=== PATIENT | male | born 1930 | race Caucasian/White ===

== ENCOUNTER 2019-12-18 11:18 | Inpatient (IN) | payer MEDICARE, BC ==
[~2019-12-18] VITALS: Ht 182.9 cm; Wt 92.3 kg
--- NOTE | 2019-12-18 11:35 | PHYS DOC ---
Past History Past Medical History: Anxiety, Depression, GERD, High Cholesterol, Hypertension Past Medical History BPH Past Surgical History: No Surgical History Smoking: Non-smoker Alcohol Use: None General Adult EDM: Chief Complaint: MECHANICAL FALL HPI: HPI: Patient is an 89 year old male who presents for evaluation of neck, left shoulder and low back pain after an apparent mechanical fall. Patient has dementia and is somewhat a poor historian. Patient lives in assisted living. This was a witnessed fall by his roommate. He fell using his walker and getting into a chair. The chair did break. There is some minimal bruising present. Patient has no focal deficits or lateralizing signs. Patient did arrived via ambulance for evaluation. C-collar was placed by the paramedics prior to arrival. Patient is not on blood thinners Review of Systems: Review of Systems: Constitutional: Denies fever or chills Eyes: Denies change in visual acuity HENT: Denies nasal congestion or sore throat Respiratory: Denies cough or shortness of breath Cardiovascular: Denies chest pain or edema GI: Denies abdominal pain, nausea, vomiting, bloody stools or diarrhea : Denies dysuria Musculoskeletal: has back pain and left shoulder pain Integument: Denies rash Neurologic: Denies headache, focal weakness or sensory changes Endocrine: Denies polyuria or polydipsia Lymphatic: Denies swollen glands Psychiatric: Denies depression or anxiety Heart Score: Risk Factors: Risk Factors: DM, Current or recent (<one month) smoker, HTN, HLP, family history of CAD, obesity. Risk Scores: Score 0 - 3: 2.5% MACE over next 6 weeks - Discharge Home Score 4 - 6: 20.3% MACE over next 6 weeks - Admit for Clinical Observation Score 7 - 10: 72.7% MACE over next 6 weeks - Early Invasive Strategies Allergies: Allergies: Allergies Coded Allergies Type Severity Reaction Last Updated Verified enalaprilat Allergy Unknown 12/18/19 Yes Physical Exam: PE: Constitutional: Well developed, well nourished, mild acute distress, non-toxic appearance. [] HENT: Normocephalic, atraumatic, bilateral external ears normal, oropharynx moist, no oral exudates, nose normal. [] Eyes: PERRL, EOMI, conjunctiva normal, no discharge. [] Neck: Normal range of motion, no tenderness, supple. [] Cardiovascular:Heart rate regular rhythm, no murmur [] Lungs & Thorax: Bilateral breath sounds clear to auscultation [] Abdomen: Bowel sounds normal, soft, no tenderness, no pulsatile masses. [] Skin: Warm, dry, no erythema, no rash. [] Back: moderate tenderness lower back. [] Extremities: tenderness left shoulder, no cyanosis ROM intact, mild edema. [] Neurologic: Alert and oriented to person only, normal motor function, normal sensory function, no focal deficits noted. [] Psychologic: Affect abnormal, judgement abnormal, mood abnormal. [] Current Patient Data: Labs: Laboratory Tests Test 12/18/19 11:40 12/18/19 12:49 White Blood Count 8.8 x10^3/uL Red Blood Count 3.88 x10^6/uL Hemoglobin 12.8 g/dL Hematocrit 38.4 % Mean Corpuscular Volume 99 fL Mean Corpuscular Hemoglobin 33 pg Mean Corpuscular Hemoglobin Concent 33 g/dL Red Cell Distribution Width 13.4 % Platelet Count 179 x10^3/uL Neutrophils (%) (Auto) 73 % Lymphocytes (%) (Auto) 18 % Monocytes (%) (Auto) 6 % Eosinophils (%) (Auto) 3 % Basophils (%) (Auto) 0 % Neutrophils # (Auto) 6.3 x10^3uL Lymphocytes # (Auto) 1.6 x10^3/uL Monocytes # (Auto) 0.5 x10^3/uL Eosinophils # (Auto) 0.2 x10^3/uL Basophils # (Auto) 0.0 x10^3/uL Sodium Level 143 mmol/L Potassium Level 4.3 mmol/L Chloride Level 108 mmol/L Carbon Dioxide Level 27 mmol/L Anion Gap 8 Blood Urea Nitrogen 26 mg/dL Creatinine 1.2 mg/dL Estimated GFR (Cockcroft-Gault) 57.1 BUN/Creatinine Ratio 22 Glucose Level 93 mg/dL Calcium Level 8.6 mg/dL Total Bilirubin 0.3 mg/dL Aspartate Amino Transf (AST/SGOT) 15 U/L Alanine Aminotransferase (ALT/SGPT) 22 U/L Alkaline Phosphatase 67 U/L Troponin I Quantitative < 0.017 ng/mL Total Protein 6.5 g/dL Albumin 3.3 g/dL Albumin/Globulin Ratio 1.0 Urine Collection Type Unknown Urine Color Yellow Urine Clarity Clear Urine pH 7.0 Urine Specific Kirby 1.025 Urine Protein Neg Urine Glucose (UA) Neg mg/dL Urine Ketones (Stick) Neg mg/dL Urine Blood Neg Urine Nitrite Neg Urine Bilirubin Neg Urine Urobilinogen Dipstick 0.2 mg/dL Urine Leukocyte Esterase Neg Urine RBC 1-2 /HPF Urine WBC Occ /HPF Urine Squamous Epithelial Cells Few /LPF Urine Bacteria 0 /HPF Current Medications Medications (Trade) Dose Ordered Sig/Shavon Route PRN Reason Start Time Stop Time Status Last Admin Dose Admin Hydralazine HCl (Apresoline) 10 mg 1X ONCE IV 12/18/19 13:00 12/18/19 13:02 DC 12/18/19 13:17 Vital Signs: Vital Signs Date Time Temp Pulse Resp B/P (MAP) Pulse Ox O2 Delivery O2 Flow Rate FiO2 12/18/19 11:24 97.8 66 14 168/91 (116 95 Room Air EKG: EKG: EKG read at 11:42 AM showed normal sinus rhythm, leftward axis, flattened T wave lead III and aVF, otherwise unremarkable, not STEMI rate 67 [] Radiology/Procedures: Radiology/Procedures: [place] [address] IMAGING REPORT Signed PATIENT: EVELIO BALDERRAMA ACCOUNT: [id number] : 1930 LOCATION: ER AGE: 89 SEX: M EXAM STATUS: REG ER ORD. PHYSICIAN: MELVA DAS DO REASON: pain, fall, injury PROCEDURE: SHOULDER 2+V LEFT Examination: SHOULDER 2+V LEFT History: Reason: pain, fall, injury / Spl. Instructions: / History: Comparison/Correlation: None Findings: Total 4 images of the left shoulder were obtained with portable technique. Osteopenia is present. Glenohumeral joint relationship is unremarkable. Narrowing of the the acromioclavicular and glenohumeral joints is present compatible with age. No significant degenerative change identified. Old left-sided rib fractures are present. Soft tissues are unremarkable. No acute fracture or bone destruction. Impression: No acute processes. Electronically signed by: Louie Esquivel MD (12/18/2019 12:31 PM) [id number] DICTATED AND SIGNED BY: LOUIE ESQUIVEL MD DATE: 12/18/19 1231 CC: MELVA DAS DO; DAVION HAYS MD ~ [] [address] [address] IMAGING REPORT Signed PATIENT: EVELIO BALDERRAMA ACCOUNT: [id number] : 1930 LOCATION: ER AGE: 89 SEX: M EXAM STATUS: REG ER ORD. PHYSICIAN: MELVA DAS DO REASON: fall, neck pain, weakness PROCEDURE: CT LUMBAR SPINE WO CONTRAST CT lumbar spine without contrast: Reason for examination: Fell with spine pain. Helical images were obtained to the lumbar spine with no contrast administered. Reconstruction was performed in sagittal and coronal planes. Exposure: One or more of the following individualized dose reduction techniques were utilized for this examination: 1. Automated exposure control 2. Adjustment of the mA and/or kV according to patient size 3. Use of iterative reconstruction technique. There is no acute fracture or subluxation seen. Posterior elements are intact. There are however degenerative changes and there is severe degenerative disc disease at the L3-4 and L4-5 disc levels. Hypertrophic changes at the posterior endplates and facet joints causes mild stenosis at the L2-3 level.There are also hypertrophic changes off the endplates and facet joints at the L3-4 disc level with mild right lateral recess and neural foraminal stenosis. No other site of significant spinal stenosis is evident. No acute abnormality seen at the sacrum or at the sacroiliac joints. IMPRESSION: No acute abnormality lumbar spine. 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 There is mild central stenosis at the L2-3 level. There is mild right lateral recess and neural foraminal stenosis at the L3-4 level. Electronically signed by: Marcy Bernstein MD (12/18/2019 12:37 PM) [facility] DICTATED AND SIGNED BY: MARCY BERNSTEIN MD DATE: 12/18/19 1237 CC: MELVA DAS DO; DAVION HAYS MD ~ [address] [address] IMAGING REPORT Signed PATIENT: EVELIO BALDERRAMA ACCOUNT: [id number] : 1930 LOCATION: ER AGE: 89 SEX: M EXAM STATUS: REG ER ORD. PHYSICIAN: MELVA DAS DO REASON: pelvis/hip area pain after injury PROCEDURE: PELVIS Pelvis AP portable at 1234: Reason for examination: Pelvic/hip pain after injury. There are postop changes in the left hip with a proximal femoral nail in place. No acute fractures seen in the pelvis or at the hips. Joint spaces are maintained. No abnormality seen at the sacrum or sacroiliac joints. IMPRESSION: Postop changes at the left hip. No acute bony abnormality in the pelvis. Electronically signed by: Marcy Bernstein MD (12/18/2019 1:30 PM) [facility] DICTATED AND SIGNED BY: MARCY BERNSTEIN MD DATE: 12/18/19 1330 CC: MELVA DAS DO; DAVION HAYS MD ~ Impressions: [place] [address] IMAGING REPORT Signed PATIENT: EVELIO BALDERRAMA ACCOUNT: [id number] : 1930 LOCATION: ER AGE: 89 SEX: M EXAM STATUS: REG ER ORD. PHYSICIAN: MELVA DAS DO REASON: fall, neck pain, weakness PROCEDURE: CT HEAD AND CERVICAL SPINE WO RS Compliance Statement: One or more of the following individualized dose reduction techniques were utilized for this examination: 1. Automated exposure control 2. Adjustment of the mA and/or kV according to patient size 3. Use of iterative reconstruction technique CT HEAD AND CERVICAL SPINE WITHOUT CONTRAST History: Reason: fall, neck pain, weakness Comparison: None. Procedure: Axial images are obtained of the head from the skull base through the vertex without IV contrast. Noncontrast helical CT of the cervical spine was performed. Axial, sagittal, and coronal reconstructions were obtained. Findings: The ventricles and sulci are prominent, consistent with age-related cerebral atrophy. There is supratentorial white matter hypoattenuation. This is a nonspecific finding but is commonly due to chronic small vessel ischemic disease in a patient of this age. No mass-effect, midline shift, hemorrhage or obvious acute infarction is identified. Basilar cisterns are patent. Bone windows demonstrate no significant calvarial abnormality. The visualized paranasal sinuses are clear. Mastoid air cells are well aerated. There is no evidence of acute fracture or acute malalignment of the cervical spine. There are no perched or jumped facet joints. The facet joints are severely hypertrophic. The right C2/C3 facet joint is fused. There is minimal grade 1 retrolisthesis of C5 on C6. Alignment is otherwise maintained. There is degenerative endplate spurring. There is disc space narrowing of C5/C6 and C6/C7. Vacuum disc phenomenon C5/C6. There is a 2.6 cm probable sebaceous cyst of the posterior right neck at the level of C3. Mild carotid artery calcification. The visualized lung apices are clear. IMPRESSION: 1. No acute intracranial abnormality. 2. No acute fracture of the cervical spine. Electronically signed by: Cheikh Garcia MD (12/18/2019 12:34 PM) [id number] DICTATED AND SIGNED BY: CHEIKH GARCIA MD DATE: 12/18/19 1234 CC: MELVA DAS DO; DAVION HAYS MD ~ Course & Med Decision Making: Course & Med Decision Making Pertinent Labs and Imaging studies reviewed. (See chart for details) [] Dragon Disclaimer: Eligio Disclaimer: This electronic medical record was generated, in whole or in part, using a voice recognition dictation system. 1245 Stable, baseline appropriate at this time. C-collar cleared at this time. Pt is resting comfortably. 1410 stable, patient awake alert and is not in distress. Blood pressure improved to 172/80s. We will talk to family before final disposition decision. Lab work and urinalysis was unremarkable. There is no fractures noted on the multiple x-rays obtained including his shoulder, pelvis and hip as well as head and neck. 1440 we were trying to ambulate patient after checking to make sure he does ambulate at baseline. As soon as patient sat up he immediately started vomiting. Disposition status will be admission for stabilization. Blood pressure also back up to [address] head was unremarkable. Dr. Dai called to discuss case. Departure Departure: Impression: Primary Impression: Contusion of left hip Qualified Codes: S70.02XA - Contusion of left hip, initial encounter Additional Impressions: Uncontrolled hypertension Nausea & vomiting Qualified Codes: R11.2 - Nausea with vomiting, unspecified Contusion of left shoulder Qualified Codes: S40.012A - Contusion of left shoulder, initial encounter Contusion of lower back Qualified Codes: S30.0XXA - Contusion of lower back and pelvis, initial encounter Fall, accidental Qualified Codes: W19.XXXA - Unspecified fall, initial encounter Disposition: 09 ADMITTED INPATIENT (Dr. Dai to admit) Condition: STABLE Justification of Admission: Justification of Admission: Justification of Admission Dx: N/A Hypertension: Symp at Rest MELVA DAS DO Dec 18, 2019 11:35
[2019-12-18 11:57] LABS: BASO % 0 % (0-3); EOS # 0.2 x10^3/uL (0.0-0.7); EOS % 3 % (0-3); HEMATOCRIT 38.4 % (39.0-53.0); HEMOGLOBIN 12.8 g/dL (13.0-17.5); LYMPH # 1.6 x10^3/uL (1.0-4.8); LYMPH % 18 % (24-48); MEAN CORPUSCULAR HEMOGLOBIN 33 pg (25-35); MEAN CORPUSCULAR HGB CONC 33 g/dL (31-37); MEAN CORPUSCULAR VOLUME 99 fL (79-100); MONO # 0.5 x10^3/uL (0.0-1.1); MONO % 6 % (0-9); NEUT # 6.3 x10^3uL (1.8-7.7); NEUT % 73 % (31-73); PLATELET COUNT 179 x10^3/uL (140-400); RED BLOOD COUNT 3.88 x10^6/uL (4.30-5.70); RED CELL DISTRIBUTION WIDTH 13.4 % (11.5-14.5); WHITE BLOOD COUNT 8.8 x10^3/uL (4.0-11.0)
[2019-12-18 12:06] LABS: CALCIUM 8.6 mg/dL (8.5-10.1); CREATININE 1.2 mg/dL (0.7-1.3); GFR 57.1; POTASSIUM 4.3 mmol/L (3.5-5.1)
[2019-12-18 12:12] LABS: ALBUMIN 3.3 g/dL (3.4-5.0); TOTAL BILIRUBIN 0.3 mg/dL (0.2-1.0); TOTAL PROTEIN 6.5 g/dL (6.4-8.2)
--- NOTE | 2019-12-18 12:34 | RAD ---
Examination: SHOULDER 2+V LEFT History: Reason: pain, fall, injury / Spl. Instructions: / History: Comparison/Correlation: None Findings: Total 4 images of the left shoulder were obtained with portable technique. Osteopenia is present. Glenohumeral joint relationship is unremarkable. Narrowing of the the acromioclavicular and glenohumeral joints is present compatible with age. No significant degenerative change identified. Old left-sided rib fractures are present. Soft tissues are unremarkable. No acute fracture or bone destruction. Impression: No acute processes. Electronically signed by: Louie Phipps MD (12/18/2019 12:31 PM) [id number]
--- NOTE | 2019-12-18 12:37 | RAD ---
PQRS Compliance Statement: One or more of the following individualized dose reduction techniques were utilized for this examination: 1. Automated exposure control 2. Adjustment of the mA and/or kV according to patient size 3. Use of iterative reconstruction technique CT HEAD AND CERVICAL SPINE WITHOUT CONTRAST History: Reason: fall, neck pain, weakness Comparison: None. Procedure: Axial images are obtained of the head from the skull base through the vertex without IV contrast. Noncontrast helical CT of the cervical spine was performed. Axial, sagittal, and coronal reconstructions were obtained. Findings: The ventricles and sulci are prominent, consistent with age-related cerebral atrophy. There is supratentorial white matter hypoattenuation. This is a nonspecific finding but is commonly due to chronic small vessel ischemic disease in a patient of this age. No mass-effect, midline shift, hemorrhage or obvious acute infarction is identified. Basilar cisterns are patent. Bone windows demonstrate no significant calvarial abnormality. The visualized paranasal sinuses are clear. Mastoid air cells are well aerated. There is no evidence of acute fracture or acute malalignment of the cervical spine. There are no perched or jumped facet joints. The facet joints are severely hypertrophic. The right C2/C3 facet joint is fused. There is minimal grade 1 retrolisthesis of C5 on C6. Alignment is otherwise maintained. There is degenerative endplate spurring. There is disc space narrowing of C5/C6 and C6/C7. Vacuum disc phenomenon C5/C6. There is a 2.6 cm probable sebaceous cyst of the posterior right neck at the level of C3. Mild carotid artery calcification. The visualized lung apices are clear. IMPRESSION: 1. No acute intracranial abnormality. 2. No acute fracture of the cervical spine. Electronically signed by: Cehikh Garcia MD (12/18/2019 12:34 PM) [id number]
--- NOTE | 2019-12-18 12:39 | RAD ---
CT lumbar spine without contrast: Reason for examination: Fell with spine pain. Helical images were obtained to the lumbar spine with no contrast administered. Reconstruction was performed in sagittal and coronal planes. Exposure: One or more of the following individualized dose reduction techniques were utilized for this examination: 1. Automated exposure control 2. Adjustment of the mA and/or kV according to patient size 3. Use of iterative reconstruction technique. There is no acute fracture or subluxation seen. Posterior elements are intact. There are however degenerative changes and there is severe degenerative disc disease at the L3-4 and L4-5 disc levels. Hypertrophic changes at the posterior endplates and facet joints causes mild stenosis at the L2-3 level.There are also hypertrophic changes off the endplates and facet joints at the L3-4 disc level with mild right lateral recess and neural foraminal stenosis. No other site of significant spinal stenosis is evident. No acute abnormality seen at the sacrum or at the sacroiliac joints. IMPRESSION: No acute abnormality lumbar spine. 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 There is mild central stenosis at the L2-3 level. There is mild right lateral recess and neural foraminal stenosis at the L3-4 level. Electronically signed by: Kasey Suh MD (12/18/2019 12:37 PM) ISIAH
[2019-12-18] MEDS ORDERED: hydrALAZINE 20 MG/ML VIAL. IV ONE (13:00)
--- NOTE | 2019-12-18 13:23 | EKG ---
[address] [address] Test Date: 2019-12-18 Test Time: 11:37:51 Pat Name: Brendan Morse Department: Room: Gender: M [place] Installer: : 1930 Requested By: MELVA DAS Order Number: [id number] Reading MD: Measurements Intervals [facility] Rate: 67 P: 1 AK: 224 QRS: -14 QRSD: 106 T: 28 QT: 402 QTc: 428 Interpretive Statements SINUS RHYTHM PROLONGED AK INTERVAL LEFTWARD AXIS QRS(T) CONTOUR ABNORMALITY CONSIDER INFERIOR INFARCT ABNORMAL ECG RI6.02 No previous ECG available for comparison
--- NOTE | 2019-12-18 13:33 | RAD ---
Pelvis AP portable at 1234: Reason for examination: Pelvic/hip pain after injury. There are postop changes in the left hip with a proximal femoral nail in place. No acute fractures seen in the pelvis or at the hips. Joint spaces are maintained. No abnormality seen at the sacrum or sacroiliac joints. IMPRESSION: Postop changes at the left hip. No acute bony abnormality in the pelvis. Electronically signed by: Kasey Suh MD (12/18/2019 1:30 PM) ISIAH
[2019-12-18 13:38] LABS: BILIRUBIN,URINE NEG (NEG); CLARITY,URINE CLEAR; COLOR,URINE YELLOW; GLUCOSE,URINE NEG (NEG); NITRITE,URINE NEG (NEG); UROBILINOGEN,URINE 0.2 mg/dL (0.2 mg/dL)
[2019-12-18 13:39] LABS: BACTERIA,URINE 0 /HPF (0-FEW); SQUAMOUS EPITHELIAL CELL,UR FEW /LPF; WBC,URINE OCC /HPF (0-4)
[2019-12-18] MEDS ORDERED: KETOROLAC 15 MG/ML VIAL. IVP ONE (14:15)
[2019-12-18] MEDS ORDERED: ONDANSETRON PF 4 MG/2 ML VIAL. IVP ONE (14:45)
[2019-12-18] MEDS ORDERED: ONDANSETRON PF 4 MG/2 ML VIAL. IVP PRN (15:45)
--- NOTE | 2019-12-18 17:30 | NUR ---
Patient arrived to unit via EMS. Patients VS obtained and are stable. Patient is offered food and drink. Patient is resting comfortably in bed at this time. Dr. Dai notified of admission held aspirin and ibuprofen. Will continue to monitor.
[2019-12-18] MEDS ORDERED: QUET100T4 PO (17:59)
[2019-12-18] MEDS ORDERED: MEMA10TA PO (17:59)
[2019-12-18] MEDS ORDERED: DOCU-109 PO (17:59)
[2019-12-18] MEDS ORDERED: MAG355OR12 PO (17:59)
[2019-12-18] MEDS ORDERED: TAMS0.4C97 PO (17:59)
[2019-12-18] MEDS ORDERED: AMLO5TAB4 PO (17:59)
[2019-12-18] MEDS ORDERED: ASPI-630 PO (17:59)
[2019-12-18] MEDS ORDERED: ACET500T68 PO (17:59)
[2019-12-18] MEDS ORDERED: POLY17PO5 PO (17:59)
[2019-12-18] MEDS ORDERED: CARB200T PO (17:59)
[2019-12-18] MEDS ORDERED: IBUP400T99 PO (17:59)
[2019-12-18] MEDS ORDERED: MELA5TAB21 PO (17:59)
[2019-12-18] MEDS ORDERED: MAGN24003 PO (17:59)
[2019-12-18] MEDS ORDERED: MULT-245 PO (17:59)
[2019-12-18] MEDS ORDERED: LOPE2TAB27 PO (17:59)
[2019-12-18 18:03] VITALS: BP 171/80
[2019-12-18] MEDS ORDERED: LOPERAMIDE 2 MG CAPSULE PO PRN (18:15)
[2019-12-18] MEDS ORDERED: MAG HYDROX/AL HYDROX/SIMETH 30 ML ORAL.SUSP PO PRN (18:15)
[2019-12-18] MEDS ORDERED: MAGNESIUM HYDROXIDE 2,400 MG/30 ML ORAL.SUSP. PO PRN (18:15)
[2019-12-18] MEDS: DOCUSATE SODIUM 100 MG CAPSULE PO SCH (20:29)
[2019-12-18] MEDS: carBAMazepine 200 MG TABLET PO SCH (20:29)
[2019-12-18] MEDS: ACETAMINOPHEN 500 MG TABLET PO SCH (20:29)
[2019-12-18] MEDS: MEMANTINE 10 MG TABLET. PO SCH (20:29)
[2019-12-18] MEDS ORDERED: TAMSULOSIN 0.4 MG CAP.ER.24H. PO SCH (21:00)
[2019-12-18] MEDS ORDERED: IBUPROFEN 400 MG TABLET. PO SCH (21:00)
[2019-12-18] MEDS ORDERED: QUEtiapine 100 MG TABLET. PO SCH (21:00)
[2019-12-18] MEDS ORDERED: MELATONIN 3 MG TABLET PO SCH (21:00)
--- NOTE | 2019-12-18 21:00 | NUR ---
While administering evening medications, pt had a small amount green emesis with multiple pills. Unsure if pt was able to keep any of the medications down. Pt cleaned and is resting in bed comfortably
[2019-12-18 23:30] VITALS: BP 132/76
[2019-12-19 05:32] VITALS: BP 149/77
[2019-12-19] MEDS: carBAMazepine 200 MG TABLET PO SCH (07:55)
[2019-12-19] MEDS: MEMANTINE 10 MG TABLET. PO SCH (07:56)
[2019-12-19] MEDS: DOCUSATE SODIUM 100 MG CAPSULE PO SCH (07:56)
[2019-12-19] MEDS: ACETAMINOPHEN 500 MG TABLET PO SCH ×2 (07:56→14:00)
[2019-12-19] MEDS ORDERED: POLYETHYLENE GLYCOL 3350 17 GM PACKET. PO SCH (09:00)
[2019-12-19] MEDS ORDERED: MULTIVITAMIN with MINERAL TABLET. PO SCH (09:00)
[2019-12-19] MEDS ORDERED: amLODIPine BESYLATE 5 MG TABLET PO SCH (09:00)
[2019-12-19 10:53] VITALS: BP 110/65
--- NOTE | 2019-12-19 14:21 | SSS ---
ADMIT DATE: 12/19/2019 HISTORY OF PRESENT ILLNESS: The patient is an 89-year-old male patient, a resident at [facility], who was brought to the Emergency Room with a mechanical fall. He has dementia and he had a witnessed fall by his roommate. He fell using his walker and getting into a chair; the chair did break and there is some minimal bruising present. The patient has no focal deficit or lateralizing sign. He did arrive by ambulance for evaluation. C-collar was placed by the paramedics prior to arrival. He is not on any blood thinner. He was evaluated in the Emergency Room and basically his lab works were unremarkable and he has had imaging including his x-ray of the shoulder as well as lumbar spine, head and neck and pelvic x-ray and all showed no evidence of any fracture and initially, the plan was for him to be sent back to [facility]; however, while he was still in the Emergency Room and apparently as soon as the patient sat up, he immediately started vomiting. Disposition status changed and therefore, the patient was admitted for observation. He did actually remain without any symptoms; in particular, he had no complaint of headache or pain anywhere. He had no further episodes of nausea or vomiting, has been ambulating without difficulty, tolerating his diet and a decision therefore was made to discharge him back to [facility]. PAST MEDICAL HISTORY: Significant for anxiety, depression, gastroesophageal reflux disease, hypertension, hyperlipidemia and benign prostatic hypertrophy. PAST SURGICAL HISTORY: Unremarkable. FAMILY HISTORY: Noncontributory. SOCIAL HISTORY: He lives at [facility]. He does not smoke, drink alcohol or use any recreational drugs. ALLERGIES: He is allergic to ENALAPRIL. MEDICATIONS: He is currently on following medications: He is on Flomax 0.4 mg at bedtime, amlodipine besylate 5 mg daily, aspirin 81 mg once a day, ibuprofen 400 mg at bedtime, acetaminophen 1000 mg 3 times a day, carbamazepine 200 mg twice a day for trigeminal neuralgia, quetiapine fumarate 100 mg at bedtime, Namenda 10 mg twice a day, Maalox 15 mL every 4 hours as needed, loperamide 2 mg every 2 hours as needed, docusate sodium 100 mg twice a day, milk of magnesia 30 mL p.o. daily p.r.n. for constipation, polyethylene glycol 17 grams daily and multivitamin 1 tablet once a day, melatonin 5 mg at bedtime. REVIEW OF SYSTEMS: As per history of present illness. PHYSICAL EXAMINATION: GENERAL: On arrival to the Emergency Room, he looked well and was clearly in no apparent respiratory distress. No pallor, jaundice, cyanosis or thyromegaly. No jugular venous distention. No limb edema. VITAL SIGNS: His heart rate was 66, blood pressure 168/91, temperature 97.8, respiratory rate was 14 and oxygen saturation was 95%. HEAD, EYES, EARS, NOSE AND THROAT: Normocephalic, atraumatic. NECK: Supple. HEART: Showed normal first and second heart sounds. No gallop, rub or murmur. CHEST: Clear to auscultation. No crepitation or rhonchi. ABDOMEN: Distended, soft, nontender. NEUROLOGIC: He is extremely hard of hearing, but otherwise all his cranial nerves are intact. EXTREMITIES: He moves extremities without difficulty. He ambulates with a walker. LABORATORY DATA: His lab work showed a white cell count of 8800, hemoglobin 13, hematocrit 38, MCV 99 and platelet count of 179,000. His serum sodium 143, potassium 4.3, chloride 108, bicarbonate 27, anion gap of 8, BUN 26, creatinine 1.2, estimated GFR was 57 mL per minute. His glucose was 93, calcium was 8.6. Total bilirubin, AST, ALT, alkaline phosphatase were normal. Total protein was 6.5, albumin was 3.3. X-ray of his right shoulder showed no acute process. X-ray of the lumbar spine showed no acute abnormality detected in the lumbar spine; showed degenerative spondylosis with severe degenerative disk disease at L3-L4 and L4-L5. There is mild central stenosis at L2-L3 level. There is also mild right lateral recess and neural foraminal stenosis at L3-L4. The CT scan of the head and cervical spine showed that the patient has no acute intracranial abnormality and no acute fracture of cervical spine. An x-ray of the pelvis showed that the patient has postoperative changes at the left hip, no acute abnormality in the pelvis. ASSESSMENT AND PLAN: The patient was observed overnight and he remained hemodynamically stable, afebrile. He has no further episodes of fall. No further episodes of nausea and vomiting. He will be discharged back to assisted living facility to continue on all his current medications. DEBORAH HAYDEN MD DR: Shirlene JOB#: [id number] / [id number]
--- NOTE | 2019-12-19 15:23 | NUR ---
Patient is discharged back home to [facility]. Patients IV is D/C'd and tele monitor removed. Patient has all belongings at time of discharge. Report called to [facility].
== END 2019-12-19 15:23 | disposition home or self-care (01) | DRG 605 ==
LOC: ER 11:18 → 1 SOUTH 14:45
PROVIDERS: ADMIT Internal Medicine; ATTEND Internal Medicine
DX: S30.0XXA Contusion of lower back and pelvis, initial encounter (principal); I16.0 Hypertensive urgency; R11.2 Nausea with vomiting, unspecified; S40.012A Contusion of left shoulder, initial encounter; S70.02XA Contusion of left hip, initial encounter; M47.9 Spondylosis, unspecified; M48.061 Spinal stenosis, lumbar region without neurogenic claudication; E78.00 Pure hypercholesterolemia, unspecified; E78.5 Hyperlipidemia, unspecified; F03.90 Unspecified dementia, unspecified severity, without behavioral disturbance, psychotic disturbance, mood disturbance, and anxiety; I10 Essential (primary) hypertension; M51.36 Other intervertebral disc degeneration, lumbar region; N40.0 Benign prostatic hyperplasia without lower urinary tract symptoms; W18.30XA Fall on same level, unspecified, initial encounter; F32.9 Major depressive disorder, single episode, unspecified; F41.9 Anxiety disorder, unspecified; K21.9 Gastro-esophageal reflux disease without esophagitis; Z20.828 Contact with and (suspected) exposure to other viral communicable diseases; W18.39XA Other fall on same level, initial encounter; Y93.89 Activity, other specified; Y92.89 Other specified places as the place of occurrence of the external cause; Y99.8 Other external cause status; Z88.8 Allergy status to other drugs, medicaments and biological substances
CPT/HCPCS: 36415; 70450; 72125; 72131; 72170; 73030; 80053; 81001; 84484; 85025; 93005; 96374; 96375; J0360; J1885; J2405; 99285-25; U0003-CS

== ENCOUNTER 2019-12-20 12:51 | Emergency (ER) | payer BC, MEDICARE ==
[~2019-12-20] VITALS: Ht 177.8 cm; Wt 93.0 kg
[~2019-12-20 12:51] MED LIST: ACET500T68 PO; AMLO5TAB4 PO; ASPI-630 PO; CARB200T PO; DOCU-109 PO; IBUP400T99 PO; LOPE2TAB27 PO; MAG355OR12 PO; MAGN24003 PO; MELA5TAB21 PO; MEMA10TA PO; MULT-245 PO; POLY17PO5 PO; QUET100T4 PO; TAMS0.4C97 PO
--- NOTE | 2019-12-20 13:42 | RAD ---
CT LUMBAR SPINE WO CONTRAST Date: 12/20/2019 1:03 PM Indication: Reason: fell on his back, having back pain / Spl. Instructions: / History: Comparison: 12/18/2019. Technique: Helical CT images of the lumbar spine were obtained without contrast. Coronal and sagittal reformatted images were also performed. One or more of the following dose reduction techniques were utilized: Automated exposure control (AEC), Adjustment of mA and/or kV according to patient size, Use of iterative reconstruction technique such as ASiR, CT scan done according to ALARA and image gently/image wisely. Findings: The lumbar spine is normally aligned. No acute fracture. Vertebral body heights are maintained without compression deformity. No aggressive lytic or blastic osseous lesion. Multilevel degenerative disc space height loss, worst and severe at L3-4. Multilevel mild and moderate spinal canal stenosis secondary to multilevel disc bulging and facet arthrosis. Multilevel mild and moderate neuroforaminal narrowing. Multilevel mild and moderate facet arthrosis. Left renal proteinaceous cyst. Mild aortoiliac atherosclerotic disease. IMPRESSION: No acute osseous abnormality of the lumbar spine. Electronically signed by: Herman Tyson MD (12/20/2019 1:40 PM) [id number]
--- NOTE | 2019-12-20 13:57 | RAD ---
EXAM: CT Head without IV contrast INDICATION: Reason: fell, hit head, confusion / Spl. Instructions: / History: TECHNIQUE: Multi-detector row CT images were obtained of the head without the use of IV contrast. All CT scans performed at this facility utilize dose optimization techniques as appropriate to the exam, including the following: Automated exposure control and adjustment of the mA and/or KV according to patient size (this includes techniques or standardized protocols for targeted exams where dose is indication/reason for exam). COMPARISON: 12/18/[address] FINDINGS: BRAIN PARENCHYMA: No evidence of acute intraparenchymal hemorrhage or infarct. Similar generalized parenchymal volume loss and white matter low density compatible with chronic ischemic microvascular change. VENTRICLES & EXTRA-AXIAL SPACES: Ventricles are within normal limits. Basilar cisterns are patent. No pathologic extra-axial fluid collection or mass. ORBITS: Orbital contents are unremarkable. SINUSES: Visualized paranasal sinuses and mastoid air cells are clear. OSSEOUS & SOFT TISSUES: Calvarium and skull base are intact. IMPRESSION: No acute intracranial pathology. *Note that at the time of initial report, C-spine images are not currently available for review. When they become available, an addendum can be issued including a report on the C-spine findings. The technologist has been contacted for assistance with this issue.* Electronically signed by: Liz Mendiola MD (12/20/2019 1:54 PM) [facility] [place]
--- NOTE | 2019-12-20 14:04 | RAD ---
EXAM: CT Thoracic Spine without IV contrast INDICATION: Reason: fell on his back, having back pain / Spl. Instructions: / History: TECHNIQUE: Multi-detector row CT images were obtained through the thoracic spine without the use of IV contrast. Post-processing sagittal and coronal reconstructed images were obtained for interpretation. All CT scans performed at this facility utilize dose optimization techniques as appropriate to the exam, including the following: Automated exposure control and adjustment of the mA and/or KV according to patient size (this includes techniques or standardized protocols for targeted exams where dose is indication/reason for exam). COMPARISON: Lumbar spine CT same day. FINDINGS: ALIGNMENT: There is no listhesis. Alignment is notable for mild exaggeration of normal thoracic kyphosis. OSSEOUS: The bones are diffusely osteopenic. There are concave deformities at the superior endplates of T3 and T4 with associated loss of height, compatible with age-indeterminate, possibly chronic superior endplate compression fractures. Incidental ossification between the posterior left fifth and sixth and sixth and seventh ribs is noted. DISC SPACES: Mildly narrowed at multiple levels. FACET JOINTS: Unremarkable. SPINAL CANAL: Unremarkable. NEUROFORAMINA: Unremarkable. SOFT TISSUES: Unremarkable. IMPRESSION: Superior endplate compression fractures at T3 and T4, age-indeterminate but likely chronic. No traumatic malalignment and no evidence of an epidural or paraspinal hematoma in the thoracic spine. Electronically signed by: Liz Mendiola MD (12/20/2019 2:01 PM) [facility] [place]
--- NOTE | 2019-12-20 14:24 | RAD ---
C-spine 4 views INDICATION: Fall and neck pain COMPARISON: Head CT same day, T-spine CT same day. FINDINGS: AP, open-mouth odontoid, lateral and swimmer's lateral views of the cervical spine show generalized osteopenia with no evidence of listhesis or no obvious acute fracture. Degenerative changes are present including at the atlantodens articulation, left greater than right. No prevertebral soft tissue swelling is identified. Incidental carotid calcifications are present. IMPRESSION: No acute traumatic finding shown by C-spine x-rays. Based on index of clinical suspicion, additional imaging by CT of the cervical spine can be pursued. Electronically signed by: Liz Mendiola MD (12/20/2019 2:21 PM) [facility] [place]
[2019-12-20 14:33] LABS: BASO % 0 % (0-3); EOS # 0.4 x10^3/uL (0.0-0.7); EOS % 7 % (0-3); HEMATOCRIT 37.6 % (39.0-53.0); HEMOGLOBIN 12.7 g/dL (13.0-17.5); LYMPH # 1.1 x10^3/uL (1.0-4.8); LYMPH % 17 % (24-48); MEAN CORPUSCULAR HEMOGLOBIN 33 pg (25-35); MEAN CORPUSCULAR HGB CONC 34 g/dL (31-37); MEAN CORPUSCULAR VOLUME 98 fL (79-100); MONO # 0.5 x10^3/uL (0.0-1.1); MONO % 9 % (0-9); NEUT # 4.3 x10^3uL (1.8-7.7); NEUT % 67 % (31-73); PLATELET COUNT 147 x10^3/uL (140-400); RED BLOOD COUNT 3.83 x10^6/uL (4.30-5.70); RED CELL DISTRIBUTION WIDTH 13.6 % (11.5-14.5); WHITE BLOOD COUNT 6.4 x10^3/uL (4.0-11.0)
[2019-12-20 14:46] LABS: CALCIUM 8.4 mg/dL (8.5-10.1); CREATININE 1.2 mg/dL (0.7-1.3); GFR 57.1
[2019-12-20 14:52] LABS: ALBUMIN 3.2 g/dL (3.4-5.0); TOTAL BILIRUBIN 0.4 mg/dL (0.2-1.0); TOTAL PROTEIN 6.5 g/dL (6.4-8.2)
[2019-12-20 15:20] VITALS: BP 178/97
--- NOTE | 2019-12-20 15:53 | PHYS DOC ---
Past History Past Medical History: Arthritis, Constipation, Dementia, High Cholesterol, Hypertension, Other Additional Past Medical Histor: trigeminal neuralgia, chronic pains, spondylosis, BPH Past Surgical History: No Surgical History Smoking: Non-smoker Alcohol Use: None General Adult EDM: Chief Complaint: MECHANICAL FALL HPI: HPI: Patient is a 89-year-old male who was brought here from [facility] after he fell. Patient was evaluated here 2 days ago, was admitted to hospital for observation after he fell as well. Work-up did not fi nd any acute problem. Patient complains of back pain, patient said he only had back pain. Patient denies any chest pain, no trouble breathing, no shortness of breath. Patient denies any cough or fever Review of Systems: Review of Systems: Constitutional: Denies fever or chills Eyes: Denies change in visual acuity HENT: Denies nasal congestion or sore throat Respiratory: Denies cough or shortness of breath Cardiovascular: Denies chest pain or edema GI: Denies abdominal pain, nausea, vomiting, bloody stools or diarrhea : Denies dysuria Musculoskeletal: Positive for low back pain, no joint pain. Integument: Denies rash Neurologic: Denies headache, focal weakness or sensory changes Endocrine: Denies polyuria or polydipsia Lymphatic: Denies swollen glands Psychiatric: Denies depression or anxiety Heart Score: Risk Factors: Risk Factors: DM, Current or recent (<one month) smoker, HTN, HLP, family history of CAD, obesity. Risk Scores: Score 0 - 3: 2.5% MACE over next 6 weeks - Discharge Home Score 4 - 6: 20.3% MACE over next 6 weeks - Admit for Clinical Observation Score 7 - 10: 72.7% MACE over next 6 weeks - Early Invasive Strategies Allergies: Allergies: Allergies Coded Allergies Type Severity Reaction Last Updated Verified enalaprilat Allergy Unknown 12/20/19 Yes Physical Exam: PE: Constitutional: Well developed, well nourished, no acute distress, non-toxic appearance. [] HENT: Normocephalic, atraumatic, bilateral external ears normal, oropharynx moist, no oral exudates, nose normal. [] Eyes: PERRLA, EOMI, conjunctiva normal, no discharge. [] Neck: Normal range of motion, no tenderness, supple, no stridor. [] Cardiovascular:Heart rate regular rhythm, no murmur [] Lungs & Thorax: Bilateral breath sounds clear to auscultation [] Abdomen: Bowel sounds normal, soft, no tenderness, no masses, no pulsatile masses. [] Skin: Warm, dry, no erythema, no rash. [] Back: No tenderness, no CVA tenderness. [] Extremities: No tenderness, no cyanosis, no clubbing, ROM intact, no edema. [] Neurologic: Alert and oriented X 3, normal motor function, normal sensory function, no focal deficits noted. [] Psychologic: Affect normal, judgement normal, mood normal. [] Current Patient Data: Labs: Laboratory Tests Test 12/20/19 14:20 White Blood Count 6.4 x10^3/uL (4.0-11.0) Red Blood Count 3.83 x10^6/uL (4.30-5.70) L Hemoglobin 12.7 g/dL (13.0-17.5) L Hematocrit 37.6 % (39.0-53.0) L Mean Corpuscular Volume 98 fL (79-100) Mean Corpuscular Hemoglobin 33 pg (25-35) Mean Corpuscular Hemoglobin Concent 34 g/dL (31-37) Red Cell Distribution Width 13.6 % (11.5-14.5) Platelet Count 147 x10^3/uL (140-400) Neutrophils (%) (Auto) 67 % (31-73) Lymphocytes (%) (Auto) 17 % (24-48) L Monocytes (%) (Auto) 9 % (0-9) Eosinophils (%) (Auto) 7 % (0-3) H Basophils (%) (Auto) 0 % (0-3) Neutrophils # (Auto) 4.3 x10^3uL (1.8-7.7) Lymphocytes # (Auto) 1.1 x10^3/uL (1.0-4.8) Monocytes # (Auto) 0.5 x10^3/uL (0.0-1.1) Eosinophils # (Auto) 0.4 x10^3/uL (0.0-0.7) Basophils # (Auto) 0.0 x10^3/uL (0.0-0.2) Sodium Level 144 mmol/L (136-145) Potassium Level 4.0 mmol/L (3.5-5.1) Chloride Level 108 mmol/L (98-107) H Carbon Dioxide Level 29 mmol/L (21-32) Anion Gap 7 (6-14) Blood Urea Nitrogen 29 mg/dL (8-26) H Creatinine 1.2 mg/dL (0.7-1.3) Estimated GFR (Cockcroft-Gault) 57.1 BUN/Creatinine Ratio 24 (6-20) H Glucose Level 100 mg/dL (70-99) H Calcium Level 8.4 mg/dL (8.5-10.1) L Magnesium Level 2.0 mg/dL (1.8-2.4) Total Bilirubin 0.4 mg/dL (0.2-1.0) Aspartate Amino Transferase (AST) 18 U/L (15-37) Alanine Aminotransferase (ALT) 21 U/L (16-63) Alkaline Phosphatase 58 U/L (46-116) Creatine Kinase 149 U/L (39-308) Total Protein 6.5 g/dL (6.4-8.2) Albumin 3.2 g/dL (3.4-5.0) L Albumin/Globulin Ratio 1.0 (1.0-1.7) Vital Signs: Vital Signs Date Time Temp Pulse Resp B/P (MAP) Pulse Ox O2 Delivery O2 Flow Rate FiO2 12/20/19 15:20 74 22 178/97 (124) 94 12/20/19 13:25 98.7 Room Air EKG: EKG: [] Radiology/Procedures: Radiology/Procedures: [][address] [address] IMAGING REPORT Signed PATIENT: EVELIO BALDERRAMA ACCOUNT: [id number] : 1930 LOCATION: ER AGE: 89 SEX: M EXAM STATUS: REG ER ORD. PHYSICIAN: HILLARY CELAYA DO REASON: fell, hit head, confusion PROCEDURE: CT HEAD AND CERVICAL SPINE WO EXAM: CT Head without IV contrast INDICATION: Reason: fell, hit head, confusion / Spl. Instructions: / History: TECHNIQUE: Multi-detector row CT images were obtained of the head without the use of IV contrast. All CT scans performed at this facility utilize dose optimization techniques as appropriate to the exam, including the following: Automated exposure control and adjustment of the mA and/or KV according to patient size (this includes techniques or standardized protocols for targeted exams where dose is indication/reason for exam). COMPARISON: 12/18/[address] FINDINGS: BRAIN PARENCHYMA: No evidence of acute intraparenchymal hemorrhage or infarct. Similar generalized parenchymal volume loss and white matter low density compatible with chronic ischemic microvascular change. VENTRICLES & EXTRA-AXIAL SPACES: Ventricles are within normal limits. Basilar cisterns are patent. No pathologic extra-axial fluid collection or mass. ORBITS: Orbital contents are unremarkable. SINUSES: Visualized paranasal sinuses and mastoid air cells are clear. OSSEOUS & SOFT TISSUES: Calvarium and skull base are intact. IMPRESSION: No acute intracranial pathology. *Note that at the time of initial report, C-spine images are not currently available for review. When they become available, an addendum can be issued including a report on the C-spine findings. The technologist has been contacted for assistance with this issue.* Electronically signed by: Santiago Mendiola MD (12/20/2019 1:54 PM) [place] [id number] IMAGING REPORT Signed PATIENT: EVELIO BALDERRAMA ACCOUNT: [id number] : 1930 LOCATION: ER AGE: 89 SEX: M EXAM STATUS: REG ER ORD. PHYSICIAN: IHLLARY CELAYA DO REASON: fell on his back, having back pain PROCEDURE: CT THORACIC SPINE WO CONTRAST EXAM: CT Thoracic Spine without IV contrast INDICATION: Reason: fell on his back, having back pain / Spl. Instructions: / History: TECHNIQUE: Multi-detector row CT images were obtained through the thoracic spine without the use of IV contrast. Post-processing sagittal and coronal reconstructed images were obtained for interpretation. All CT scans performed at this facility utilize dose optimization techniques as appropriate to the exam, including the following: Automated exposure control and adjustment of the mA and/or KV according to patient size (this includes techniques or standardized protocols for targeted exams where dose is indication/reason for exam). COMPARISON: Lumbar spine CT same day. FINDINGS: ALIGNMENT: There is no listhesis. Alignment is notable for mild exaggeration of normal thoracic kyphosis. OSSEOUS: The bones are diffusely osteopenic. There are concave deformities at the superior endplates of T3 and T4 with associated loss of height, compatible with age-indeterminate, possibly chronic superior endplate compression fractures. Incidental ossification between the posterior left fifth and sixth and sixth and seventh ribs is noted. DISC SPACES: Mildly narrowed at multiple levels. FACET JOINTS: Unremarkable. SPINAL CANAL: Unremarkable. NEUROFORAMINA: Unremarkable. SOFT TISSUES: Unremarkable. IMPRESSION: Superior endplate compression fractures at T3 and T4, age-indeterminate but likely chronic. No traumatic malalignment and no evidence of an epidural or paraspinal hematoma in the thoracic spine. Electronically signed by: Santiago Mendiola MD (12/20/2019 2:01 PM) [facility] [place] DICTATED AND SIGNED BY: SANTIAGO MENDIOLA MD DATE: 12/20/19 1401 CC: HILLARY CELAYA DO; DAVION HAYS MD ~ DICTATED AND SIGNED BY: SANTIAGO MENDIOLA MD DATE: 12/20/19 1355 CC: HILLARY CELAYA DO; DAVION HAYS MD ~ [place] [address] IMAGING REPORT Signed PATIENT: EVELIO BALDERRAMA ACCOUNT: [id number] : 1930 LOCATION: ER AGE: 89 SEX: M EXAM STATUS: REG ER ORD. PHYSICIAN: HILLARY CELAYA DO REASON: FALL NECK PAIN PROCEDURE: CERVICAL SPINE 2-3V C-spine 4 views INDICATION: Fall and neck pain COMPARISON: Head CT same day, T-spine CT same day. FINDINGS: AP, open-mouth odontoid, lateral and swimmer's lateral views of the cervical spine show generalized osteopenia with no evidence of listhesis or no obvious acute fracture. Degenerative changes are present including at the atlantodens articulation, left greater than right. No prevertebral soft tissue swelling is identified. Incidental carotid calcifications are present. IMPRESSION: No acute traumatic finding shown by C-spine x-rays. Based on index of clinical suspicion, additional imaging by CT of the cervical spine can be pursued. Electronically signed by: Santiago Mendiola MD (12/20/2019 2:21 PM) [facility] [place] DICTATED AND SIGNED BY: SANTIAGO MENDIOLA MD DATE: 12/20/19 1421 CC: HILLARY CELAYA DO; DAVION HAYS MD ~ Course & Med Decision Making: Course & Med Decision Making Pertinent Labs and Imaging studies reviewed. (See chart for details) Patient is an 89-year-old man who was evaluated in the ER after he fell at the assisted living facility, work-up did not find any acute problem. Patient was able to stand up and walk without any problem in the ER. We will discharge patient back to the assisted living facility. Dragon Disclaimer: Dragon Disclaimer: This electronic medical record was generated, in whole or in part, using a voice recognition dictation system. Departure Departure: Impression: Primary Impression: Accident due to mechanical fall without injury Additional Impression: Back pain Disposition: 01 HOME/RESIDENCE PRIOR TO ADM Condition: STABLE Referrals: DAVION HAYS MD (PCP) Patient Instructions: Back Injury Prevention, Back Pain, Adult Additional Instructions: Thank you for visiting our Emergency Department. We appreciate you trusting us with your care. If any additional problems come up don't hesitate to return to visit us. Please follow up with your primary care provider so they can plan additional care if needed and know about the problem that you had. If symptoms worsen come back to the Emergency Department. Any concerning symptoms that start such as chest pain, shortness of air, weakness or numbness on one side of the body, running high fevers or any other concerning symptoms return to the ER. Justification of Admission: Justification of Admission: Justification of Admission Dx: N/A Hypertension: Symp at Rest HILLARY CELAYA DO Dec 20, 2019 15:53
== END 2019-12-20 16:26 | disposition home or self-care (01) ==
LOC: ER 12:51
DX: M54.5 Low back pain (principal); M19.90 Unspecified osteoarthritis, unspecified site; F03.90 Unspecified dementia, unspecified severity, without behavioral disturbance, psychotic disturbance, mood disturbance, and anxiety; E78.00 Pure hypercholesterolemia, unspecified; I10 Essential (primary) hypertension; G89.29 Other chronic pain; Z88.8 Allergy status to other drugs, medicaments and biological substances; W18.39XD Other fall on same level, subsequent encounter
CPT/HCPCS: 36415; 70450; 72040; 72125; 72128; 72131; 80053; 82550; 83735; 85025; 99285

== ENCOUNTER 2019-12-21 05:21 | Observation (INO) | payer MEDICARE ==
[~2019-12-21] VITALS: Ht 188 cm; Wt 91.0 kg
--- NOTE | 2019-12-21 05:50 | PHYS DOC ---
Past History Past Medical History: Arthritis, Constipation, Dementia, High Cholesterol, Hypertension, Other Additional Past Medical Histor: trigeminal neuralgia, chronic pains, spondylosis, BPH (NIKKI ORNELAS DO) Past Surgical History: No Surgical History (NIKKI ORNELAS DO) Smoking: Non-smoker Alcohol Use: None (NIKKI ORNELAS DO) General Adult EDM: Chief Complaint: Fall HPI: HPI: 89-year-old male presents via EMS from his care facility with 3 falls in the last 3 days. Today, the patient states that he was trying to get out of bed when he started to feel dizzy and fell onto the floor. He crawled to the bathroom. He stayed there and that is where his caregivers found him. His walker was next to the bed, but the patient was on the bathroom floor. He tells me he has been having episodes of "swirling". Things look like they are spinning. This is intermittent and he is not sure exactly when it happens. He did have an episode in the emergency room, but currently is symptom-free. His only complaint is some upper neck pain. He denies numbness, tingling, altered sensation. He does not believe he has any other injuries. Patient is reported to have some level of dementia at baseline. He denies recent fever or chills. (NIKKI ORNELAS DO) Review of Systems: Review of Systems: Constitutional: Denies fever or chills Eyes: Denies change in visual acuity HENT: Neck pain Respiratory: Denies cough or shortness of breath Cardiovascular: Denies chest pain or edema GI: Denies abdominal pain, nausea, vomiting, bloody stools or diarrhea : Denies dysuria Musculoskeletal: Denies back pain or joint pain Integument: Denies rash Neurologic: Dizziness. Denies headache, focal weakness or sensory changes Endocrine: Denies polyuria or polydipsia Lymphatic: Denies swollen glands Psychiatric: Denies depression or anxiety (NIKKI ORNELAS DO) Heart Score: Risk Factors: Risk Factors: DM, Current or recent (<one month) smoker, HTN, HLP, family history of CAD, obesity. Risk Scores: Score 0 - 3: 2.5% MACE over next 6 weeks - Discharge Home Score 4 - 6: 20.3% MACE over next 6 weeks - Admit for Clinical Observation Score 7 - 10: 72.7% MACE over next 6 weeks - Early Invasive Strategies (NIKKI ORNELAS DO) Allergies: Allergies: Allergies Coded Allergies Type Severity Reaction Last Updated Verified enalaprilat Allergy Unknown 12/20/19 Yes (NIKKI ORNELAS DO) Physical Exam: PE: Constitutional: Well developed, well nourished, no acute distress, non-toxic appearance. [] HENT: Very hard of hearing. Normocephalic, atraumatic, bilateral external ears normal, oropharynx moist, no oral exudates, nose normal. [] Eyes: PERRLA, EOMI, conjunctiva normal, no discharge. [] Neck: Normal range of motion, mild upper cervical paraspinal muscle tenderness, supple, no stridor. [] Cardiovascular: Heart rate regular rhythm, no murmur [] Lungs & Thorax: Bilateral breath sounds clear to auscultation [] Abdomen: Bowel sounds normal, soft, no tenderness, no masses, no pulsatile masses. [] Skin: Warm, dry, no erythema, no rash. [] Back: No tenderness, no CVA tenderness. [] Extremities: No tenderness, no cyanosis, no clubbing, ROM intact, no edema. [] Neurologic: Alert and oriented X 3, normal motor function, normal sensory function, no focal deficits noted. [] Psychologic: Affect normal, judgement normal, mood normal. [] (NIKKI ORNELAS DO) Current Patient Data: Labs: Laboratory Tests Test 12/21/19 05:35 White Blood Count 7.4 x10^3/uL (4.0-11.0) Red Blood Count 3.71 x10^6/uL (4.30-5.70) L Hemoglobin 12.4 g/dL (13.0-17.5) L Hematocrit 36.5 % (39.0-53.0) L Mean Corpuscular Volume 98 fL (79-100) Mean Corpuscular Hemoglobin 34 pg (25-35) Mean Corpuscular Hemoglobin Concent 34 g/dL (31-37) Red Cell Distribution Width 13.5 % (11.5-14.5) Platelet Count 144 x10^3/uL (140-400) Neutrophils (%) (Auto) 69 % (31-73) Lymphocytes (%) (Auto) 15 % (24-48) L Monocytes (%) (Auto) 9 % (0-9) Eosinophils (%) (Auto) 6 % (0-3) H Basophils (%) (Auto) 0 % (0-3) Neutrophils # (Auto) 5.2 x10^3uL (1.8-7.7) Lymphocytes # (Auto) 1.1 x10^3/uL (1.0-4.8) Monocytes # (Auto) 0.7 x10^3/uL (0.0-1.1) Eosinophils # (Auto) 0.4 x10^3/uL (0.0-0.7) Basophils # (Auto) 0.0 x10^3/uL (0.0-0.2) Sodium Level 144 mmol/L (136-145) Potassium Level 3.7 mmol/L (3.5-5.1) Chloride Level 107 mmol/L (98-107) Carbon Dioxide Level 27 mmol/L (21-32) Anion Gap 10 (6-14) Blood Urea Nitrogen 26 mg/dL (8-26) Creatinine 1.1 mg/dL (0.7-1.3) Estimated GFR (Cockcroft-Gault) 63.2 BUN/Creatinine Ratio 24 (6-20) H Glucose Level 96 mg/dL (70-99) Calcium Level 8.6 mg/dL (8.5-10.1) Total Bilirubin 0.8 mg/dL (0.2-1.0) Aspartate Amino Transferase (AST) 22 U/L (15-37) Alanine Aminotransferase (ALT) 25 U/L (16-63) Alkaline Phosphatase 58 U/L (46-116) Troponin I Quantitative < 0.017 ng/mL (0-0.055) Total Protein 6.5 g/dL (6.4-8.2) Albumin 3.1 g/dL (3.4-5.0) L Albumin/Globulin Ratio 0.9 (1.0-1.7) L (NELSON MARSH DO) EKG: EKG: [] (NIKKI ORNELAS DO) EKG: EKG at 0625. Sinus rhythm. Heart rate 66. First-degree AV block with LA interval of 206 ms. Otherwise normal intervals. Inferior Q waves. No STEMI. Interpreted by me. (NELSON MARSH DO) Radiology/Procedures: Radiology/Procedures: [] (NIKKI ORNELAS DO) Radiology/Procedures: PROCEDURE: CT HEAD AND CERVICAL SPINE WO INDICATION: Reason: Headache and neck pain, 3 falls in 3 days / Spl. Instructions: / History: COMPARISON: One day prior TECHNIQUE: Axial CT images obtained through the head and cervical spine. One or more of the following individualized dose reduction techniques were utilized for this examination: 1. Automated exposure control; 2. Adjustment of the mA and/or kV according to patient size; 3. Use of iterative reconstruction technique. FINDINGS: Head: No midline shift. Suprasellar cistern is not effaced. Prominence of ventricles and sulci which can be seen with age-related volume loss. Regions of low density are again seen within the white matter. There is buckling of the nasal septum. No acute intracranial hemorrhage. Calcific atherosclerosis. Small defect within the right suboccipital region which could be postoperative. Osseous demineralization. Cervical spine: Degenerative changes throughout the cervical spine with osteophyte formation of the vertebral body endplates as well as facet and uncovertebral hypertrophy. Multilevel central canal and neural foraminal stenosis. Repeat demonstration of low density lesion posterior to the cervical spine measuring up to approximately 3.5 cm. Again could be a skin associated lesion with causes such as sebaceous cyst within the differential. Minimal loss of height of the C4 vertebral body is again seen with lucency through the anterior aspect of the vertebral body which appears unchanged and could be secondary to a prominent trabecula. Mild superior endplate compression deformity of T2 with moderate at T3 and T4. IMPRESSION: * No acute intracranial hemorrhage. * Degenerative changes of the cervical spine with multilevel central canal and neural foraminal stenosis again seen. * Mild compression deformity of T2 as well as moderate compression deformity of T3 and T4 again seen. Electronically signed by: Celio Gastelum MD (12/21/2019 6:47 AM) [id number] (NELSON MARSH DO) Course & Med Decision Making: Course & Med Decision Making Pertinent Labs and Imaging studies reviewed. (See chart for details) The patient's work-up is pending. I am signing the patient out to Dr. Jackson at 0600 [] (NIKKI ORNELAS DO) Course & Med Decision Making Assumed care from Dr. Ornelas at 0600. In summary, 89-year-old male with history of hypertension, hyperlipidemia, dementia, who presents from assisted living facility for evaluation of recurrent falls. The outside facility is reportedly no longer able to care for the patient's needs. No gross focal neurological de ficits. Noncontrast head CT is negative. Lab work is otherwise unrevealing including negative troponin. EKG shows no acute injury pattern. The patient remains well-appearing and nontoxic. He will be admitted for further management with likely need for placement in higher level of care. (NELSON MARSH DO) Dragon Disclaimer: Dragon Disclaimer: This electronic medical record was generated, in whole or in part, using a voice recognition dictation system. (NIKKI ORNELAS DO) Departure Departure: Impression: Primary Impression: Recurrent falls Additional Impression: Lightheadedness Disposition: 01 HOME/RESIDENCE PRIOR TO ADM Admitting Physician: Rick Smith (NELSON MARSH DO) Condition: STABLE Referrals: DAVION HAYS MD (PCP) Justification of Admission: Justification of Admission: Justification of Admission Dx: N/A Hypertension: Symp at Rest (NIKKI ORNELAS DO) NIKKI ORNELAS DO Dec 21, 2019 05:50 NELSON MARSH DO Dec 21, 2019 06:31
[2019-12-21 06:05] LABS: BASO % 0 % (0-3); EOS # 0.4 x10^3/uL (0.0-0.7); EOS % 6 % (0-3); HEMATOCRIT 36.5 % (39.0-53.0); HEMOGLOBIN 12.4 g/dL (13.0-17.5); LYMPH # 1.1 x10^3/uL (1.0-4.8); LYMPH % 15 % (24-48); MEAN CORPUSCULAR HEMOGLOBIN 34 pg (25-35); MEAN CORPUSCULAR HGB CONC 34 g/dL (31-37); MEAN CORPUSCULAR VOLUME 98 fL (79-100); MONO # 0.7 x10^3/uL (0.0-1.1); MONO % 9 % (0-9); NEUT # 5.2 x10^3uL (1.8-7.7); NEUT % 69 % (31-73); PLATELET COUNT 144 x10^3/uL (140-400); RED BLOOD COUNT 3.71 x10^6/uL (4.30-5.70); RED CELL DISTRIBUTION WIDTH 13.5 % (11.5-14.5); WHITE BLOOD COUNT 7.4 x10^3/uL (4.0-11.0)
[2019-12-21 06:15] LABS: CALCIUM 8.6 mg/dL (8.5-10.1); CREATININE 1.1 mg/dL (0.7-1.3); GFR 63.2; POTASSIUM 3.7 mmol/L (3.5-5.1)
--- NOTE | 2019-12-21 06:32 | EKG ---
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
[2019-12-21 06:33] LABS: ALBUMIN 3.1 g/dL (3.4-5.0); ALBUMIN/GLOBULIN RATIO 0.9 (1.0-1.7); TOTAL BILIRUBIN 0.8 mg/dL (0.2-1.0); TOTAL PROTEIN 6.5 g/dL (6.4-8.2)
--- NOTE | 2019-12-21 06:50 | RAD ---
INDICATION: Reason: Headache and neck pain, 3 falls in 3 days / Spl. Instructions: / History: COMPARISON: One day prior TECHNIQUE: Axial CT images obtained through the head and cervical spine. One or more of the following individualized dose reduction techniques were utilized for this examination: 1. Automated exposure control; 2. Adjustment of the mA and/or kV according to patient size; 3. Use of iterative reconstruction technique. FINDINGS: Head: No midline shift. Suprasellar cistern is not effaced. Prominence of ventricles and sulci which can be seen with age-related volume loss. Regions of low density are again seen within the white matter. There is buckling of the nasal septum. No acute intracranial hemorrhage. Calcific atherosclerosis. Small defect within the right suboccipital region which could be postoperative. Osseous demineralization. Cervical spine: Degenerative changes throughout the cervical spine with osteophyte formation of the vertebral body endplates as well as facet and uncovertebral hypertrophy. Multilevel central canal and neural foraminal stenosis. Repeat demonstration of low density lesion posterior to the cervical spine measuring up to approximately 3.5 cm. Again could be a skin associated lesion with causes such as sebaceous cyst within the differential. Minimal loss of height of the C4 vertebral body is again seen with lucency through the anterior aspect of the vertebral body which appears unchanged and could be secondary to a prominent trabecula. Mild superior endplate compression deformity of T2 with moderate at T3 and T4. IMPRESSION: * No acute intracranial hemorrhage. * Degenerative changes of the cervical spine with multilevel central canal and neural foraminal stenosis again seen. * Mild compression deformity of T2 as well as moderate compression deformity of T3 and T4 again seen. Electronically signed by: Celio Gastelum MD (12/21/2019 6:47 AM) [id number]
[2019-12-21] MEDS ORDERED: ONDANSETRON PF 4 MG/2 ML VIAL. IVP PRN (07:15)
--- NOTE | 2019-12-21 07:52 | NUR ---
NSG NOTE; ADMISSION ADMIT TO ROOM 109 AT 0750 FROM ED VIA CART ACCOMP BY EMS PERSONNEL HAS HAD MULTIPLE FALLS IN THE LAST SEVERAL DAYS AT HIS ASSISTED LIVING FACILITY [place]
[2019-12-21 08:20] VITALS: BP 193/83
--- NOTE | 2019-12-21 09:00 | NUR ---
[facility] NOTE; FAMILY CONTACT I CALLED SON VIOLA BALDERRAMA THIS AM AND HE AG[facility]. THE PATIENT DOES LIVE IN [facility] WITH HIS BUT SHE IS UNABLE TO MAKE DECISIONS FOR HIM SO HIS TWO SONS ARE THE FAMILY POINTS OF CONTACT AT THIS TIME Addendum: 12/21/19 at 1447 by ROBERT GARCIA RN GEOVANNI ROD AND I INDIVIDUALLY SPOKE WITH DANIELA CARRILLO AT [facility] WHO STATED PT'S DEMENTIA HAS GOTTEN WORSE AND THAT HE HAS BEEN ACTING INAPPROP AND VERBALLY AGGRESSIVE AT THE FACILITY. THEY REQUESTED PT BE PLACED [facility] FOR TREATMENT BEFORE RETURNING TO [facility]. CONSULT WAS FAXED TO [facility] AND I SPOKE WITH THE PUBLIC HEALTH POLICY ANALYST, CULLEN. PT HAS BEEN ACCEPTED TO THE UNIT WITH POSSIBLE PLACEMENT THERE TOMORROW, 12/22/19 COVID TEST 12/17 WAS NEGATIVE AND NEW TEST OBTAINED TODAY.
--- NOTE | 2019-12-21 09:49 | HP ---
ADMIT DATE: 12/21/2019 ATTENDING PHYSICIAN: Dr. Giles. CHIEF COMPLAINT: Frequent falls. HISTORY OF PRESENT ILLNESS: The patient is an 89-year-old gentleman from assisted living at [place]. He has been recently moved here with his . He has fallen 3 times in the last 3 days. He has reached the point in her life where he needs a higher level of care. No obvious fractures identified. He had a fairly negative workup in the ED. There is no active disease process. No COVID complaints. No stroke symptoms. He is very hard of hearing. He does not have his hearing aids and he is a very poor historian and he has significant dementia. His mild complaint is upper neck pain. No tingling, altered sensation. He is forgetful and has very little insight. PAST MEDICAL HISTORY: Obtained from the chart indicates that he has had trigeminal neuralgia, chronic degenerative arthritis, spondylosis, benign prostatic hypertrophy, dementia, hyperlipidemia and essential hypertension. ALLERGIES: HE HAS ALLERGIES TO ENALAPRIL, EXACT REACTION IS UNCLEAR. CURRENT MEDICINES: Include amlodipine, aspirin, Tegretol b.i.d., docusate, ibuprofen, magnesium hydroxide, melatonin, Namenda, multivitamin, MiraLax, Seroquel, and Flomax. SOCIAL HISTORY: He is a nonsmoker, nondrinker. FAMILY HISTORY: Unobtainable. REVIEW OF SYSTEMS: Unobtainable due to the patient's mentation. PHYSICAL EXAMINATION: GENERAL: When I saw him, this is a pleasant, confused elderly gentleman. INITIAL VITAL SIGNS: In the ED showed a blood pressure 176/81 mmHg, pulse of 67 and regular, temperature 98.0 degrees Fahrenheit, and oxygen saturation 97% on room air. HEENT: Head is without trauma. Pupils are reactive. Sclerae nonicteric. Oropharynx is clear. He is very hard of hearing. NECK: Supple, no bruits. LUNGS: Good breath sounds. CARDIOVASCULAR: Showed regular heart tones. No gallops. Peripheral pulses are palpable and full. ABDOMEN: Soft, nontender, no organomegaly. Bowel sounds are hypoactive. EXTREMITIES: Showed no cyanosis or edema. NEUROLOGIC: The patient is very confused, profoundly hard of hearing and has very little insight. He unfortunately is a poor historian. PERTINENT LABORATORY STUDIES AND IMAGING STUDIES: Cervical spine films showed degenerative changes of cervical spine with multilevel central canal and neural foraminal stenosis, which is old, mild compression deformity of T2 as well as T3 and T4. The CT of the head showed no acute intracranial process. Laboratory studies: His hemoglobin is 12.4 g/dL with white count of 7400. Electrolytes are within normal range. Creatinine is 1.1 mg/dL. Troponin levels are negative. Liver panel was unremarkable. ASSESSMENT: 1. This 89-year-old gentleman in assisted living, has frequent falls. 2. Profound dementia. 3. Profound presbycusis. 4. Labile hypertension. 5. Degenerative arthritis of cervical spine. PLAN: 1. Admit to the medical unit. 2. Tentative plans for transfer to the [facility] for Family. 3. We will test his COVID-19 swab. 4. Diet as tolerated. 5. Continue home meds as ordered. PACO GILES MD DR: CARON/jolanta JOB#: [id number] / [id number]
[2019-12-21 10:29] VITALS: BP 153/78
[2019-12-21] MEDS ORDERED: MELATONIN 3 MG TABLET PO PRN (10:45)
[2019-12-21] MEDS: MULTIVITAMIN with MINERAL TABLET. PO SCH (11:03)
[2019-12-21] MEDS: POLYETHYLENE GLYCOL 3350 17 GM PACKET. PO SCH (11:03)
[2019-12-21] MEDS: ASPIRIN CHEWABLE 81 MG TABLET. PO SCH (11:03)
[2019-12-21] MEDS: amLODIPine BESYLATE 5 MG TABLET PO SCH (11:04)
[2019-12-21] MEDS: DOCUSATE SODIUM 100 MG CAPSULE PO SCH ×2 (11:04→20:37)
[2019-12-21] MEDS: MECLIZINE 12.5 MG TABLET. PO SCH ×3 (11:04→20:37)
[2019-12-21] MEDS: carBAMazepine 200 MG TABLET PO SCH ×2 (11:04→20:37)
[2019-12-21] MEDS: MEMANTINE 10 MG TABLET. PO SCH ×2 (11:04→20:37)
--- NOTE | 2019-12-21 11:18 | NUR ---
NSG NOTE; DIZZINESS C/O DIZZINESS, "THE ROOM IS SPINNING" WHEN HE TILTS HIS HEAD OR LAYS DOWN. DR GILES NOTIFIED AND ORDERED MECLIZINE.
[2019-12-21] MEDS: ACETAMINOPHEN 500 MG TABLET PO SCH ×2 (14:36→20:37)
[2019-12-21 15:11] VITALS: BP 166/83
[2019-12-21 19:35] VITALS: BP 189/92
[2019-12-21] MEDS ORDERED: QUEtiapine 100 MG TABLET. PO SCH (21:00)
[2019-12-21 21:22] VITALS: BP 158/72
[2019-12-22 00:57] LABS: BACTERIA,URINE 0 /HPF (0-FEW); BILIRUBIN,URINE NEG (NEG); CLARITY,URINE CLEAR; COLOR,URINE YELLOW; GLUCOSE,URINE NEG (NEG); NITRITE,URINE NEG (NEG); RBC,URINE 0 /HPF (0-2); SQUAMOUS EPITHELIAL CELL,UR FEW /LPF; UROBILINOGEN,URINE 0.2 mg/dL (0.2 mg/dL); WBC,URINE OCC /HPF (0-4)
[2019-12-22 05:24] VITALS: BP 163/88
--- NOTE | 2019-12-22 05:41 | NUR ---
Pt is severely QUILEUTE. Pt's grandson brought bilateral hearing aids with recreational resort manager, along with glasses from his facility. Added to belongings list. Pt impulsive at times, attempting to get up without assistance despite continued instruction to use call light. Pt bed alarmed for safety.
[2019-12-22] MEDS: MECLIZINE 12.5 MG TABLET. PO SCH ×2 (08:09→14:57)
[2019-12-22] MEDS: ASPIRIN CHEWABLE 81 MG TABLET. PO SCH (08:09)
[2019-12-22] MEDS: POLYETHYLENE GLYCOL 3350 17 GM PACKET. PO SCH (08:09)
[2019-12-22] MEDS: carBAMazepine 200 MG TABLET PO SCH (08:10)
[2019-12-22] MEDS: amLODIPine BESYLATE 5 MG TABLET PO SCH (08:10)
[2019-12-22] MEDS: MULTIVITAMIN with MINERAL TABLET. PO SCH (08:10)
[2019-12-22] MEDS: ACETAMINOPHEN 500 MG TABLET PO SCH ×2 (08:10→14:34)
[2019-12-22] MEDS: MEMANTINE 10 MG TABLET. PO SCH (08:10)
[2019-12-22] MEDS: DOCUSATE SODIUM 100 MG CAPSULE PO SCH (08:10)
[2019-12-22 10:55] VITALS: BP 150/79
--- NOTE | 2019-12-22 12:20 | PN ---
DATE: 12/22/2019 ATTENDING PHYSICIAN: Dr. Giles. SUBJECTIVE: Very hard of hearing, dizziness has resolved. He wants to go home. He has very little insight and he remains very confused. OBJECTIVE FINDINGS: VITAL SIGNS: Blood pressure today is 158/72 mmHg, temperature 97.9 degrees Fahrenheit, oxygen saturation 97% and heart rate is regular. HEENT: Head is without trauma. Pupils are reactive. No nystagmus. NECK: Supple. LUNGS: Clear. CARDIOVASCULAR: Showed regular heart tones. ABDOMEN: Soft. EXTREMITIES: Without edema. NEUROLOGIC: Pleasantly confused. ASSESSMENT: 1. An 89-year-old gentleman with profound dementia. 2. Vertigo with frequent falls. 3. Profound presbycusis. 4. Labile hypertension. 5. Degenerative arthritis, cervical spine. PLAN: 1. Await COVID-19 swab. 2. Tentative plans to transfer to [facility] per family. 3. Diet as tolerated. 4. Continue meclizine for a couple more days. PACO GILES MD DR: CARON/jolanta JOB#: [id number] / [id number]
[2019-12-22] MEDS ORDERED: MECL-75 PO (14:49)
--- NOTE | 2019-12-22 16:34 | NUR ---
NSG NOTE; DISCHARGE TO [facility] REPORT CALLED TO ASA CARRILLO AT 1615 PT DISCHARGED FOR ADMISSION TO [facility] AT 1630 VIA W/C ACCOMP BY STAFF ALL PERSONNAL BELONGINGS SENT WITH PT INCLUDING HEARING AIDES X2 AND CHARGING STATION
--- NOTE | 2019-12-22 16:35 | DS ---
DATE OF DISCHARGE: 12/22/2019 ATTENDING PHYSICIAN: Dr. Giles. FINAL DISCHARGE DIAGNOSES: 1. Frequent falls. 2. Vertigo, improving. 3. Profound dementia with agitation. 4. Hypertension. 5. Idiopathic seizure. 6. Presbycusis. 7. Generalized debilitation. HISTORY AND PHYSICAL: This is an 89-year-old gentleman who had been living with his in independent living facility. He has had frequent falls, he is dizzy, symptoms of vertigo, very poor historian and unfortunately, he has reached the point he cannot take care of himself. Workup showed no distinct fractures; however, he has 2 sons who are power of banking attorney, they both live out of town. They wanted him to be evaluated and sent to the [facility] upon discharge at this time. PHYSICAL EXAMINATION: Please see the dictated note. PERTINENT LABORATORY AND X-RAY STUDIES: Lab work, CBC, chemistry panel was fairly unremarkable. The obligatory imaging studies showed no acute fracture. CT of the head showed no intracranial process. COURSE IN THE HOSPITAL: He was admitted. A COVID-19 swab was reported negative. He did get several days of meclizine with some improvement, dizziness had subsided, but was not completely gone. A consult was placed to Dr. Dangelo at the [facility] and he was accepted for transfer to the [facility] on the second hospital day. Therefore, he will continue his Norvasc, Flomax, aspirin, Tylenol, Tegretol, Seroquel, Namenda, meclizine, Colace, MiraLax, multivitamin and melatonin, dose is unchanged. He is a DNR per advanced directives. The patient was then discharged from our hospital in stable condition to go to the [facility] for further inpatient treatment. PACO GILES MD DR: CARON/jolanta JOB#: [id number] / [id number] DEBORAH Nation MD
== END 2019-12-22 16:30 ==
LOC: ER 05:21 → 1 SOUTH 07:02
PROVIDERS: ADMIT Hospitalist; ATTEND Hospitalist
DX: F02.80 Dementia in other diseases classified elsewhere, unspecified severity, without behavioral disturbance, psychotic disturbance, mood disturbance, and anxiety (principal); Z20.828 Contact with and (suspected) exposure to other viral communicable diseases; I10 Essential (primary) hypertension; M47.812 Spondylosis without myelopathy or radiculopathy, cervical region; R42 Dizziness and giddiness; R29.6 Repeated falls; R41.82 Altered mental status, unspecified; H91.10 Presbycusis, unspecified ear; G50.0 Trigeminal neuralgia; K59.00 Constipation, unspecified; M47.9 Spondylosis, unspecified; N40.0 Benign prostatic hyperplasia without lower urinary tract symptoms; E78.00 Pure hypercholesterolemia, unspecified; R53.81 Other malaise; R56.9 Unspecified convulsions
CPT/HCPCS: 36415; 70450; 72125; 80053; 81001; 84484; 85025; 93005; 97162; 99285; G0378; J8597; U0003; G0379

== ENCOUNTER 2019-12-22 16:45 | Inpatient (IN) | payer MEDICARE ==
[~2019-12-22] VITALS: Ht 182.9 cm; Wt 89.1 kg
--- NOTE | 2019-12-22 16:30 | NUR ---
Admission Note with Justification for Admission to [facility] Patient admitted to [facility] for protective oversight for emergency stabilization of acute psychiatric crisis. Pt admitted from: [address], he lives at [facility] Mode of arrival: wheelchair from [address] [place] [address] Accompanied By: [facility] Staff Precipitating behaviors that initiated intake and admission: it was reported that patient has been verbally aggressive, resisting help with transfers, agitation, rapid decline in cognition, threatening staff, swatting at staff and squares up and gets into their personal space. Frequent falls. Description of failure of out patient attempts at stabilization in previous setting list behavior and medication trials: redirection, increased dose in Namenda, initiated seroquel, tested for UTI and sent to hospital ER. Behaviors and assessment findings upon admission: Patient arrived from [address] [place] [address] in a wheelchair. He was calm and pleasant, oriented x3 with some confusion to situation, he said he is "in the nut house". He also said that he has a lot of falls. His skin is intact, warm and dry. Patient had negative Covid test today. He will be in isolation for 3 days, contact and droplet r/t having recently been possibly exposed to Covid. Dinner tray ordered and patient showed where the bathroom is located. Plan: Admit for protective oversight for adjustment and stabilization of medications, behaviors and mood. Intense treatment regimen including groups, medication adjustments, therapy, consistent regimen for ADL's, self care, and sleep hygiene. Daily monitoring by Inpatient staff, Psychiatry, and Medical Physician.
[~2019-12-22 16:45] MED LIST changes: +MECL-75 PO
[2019-12-22] MEDS ORDERED: MAG HYDROX/AL HYDROX/SIMETH 30 ML ORAL.SUSP PO PRN (17:00)
[2019-12-22] MEDS ORDERED: MAGNESIUM HYDROXIDE 2,400 MG/30 ML ORAL.SUSP. PO PRN (17:00)
[2019-12-22] MEDS ORDERED: METHYL SALICYLATE/MENTHOL TOPICAL OINTMENT 57GM TUBE. TP PRN (17:00)
[2019-12-22] MEDS ORDERED: ACETAMINOPHEN 325 MG TABLET PO PRN (17:00)
--- NOTE | 2019-12-22 18:20 | NUR ---
Patient in contact and droplet isolation r/t possible recent covid exposure. Isolation period will be for three days.
[2019-12-22] MEDS ORDERED: NON FORMULARY ITEM (Magnesium Hydroxide (Milk Of Magnesia) 2,400 MG) PO PRN (19:15)
[2019-12-22] MEDS: DOCUSATE SODIUM 100 MG CAPSULE PO SCH (20:25)
[2019-12-22] MEDS: MECLIZINE 12.5 MG TABLET. PO SCH (20:26)
[2019-12-22] MEDS: carBAMazepine 200 MG TABLET PO SCH (20:26)
[2019-12-22] MEDS: MEMANTINE 10 MG TABLET. PO SCH (20:26)
[2019-12-22] MEDS: TAMSULOSIN 0.4 MG CAP.ER.24H. PO SCH (20:26)
[2019-12-22] MEDS: ACETAMINOPHEN 500 MG TABLET PO SCH (20:26)
[2019-12-22 20:37] VITALS: BP 159/91
[2019-12-22] MEDS ORDERED: IBUPROFEN 400 MG TABLET. PO SCH (21:00)
[2019-12-22] MEDS ORDERED: QUEtiapine 100 MG TABLET. PO SCH (21:00)
[2019-12-22] MEDS ORDERED: MELATONIN 3 MG TABLET PO PRN (21:00)
--- NOTE | 2019-12-22 22:00 | PDOC ---
Exam Note: Kareem Note: Please also refer to the separate dictated note~for this date of service dictated separately.~Patient seen individually. Discussed the patient with Nursing staff reviewed the chart.~Reviewed interim history and current functioning. Reviewed vital signs,~Labs/ Radiology~and current medications noted below. Continue current treatment with the changes noted in the dictated addendum note Assessment: Vital Signs/I&O: Vital Signs Date Time Temp Pulse Resp B/P (MAP) Pulse Ox O2 Delivery O2 Flow Rate FiO2 12/22/19 20:37 97.8 71 18 159/91 (113) 93 Room Air Current Medications: Meds: Current Medications Medications (Trade) Dose Ordered Sig/Shavon Route PRN Reason Start Time Stop Time Status Last Admin Dose Admin Acetaminophen (Tylenol) 1,000 mg TID PO 12/22/19 21:00 12/22/19 20:26 Docusate Sodium (Colace) 100 mg BID PO 12/22/19 21:00 12/22/19 20:25 Tamsulosin HCl (Flomax) 0.4 mg QHS PO 12/22/19 21:00 12/22/19 20:26 Meclizine HCl (Antivert) 25 mg TID PO 12/22/19 21:00 12/22/19 20:26 Carbamazepine (TEGretol) 200 mg BID PO 12/22/19 21:00 12/22/19 20:26 Memantine (Namenda) 10 mg BID PO 12/22/19 21:00 12/22/19 20:26 Quetiapine Fumarate (SEROquel) 100 mg QHS PO 12/22/19 21:00 12/22/19 20:26 Melatonin (Melatonin) 6 mg PRN QHS PRN PO INSOMNIA 12/22/19 21:00 12/22/19 20:25 I have reviewed the current psychotropics carefully including drug interactions. Risk benefit ratio favors no change other than as noted in my dictated progress note. Diagnosis: Problems: (1) Accident due to mechanical fall without injury (2) Dementia (3) Nausea and vomiting AMELIA PRAJAPATI MD Dec 22, 2019 22:00
--- NOTE | 2019-12-22 22:06 | NUR ---
Location of Patient during Assessment: Pt lying in bed with eyes closed. Behaviors Mood and Affect this shift: Pt calm, pleasant, and cooperative this evening, no agitation, aggression, or SIB noted. Medication Compliant: Pt compliant with medications administered whole. Assessment Compliant: Pt cooperative and compliant with assessment. Pt very KIVALINA but does wear bilateral SIMON. Pt remains in isolation at this time per protocol. Response After Interventions: Pt calm, resting in bed with eyes closed at this time.
[2019-12-23 04:47] VITALS: BP 175/88
[2019-12-23 06:52] LABS: BASO % 1 % (0-3); EOS # 0.3 x10^3/uL (0.0-0.7); EOS % 8 % (0-3); HEMATOCRIT 35.1 % (39.0-53.0); HEMOGLOBIN 11.9 g/dL (13.0-17.5); LYMPH # 1.2 x10^3/uL (1.0-4.8); LYMPH % 28 % (24-48); MEAN CORPUSCULAR HEMOGLOBIN 33 pg (25-35); MEAN CORPUSCULAR HGB CONC 34 g/dL (31-37); MEAN CORPUSCULAR VOLUME 97 fL (79-100); MONO # 0.5 x10^3/uL (0.0-1.1); MONO % 11 % (0-9); NEUT # 2.2 x10^3uL (1.8-7.7); NEUT % 52 % (31-73); PLATELET COUNT 185 x10^3/uL (140-400); RED CELL DISTRIBUTION WIDTH 13.4 % (11.5-14.5); WHITE BLOOD COUNT 4.2 x10^3/uL (4.0-11.0)
[2019-12-23 06:59] LABS: ALBUMIN 2.9 g/dL (3.4-5.0); ALBUMIN/GLOBULIN RATIO 0.9 (1.0-1.7); CALCIUM 8.5 mg/dL (8.5-10.1); GFR 70.5; POTASSIUM 3.7 mmol/L (3.5-5.1); TOTAL BILIRUBIN 0.4 mg/dL (0.2-1.0); TOTAL PROTEIN 6.3 g/dL (6.4-8.2)
[2019-12-23] MEDS ORDERED: amLODIPine BESYLATE 5 MG TABLET PO SCH (09:00)
[2019-12-23] MEDS: POLYETHYLENE GLYCOL 3350 17 GM PACKET. PO SCH (09:03)
[2019-12-23] MEDS: MULTIVITAMIN with MINERAL TABLET. PO SCH (09:03)
[2019-12-23] MEDS: carBAMazepine 200 MG TABLET PO SCH ×2 (09:03→20:24)
[2019-12-23] MEDS: ACETAMINOPHEN 500 MG TABLET PO SCH ×3 (09:03→20:24)
[2019-12-23] MEDS: MECLIZINE 12.5 MG TABLET. PO SCH ×3 (09:03→20:24)
[2019-12-23] MEDS: DOCUSATE SODIUM 100 MG CAPSULE PO SCH ×2 (09:03→20:24)
[2019-12-23] MEDS: ASPIRIN CHEWABLE 81 MG TABLET. PO SCH (09:04)
[2019-12-23] MEDS: MEMANTINE 10 MG TABLET. PO SCH ×2 (09:04→20:24)
[2019-12-23] MEDS ORDERED: amLODIPine BESYLATE 5 MG TABLET PO ONE (11:30)
--- NOTE | 2019-12-23 13:08 | HP ---
ADMIT DATE: 12/22/2019 PSYCHIATRIC ADMISSION HISTORY/EVALUATION IDENTIFYING DATA: The patient is an 89-year-old male referred to us from [facility] Medical/Surgical floor where he presented from [facility] for medical stabilization and was noted to be verbally aggressive, sexually inappropriate with female staff members. He was resisting help with transfers, at times agitated, had a rapid decline in his cognition, threatening staff, "swatted at staff's hands." "You are not going to stop me." He was posturing, getting into the staff's personal space. Behaviors were deemed dangerous, unmanageable, both on the medical/surgical floor and at [facility]. He had failed outpatient psychiatric interventions resulting in this referral. CHIEF COMPLAINT: "I don't do those things." HISTORY OF PRESENT ILLNESS: The patient has a history of progressive short-term memory deficits, increasing symptoms of depression, paranoia, mood lability, sleep and appetite changes. He had been living at the assisted living with his . Behaviors were deemed dangerous at the facility, then he was sent to [place] for medical stabilization and then to us. Does have a history of mood swings, no clear history of bipolar disorder. PAST PSYCHIATRIC HISTORY: As noted above. MEDICAL HISTORY: The patient is somewhat hard of hearing, hyperlipidemia, hypertension, BPH, trigeminal neuralgia, frequent falls with repeat CT head unremarkable, unstable gait. DIET: Cardiac, regular, but takes medications whole. Ambulates with walker, unsteady with transfers. ALLERGIES: VASOTEC. ACCU-CHEKS: None. CODE STATUS: Full code. CURRENT PSYCHOTROPICS: Melatonin 6 mg at bedtime p.r.n., Seroquel 100 mg at bedtime, Namenda 10 mg b.i.d., Tegretol 200 mg b.i.d. for trigeminal neuralgia. FAMILY HISTORY: Noncontributory. The patient reportedly had 2 of his sons commit suicide, but this information has to be corroborated with the family. SOCIAL HISTORY: No history of alcohol, drug abuse, physical, sexual or elder abuse. Not known to be a perpetrator. The patient states he has a Ph.D. 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 We will have to confirm all this with his sons. REVIEW OF SYSTEMS: No CV, , pulmonary, eye system symptoms on review. MENTAL STATUS EXAMINATION: Oriented to himself and situation. Speech is coherent, somewhat hard of hearing. Abstraction fair, computation impaired, language function intact, attention span short. Mood and affect somewhat anxious, paranoid, suspicious. No suicidal or homicidal ideation. LABORATORY DATA: Reviewed. IMPRESSION: Major depressive disorder with psychotic features, mild cognitive impairment; impulse control disorder; anxiety disorder, unspecified. Rest as above. PLAN: Admit to Geropsychiatry Unit at [facility]. I will see the patient daily individually from a psychiatric standpoint. Medical followup with Dr. Dai/Dr. Smith. Continue the patient on his current psychotropics, may consider reducing Seroquel, given his history of falls, may consider Neurology consult, Dr. Gao, because the patient complains of some vague neurological symptoms including seeing everything in a white color at times. We will check orthostatic blood pressures given his history of falls. Make further adjustments as clinically indicated. ESTIMATED LENGTH OF STAY: 10-12 days. MAN Aracely PRAJAPATI MD DR: ANJELICA/jolanta JOB#: [id number] / [id number]
[2019-12-23 14:18] LABS: CARBAM 4.7 mcg/mL (4.0-12.0)
[2019-12-23 14:29] LABS: THYROID STIM HORMONE (TSH) 1.454 uIU/mL (0.358-3.740)
[2019-12-23 14:37] VITALS: BP 148/82
[2019-12-23 14:40] VITALS: BP 157/76
[2019-12-23 14:43] VITALS: BP 144/79
--- NOTE | 2019-12-23 14:49 | NUR ---
PSYCHOSOCIAL ASSESSMENT ADMISSION DATE: 12/22/19 CONTACT INFORMATION: DPOA/Guardian Contact Name: Aayush Morse-son Contact Phone #: [phone] ETHNIC ORIGIN: REASONS FOR ADMISSION: Aggressive Agitated Angry Combative Confusion/Disoriented Poor impulse control ADDITIONAL ADMISSION COMMENTS: Per intake record, Livan was verbally aggressive towards female staff at [facility], sexually inappropriate, resists assistance to transfer, agitated, rapid declining cognition, threatens staff, swatted staff's hands, and bulks up and gets into staff's personal space. REASON FOR ADMISSION IN PATIENT/FAMILY'S OWN WORDS: Per Livan, "My memory is so bad, I had some problems downstairs throwing myself around and yelling." PATIENT/FAMILY EXPECTATIONS FOR ADMISSION: Mood and behavior stabilization LIVING SITUATION: Patient lives with: Assisted Living Other living arrangements: [facility] Contact Name: Lyssa Contact Address: [address] [place] [address] Contact Phone #: [phone] Contact Fax #: [phone] FAMILY RELATIONS: Marital Status: # of Marriages: 1 # of Children: 4 [facility] Family Support: Concerned Cooperative Additional Comments r/t Family: Livan Genna a couple years out of high school, meeting at [employer]. They had four children, Bonilla Randall, Fely, Werner, and Aayush. Livan has grandchildren that are involved in his life. SIGNIFICANT PSYCHIATRIC/MEDICAL HISTORY: Psychiatric/Treatment History: Livan reports no previous mental health treatment. Pertinent Family History: Livan suspects his father may have had mental illness. Livan's brother Dayne was an alcoholic. Livan's son Werner was dx with schizophrenia and bipolar and by suicide in 1998. Livan's daughter Fely suffered a back injury and by suicide (addicted to opioids and vodka) in Livan's home in 2009. HISTORICAL DATA: Childhood Environment: [place] [facility] Additional Comments: Livan was born in [facility] to Art and Eduardo Morse. Livan's father from pneumonia when Livan was 3 years old. Livan was the youngest of three boys. Livan's brother Dayne is and Art remains alive in [place]. Livan's mother re- to "" and they had two children together, Nuno([place]) and Erika([place]). Livan reported fond memories of his childhood and recalled his mother and her family as very loving. Trauma History: None Drug Abuse History last 12 months: None Comment: Livan denies smoking, drinking, or drug use. 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 service: 2 years- [employer] Protestant background: Livan was raised a [facility] Zoroastrianism and was baptized at 11 years old. He is currently of the Presbyterian pierre and shared that his pierre is very important to him and his belief in God has given him strength during times of difficulty. Sexual orientation: Heterosexual Educational Level: Livan obtained a doctorate degree in mechanical [place] [employer] [facility] [place] Past/Present Interests/Hobbies: Livan has enjoyed traveling, photography, writing poetry, and sports. Financial support/resources: None Social Security Monthly income: Unknown-adequate Person handling finances: Aayush-son Do you have a history of legal problems: None reported Cultural considerations: None reported SOCIAL RELATIONSHIPS-CURRENT/PAST: Psychiatrist: None PCP: Dr. [phone] Counselor/Therapist: None Veterans' Administration: None Support Group: None Feeder Switchboard Operator/Cyber Intelligence Analyst: None Other relationships: Family and support from staff at [facility] STRENGTHS & WEAKNESSES: Patient's strengths: Good family support Good verbal skills Approachable Engaged Patient's weaknesses: Impulsive Health problems Physically Aggressive Other patient weaknesses: Impaired memory PRELIMINARY PLAN OF TREATMENT: Preliminary plan: Medication Stabilization Monitor Med Effects Control abnormal behavior Dec. Outbursts Dec. Aggression Other preliminary treatment comments: Livan will be encouraged to be involved in small group activities while on the unit. DISCHARGE PLANNING: Discharge planning/disposition: Assisted Living Memory Care Additional discharge needs identified: [facility] will re-evaluate once Livan is stable. If they are not able to meet Livan's care needs, Family is checking into [facility] for possible memory care. Out patient psychiatry and counseling support would be beneficial if available. ADDITIONAL INFORMATION: Other Pertinent Data: Met with Livan on this date to support and complete psychosocial assessment. Livan was alert and engaged throughout visit. While he was slow to respond and needed ample time to express himself, he recalled most remote events as confirmed by reviewing psychosocial information with Livan's son Aayush. Livan was calm and without s/s of distress throughout visit. He thanked this worker at the end of conversation. Aayush, son/POA, will be involved in team meeting via phone on 12/29/19.
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
--- NOTE | 2019-12-23 15:06 | NUR ---
Nursing note: Pt in his room when approached for morning med pass and assessment. He was very pleasant, social, compliant with meds whole, and cooperative with his assessment. Pt c/o some dizziness when he stands every once in a while. Orthostatic BP's obtained and were stable. Pt was later assisted to the bathroom. He had some unsteadiness, but denied dizziness at that time. Pt was tired of laying in bed and requested to do some exercises with this nurse. Pt requested this nurse to do knee bends with him and was happy to have someone else in his room to converse and interact with. He is now back to laying down in his bed. Will continue to monitor.
[2019-12-23 16:07] LABS: THYROXINE 5.3 ug/dL (4.5-12.0)
[2019-12-23 16:11] VITALS: BP 148/82
--- NOTE | 2019-12-23 17:32 | NUR ---
Nursing note: Pt c/o that everything is white, he is unable to distinguish between the wall and the floor, which causes him to become dizzy at times. Dr. Gao consulted and paged. Awaiting his return phone call.
[2019-12-23] MEDS: TAMSULOSIN 0.4 MG CAP.ER.24H. PO SCH (20:23)
[2019-12-23] MEDS: QUEtiapine 100 MG TABLET. PO SCH (20:24)
--- NOTE | 2019-12-23 22:09 | PDOC ---
Exam Note: Kareem Note: Please also refer to the separate dictated note~for this date of service dictated separately.~Patient seen individually. Discussed the patient with Nursing staff reviewed the chart.~Reviewed interim history and current functioning. Reviewed vital signs,~Labs/ Radiology~and current medications noted below. Continue current treatment with the changes noted in the dictated addendum note Assessment: Vital Signs/I&O: Vital Signs Date Time Temp Pulse Resp B/P (MAP) Pulse Ox O2 Delivery O2 Flow Rate FiO2 12/23/19 16:11 98.2 67 16 148/82 (104) 94 12/23/19 14:37 Room Air Labs: Laboratory Tests Test 12/23/19 06:25 White Blood Count 4.2 x10^3/uL (4.0-11.0) Red Blood Count 3.60 x10^6/uL (4.30-5.70) L Hemoglobin 11.9 g/dL (13.0-17.5) L Hematocrit 35.1 % (39.0-53.0) L Mean Corpuscular Volume 97 fL (79-100) Mean Corpuscular Hemoglobin 33 pg (25-35) Mean Corpuscular Hemoglobin Concent 34 g/dL (31-37) Red Cell Distribution Width 13.4 % (11.5-14.5) Platelet Count 185 x10^3/uL (140-400) Neutrophils (%) (Auto) 52 % (31-73) Lymphocytes (%) (Auto) 28 % (24-48) Monocytes (%) (Auto) 11 % (0-9) H Eosinophils (%) (Auto) 8 % (0-3) H Basophils (%) (Auto) 1 % (0-3) Neutrophils # (Auto) 2.2 x10^3uL (1.8-7.7) Lymphocytes # (Auto) 1.2 x10^3/uL (1.0-4.8) Monocytes # (Auto) 0.5 x10^3/uL (0.0-1.1) Eosinophils # (Auto) 0.3 x10^3/uL (0.0-0.7) Basophils # (Auto) 0.0 x10^3/uL (0.0-0.2) Sodium Level 141 mmol/L (136-145) Potassium Level 3.7 mmol/L (3.5-5.1) Chloride Level 107 mmol/L (98-107) Carbon Dioxide Level 27 mmol/L (21-32) Anion Gap 7 (6-14) Blood Urea Nitrogen 20 mg/dL (8-26) Creatinine 1.0 mg/dL (0.7-1.3) Estimated GFR (Cockcroft-Gault) 70.5 BUN/Creatinine Ratio 20 (6-20) Glucose Level 97 mg/dL (70-99) Calcium Level 8.5 mg/dL (8.5-10.1) Magnesium Level 2.0 mg/dL (1.8-2.4) Iron Level 90 ug/dL (65-175) Total Iron Binding Capacity 157 ug/dL (250-450) L Iron Saturation 57 % (15-34) H Total Bilirubin 0.4 mg/dL (0.2-1.0) Aspartate Amino Transferase (AST) 37 U/L (15-37) Alanine Aminotransferase (ALT) 82 U/L (16-63) H Alkaline Phosphatase 62 U/L (46-116) Total Protein 6.3 g/dL (6.4-8.2) L Albumin 2.9 g/dL (3.4-5.0) L Albumin/Globulin Ratio 0.9 (1.0-1.7) L Triglycerides Level 118 mg/dL (0-150) Cholesterol Level 214 mg/dL (0-200) H LDL Cholesterol, Calculated 140 mg/dL (0-100) H VLDL Cholesterol, Calculated 23 mg/dL (0-40) Non-HDL Cholesterol Calculated 163 mg/dL (0-129) H HDL Cholesterol 51 mg/dL (40-60) Cholesterol/HDL Ratio 4.0 Vitamin B12 Level 521 pg/mL (247-911) 25-Hydroxy Vitamin D Total 26.8 ng/mL (30-100) L Thyroid Stimulating Hormone (TSH) 1.454 uIU/mL (0.358-3.740) Thyroxine (T4) 5.3 ug/dL (4.5-12.0) Total Triiodothyronine (TT3) 76 ng/dL (71-180) Carbamazepine (Tegretol) Level 4.7 mcg/mL (4.0-12.0) Carbamazepine Last Dose Date 12/22/19 Carbamazepine Last Dose Time 2100 Treponema pallidum Antibody Nonreactive (Nonreactive) Current Medications: Meds: Current Medications Medications (Trade) Dose Ordered Sig/Shavon Route PRN Reason Start Time Stop Time Status Last Admin Dose Admin Amlodipine Besylate (Norvasc) 5 mg DAILY PO 12/23/19 09:00 12/23/19 11:17 DC 12/23/19 09:04 Aspirin (Aspirin Chewable) 81 mg DAILY PO 12/23/19 09:00 12/23/19 09:04 Polyethylene Glycol (miraLAX) 17 gm DAILY PO 12/23/19 09:00 12/23/19 09:03 Multivitamins/ Calcium (Thera-M Plus) 1 tab DAILY PO 12/23/19 09:00 12/23/19 09:03 Amlodipine Besylate (Norvasc) 5 mg 1X ONCE PO 12/23/19 11:30 12/23/19 11:31 DC 12/23/19 14:23 Quetiapine Fumarate (SEROquel) 50 mg QHS PO 12/23/19 21:00 12/23/19 20:24 I have reviewed the current psychotropics carefully including drug interactions. Risk benefit ratio favors no change other than as noted in my dictated progress note. Diagnosis: Problems: (1) Major depressive disorder with psychotic features (2) Cognitive impairment (3) Impulse control disorder (4) Anxiety disorder, unspecified AMELIA PRAJAPATI MD Dec 23, 2019 22:09
--- NOTE | 2019-12-23 22:21 | PN ---
DATE: 12/23/2019 PSYCHIATRIC PROGRESS NOTE This note covers elements not covered in my initial note 12/23/2019. SUBJECTIVE: The patient was also staffed at a treatment team meeting with the entire team including LORENA Puentes and Luzmaria, social service staff. Reviewed history from the family and other observations. The patient slept 7-3/4 hours previous night. He has had a history of repeated falls. CT of head had been done, noncontributory. He remains hard of hearing. Reportedly, two of his sons have committed suicide and further close review of the history raises a question whether there is a family history of bipolar disorder. He complains of some blurred vision, seeing everything as white and we will consult Dr. Gao, Neurology. Blood pressure has been in the 170s. We did check for orthostatic drops given his history of falls and this is not evident. 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 History of alcohol abuse in his brother. REVIEW OF SYSTEMS: Ambulation impaired with walker. No CV, , pulmonary, eye, ENT system symptoms on review. MENTAL STATUS EXAMINATION: The patient was seen individually evening of 12/23/2019 on telehealth rounds. Ambulation impaired. No CV, , pulmonary, eye system symptoms on review. Speech has some latencies. He is quite hard of hearing. Abstraction fair, computation impaired, language function intact, attention span short. Mood and affect somewhat withdrawn. LABORATORY DATA: Reviewed. IMPRESSION: Major depressive disorder, recurrent with psychotic features, rule out bipolar disorder, depressed. Mild cognitive impairment. Rest unchanged. PLAN: Reduce the Seroquel from 100 mg at bedtime down to 50 mg at bedtime given his history of falls and whether this could be contributing to it. Tegretol level is 4.7, on Tegretol 200 b.i.d. for his trigeminal neuralgia. Maintain melatonin and Namenda. Make further adjustments post baseline assessment. AMELIA PRAJAPATI MD DR: ANJELICA/jolanta JOB#: [id number] / [id number]
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
[2019-12-24 01:07] LABS: HEMOGLOBIN A1C 5.2 % (4.8-5.6)
[2019-12-24 05:39] VITALS: BP 170/70
--- NOTE | 2019-12-24 08:45 | NUR ---
ACTIVITY THERAPY ASSESSMENT completed based on notes, observation, and interview. Pt was eating breakfast in his room and was willing to let AT ask questions. Pt was humorous, pleasant, calm, and controlled during time of assessment. Pt likes to travel, write poetry, photography, and sports. Pt needed extra time to process thoughts and at times was unable to recall facts and details. Pt said that he earned a PhD in mechanical engineering. 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 Pt said that he has been reading the newspaper and [employer] isn't a good place to go because kids are getting sick. Pt talked about his and how her father was a good farmer and grazier. Pt said that he was born in [place], [place]. Pt said that he and his mother moved to [place] but his brother stayed behind because it was his senior year and he earned a football scholarship from [employer]. Pt told AT that he was 89 years old and AT asked what year he was born and he said 1931. AT asked the pt if he knew what year it was and he was unable to answer and he apologized and explained that people his age tend to forget. AT asked him if he knew who the president was and he laughed and said a knuckle head and needed some time to come up with Ang's name. AT asked if pt had any children and he said that he has four children. Pt said that he was in the [employer] for two years where they were relocated to [place] where his youngest daughter was born. 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 Pt needed ample time to process and had drifting thoughts. Pt was redirectable with AT. Pt politely said that he wants to leave and go home to his . AT explained she understands it's a hard place to be and we will help him get through it. Pt knew that he was in the hospital and needed some extra time to come up with the name but was able to come up with [facility]. Pt was aware of reason for admission and his memory loss. Pt also spoke about a nerve problem that he has in his face. Initial goal is aimed to increase stress management/relaxation and socialization. Pt will participate in at least three individual or group Activity Therapy session per week.
[2019-12-24] MEDS: DOCUSATE SODIUM 100 MG CAPSULE PO SCH ×2 (09:23→20:07)
[2019-12-24] MEDS: carBAMazepine 200 MG TABLET PO SCH ×2 (09:23→20:07)
[2019-12-24] MEDS: MULTIVITAMIN with MINERAL TABLET. PO SCH (09:23)
[2019-12-24] MEDS: MECLIZINE 12.5 MG TABLET. PO SCH ×3 (09:23→20:07)
[2019-12-24] MEDS: ACETAMINOPHEN 500 MG TABLET PO SCH ×3 (09:23→20:08)
[2019-12-24] MEDS: POLYETHYLENE GLYCOL 3350 17 GM PACKET. PO SCH (09:24)
[2019-12-24] MEDS: amLODIPine BESYLATE 5 MG TABLET PO SCH (09:24)
[2019-12-24] MEDS: ASPIRIN CHEWABLE 81 MG TABLET. PO SCH (09:24)
[2019-12-24] MEDS: MEMANTINE 10 MG TABLET. PO SCH ×2 (09:24→20:07)
--- NOTE | 2019-12-24 10:04 | NUR ---
Patient calm and compliant this morning. Patient reading the bible at this time. Patient has no further needs. Patient eager to go home.
[2019-12-24 16:13] VITALS: BP 165/85
[2019-12-24] MEDS: TAMSULOSIN 0.4 MG CAP.ER.24H. PO SCH (20:07)
[2019-12-24] MEDS: QUEtiapine 100 MG TABLET. PO SCH (20:07)
--- NOTE | 2019-12-24 21:53 | PDOC ---
Exam Note: Kareem Note: Please also refer to the separate dictated note~for this date of service dictated separately.~Patient seen individually. Discussed the patient with Nursing staff reviewed the chart.~Reviewed interim history and current functioning. Reviewed vital signs,~Labs/ Radiology~and current medications noted below. Continue current treatment with the changes noted in the dictated addendum note Assessment: Vital Signs/I&O: Vital Signs Date Time Temp Pulse Resp B/P (MAP) Pulse Ox O2 Delivery O2 Flow Rate FiO2 12/24/19 16:13 98.2 79 17 165/85 (111) 94 Room Air I & O 12/23/19 12/23/19 12/24/19 15:00 23:00 07:00 Intake Total 360 ml 840 ml 120 ml Balance 360 ml 840 ml 120 ml Current Medications: Meds: Current Medications Medications (Trade) Dose Ordered Sig/Shavon Route PRN Reason Start Time Stop Time Status Last Admin Dose Admin Amlodipine Besylate (Norvasc) 10 mg DAILY PO 12/24/19 09:00 12/24/19 09:24 I have reviewed the current psychotropics carefully including drug interactions. Risk benefit ratio favors no change other than as noted in my dictated progress note. Diagnosis: Problems: (1) Impulse control disorder (2) Cognitive impairment (3) Major depressive disorder with psychotic features (4) Anxiety disorder, unspecified AMELIA PRAJAPATI MD Dec 24, 2019 21:53
--- NOTE | 2019-12-24 23:13 | NUR ---
Pt located in his room this evening. Pt calm with flat affect. Resistive with medications but compliant.
[2019-12-25 05:42] VITALS: BP 160/75
[2019-12-25] MEDS: MULTIVITAMIN with MINERAL TABLET. PO SCH (08:29)
[2019-12-25] MEDS: DOCUSATE SODIUM 100 MG CAPSULE PO SCH ×2 (08:29→19:59)
[2019-12-25] MEDS: MECLIZINE 12.5 MG TABLET. PO SCH ×3 (08:29→19:59)
[2019-12-25] MEDS: carBAMazepine 200 MG TABLET PO SCH ×2 (08:29→19:58)
[2019-12-25] MEDS: amLODIPine BESYLATE 5 MG TABLET PO SCH (08:29)
[2019-12-25] MEDS: ACETAMINOPHEN 500 MG TABLET PO SCH ×3 (08:30→19:58)
[2019-12-25] MEDS: POLYETHYLENE GLYCOL 3350 17 GM PACKET. PO SCH (08:30)
[2019-12-25] MEDS: SERTRALINE 25 MG TABLET. PO SCH (08:30)
[2019-12-25] MEDS: ASPIRIN CHEWABLE 81 MG TABLET. PO SCH (08:30)
[2019-12-25] MEDS: MEMANTINE 10 MG TABLET. PO SCH ×2 (08:30→19:58)
--- NOTE | 2019-12-25 09:47 | NUR ---
Patient is enjoying breakfast this morning. Patient calm and cooperative. Patient has no needs at this time.
[2019-12-25 16:08] VITALS: BP 119/65
[2019-12-25] MEDS: TAMSULOSIN 0.4 MG CAP.ER.24H. PO SCH (19:58)
[2019-12-25] MEDS: QUEtiapine 100 MG TABLET. PO SCH (19:59)
--- NOTE | 2019-12-25 21:58 | PDOC ---
Exam Note: Kareem Note: Please also refer to the separate dictated note~for this date of service dictated separately.~Patient seen individually. Discussed the patient with Nursing staff reviewed the chart.~Reviewed interim history and current functioning. Reviewed vital signs,~Labs/ Radiology~and current medications noted below. Continue current treatment with the changes noted in the dictated addendum note Assessment: Vital Signs/I&O: Vital Signs Date Time Temp Pulse Resp B/P (MAP) Pulse Ox O2 Delivery O2 Flow Rate FiO2 12/25/19 19:41 97.4 93 12/25/19 16:08 69 18 119/65 (83) 12/24/19 16:13 Room Air I & O 12/24/19 12/24/19 12/25/19 15:00 23:00 07:00 Intake Total 480 ml 480 ml Balance 480 ml 480 ml Current Medications: Meds: Current Medications Medications (Trade) Dose Ordered Sig/Shavon Route PRN Reason Start Time Stop Time Status Last Admin Dose Admin Sertraline HCl (Zoloft) 25 mg DAILY PO 12/25/19 09:00 12/28/19 20:00 12/25/19 08:30 I have reviewed the current psychotropics carefully including drug interactions. Risk benefit ratio favors no change other than as noted in my dictated progress note. 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
--- NOTE | 2019-12-25 22:21 | NUR ---
Pt has been in his room this evening. Pleasant and compliant with medications and shower.
[2019-12-26 05:45] VITALS: BP 155/79
[2019-12-26] MEDS: POLYETHYLENE GLYCOL 3350 17 GM PACKET. PO SCH (08:41)
[2019-12-26] MEDS: DOCUSATE SODIUM 100 MG CAPSULE PO SCH ×2 (08:42→19:58)
[2019-12-26] MEDS: MEMANTINE 10 MG TABLET. PO SCH ×2 (08:43→19:58)
[2019-12-26] MEDS: MECLIZINE 12.5 MG TABLET. PO SCH ×3 (08:43→19:58)
[2019-12-26] MEDS: ACETAMINOPHEN 500 MG TABLET PO SCH ×3 (08:43→19:59)
[2019-12-26] MEDS: amLODIPine BESYLATE 5 MG TABLET PO SCH (08:43)
[2019-12-26] MEDS: ASPIRIN CHEWABLE 81 MG TABLET. PO SCH (08:43)
[2019-12-26] MEDS: MULTIVITAMIN with MINERAL TABLET. PO SCH (08:43)
[2019-12-26] MEDS: SERTRALINE 25 MG TABLET. PO SCH (08:43)
[2019-12-26] MEDS: carBAMazepine 200 MG TABLET PO SCH ×2 (08:44→19:59)
--- NOTE | 2019-12-26 10:42 | NUR ---
Patient lying in bed calm, repeating sentences over and over. Pt asked RN if she could hear him, RN responded "yes", and patient kept repeating, "Im so glad you can hear me". Pt compliant with medications and assessment. Pt pleasantly confused. Worked with OT and able to follow commands. EFRAIN.
[2019-12-26 16:13] VITALS: BP 163/82
[2019-12-26] MEDS: TAMSULOSIN 0.4 MG CAP.ER.24H. PO SCH (19:58)
[2019-12-26] MEDS: QUEtiapine 100 MG TABLET. PO SCH (19:59)
--- NOTE | 2019-12-26 21:55 | PDOC ---
Exam Note: Kareem Note: Please also refer to the separate dictated note~for this date of service dictated separately.~Patient seen individually. Discussed the patient with Nursing staff reviewed the chart.~Reviewed interim history and current functioning. Reviewed vital signs,~Labs/ Radiology~and current medications noted below. Continue current treatment with the changes noted in the dictated addendum note Assessment: Vital Signs/I&O: Vital Signs Date Time Temp Pulse Resp B/P (MAP) Pulse Ox O2 Delivery O2 Flow Rate FiO2 12/26/19 16:13 97.5 78 18 163/82 (109) 98 12/24/19 16:13 Room Air I & O 12/25/19 12/25/19 12/26/19 15:00 23:00 07:00 Intake Total 600 ml 560 ml Balance 600 ml 560 ml Current Medications: I have reviewed the current psychotropics carefully including drug interactions. Risk benefit ratio favors no change other than as noted in my dictated progress note. 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
--- NOTE | 2019-12-26 23:49 | NUR ---
Pt located in his room all evening lying in bed. Compliant with whole medications. Pleasantly confused.
[2019-12-27 05:50] VITALS: BP 133/73
--- NOTE | 2019-12-27 06:58 | PDOC ---
Exam Note: Kareem Note: This note is a late entry for 12/24/2019 covers elements not covered in my initial note. Subjective: The patient was evaluated face to face in the evening of 12/24/2019 with Fabian CARRILLO. The patient slept 8-1/4 hours previous night. He is pleasant, calm, talking about the Bible, somewhat depressed, anxious. Review of Systems: No CV, , pulmonary, system symptoms on review. He is hard of hearing. Mental Status Exam: Reasonably oriented. Speech is coherent. Abstraction is fair. Computation impaired. Language function is intact. Mood and affect somewhat withdrawn. Laboratory Data: Reviewed. Impression: Major depressive disorder, recurrent. Rule out bipolar disorder, depressed. Mild cognitive impairment. Anxiety disorder unspecified. Impulse control disorder unspecified. Plan: Continue psychotropics from initial note. Namenda 10 mg b.i.d., Tegretol 200 mg b.i.d., melatonin p.r.n., Seroquel 50 mg h.s. Start Zoloft 25 mg a day for 3 days, then 50 mg a day thereafter. Adjust further as clinically indicated. Assessment: Vital Signs/I&O: Vital Signs Date Time Temp Pulse Resp B/P (MAP) Pulse Ox O2 Delivery O2 Flow Rate FiO2 12/27/19 05:50 97.6 64 18 133/73 (93) 97 12/24/19 16:13 Room Air I & O 12/26/19 12/26/19 12/27/19 14:59 22:59 06:59 Intake Total 840 ml 720 ml 120 ml Balance 840 ml 720 ml 120 ml Current Medications: I have reviewed the current psychotropics carefully including drug interactions. Risk benefit ratio favors no change other than as noted in my dictated progress note. 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
--- NOTE | 2019-12-27 07:38 | PDOC ---
Exam Note: Kareem Note: This note is a late entry for 12/25/2019 covers elements not covered in my initial note. Subjective: The patient was evaluated on telehealth rounds in the evening of 12/25/2019 with Miguel Remy RN. Nursing report was with Fabian CARRILLO. He has been calm, spending much time in his room, wandering out at times. Physical therapy evaluation was done. He is standby assist. Review of Systems: No CV, , pulmonary, eye system symptoms on review. Mental Status Exam: Oriented to himself and situation. Speech has some latency, coherent. Abstraction is fair. Computation impaired. Language function is intact. Attention span is short. Mood and affect withdrawn. Laboratory Data: Reviewed. Impression: Major depressive disorder, recurrent. Rule out bipolar disorder, depressed. Mild cognitive impairment. Anxiety disorder unspecified. Impulse control disorder unspecified. Plan: No change from initial note. We will reduce the Seroquel to 50 mg h.s. He remains on Namenda 10 mg b.i.d., Tegretol 200 mg b.i.d., melatonin h.s. p.r.n., Zoloft 25 mg a day increasing on the 12/28 to 50 mg a day. Assessment: Vital Signs/I&O: Vital Signs Date Time Temp Pulse Resp B/P (MAP) Pulse Ox O2 Delivery O2 Flow Rate FiO2 12/27/19 05:50 97.6 64 18 133/73 (93) 97 12/24/19 16:13 Room Air I & O 12/26/19 12/26/19 12/27/19 15:00 23:00 07:00 Intake Total 840 ml 720 ml 120 ml Balance 840 ml 720 ml 120 ml Current Medications: I have reviewed the current psychotropics carefully including drug interactions. Risk benefit ratio favors no change other than as noted in my dictated progress note. 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
[2019-12-27] MEDS: POLYETHYLENE GLYCOL 3350 17 GM PACKET. PO SCH (09:23)
[2019-12-27] MEDS: SERTRALINE 25 MG TABLET. PO SCH (09:24)
[2019-12-27] MEDS: MEMANTINE 10 MG TABLET. PO SCH ×2 (09:24→20:30)
[2019-12-27] MEDS: carBAMazepine 200 MG TABLET PO SCH ×2 (09:24→20:29)
[2019-12-27] MEDS: MULTIVITAMIN with MINERAL TABLET. PO SCH (09:24)
[2019-12-27] MEDS: ASPIRIN CHEWABLE 81 MG TABLET. PO SCH (09:24)
[2019-12-27] MEDS: MECLIZINE 12.5 MG TABLET. PO SCH ×3 (09:24→20:30)
[2019-12-27] MEDS: ACETAMINOPHEN 500 MG TABLET PO SCH ×3 (09:24→20:29)
[2019-12-27] MEDS: amLODIPine BESYLATE 5 MG TABLET PO SCH (09:25)
[2019-12-27] MEDS: DOCUSATE SODIUM 100 MG CAPSULE PO SCH ×2 (09:25→20:29)
--- NOTE | 2019-12-27 12:05 | NUR ---
Patient laying on his bed, hearing aides on his night stand. Patient was unable to take his medications whole, he chewed them and spit them into the water. This nurse crushed the meds and gave them in pudding. Patient was able to take them that way. Patient calm, withdrawn to room. He stated "I need to go home, where my is". Patient speaks very quietly amd oit is difficult to hear him. Patient has had no aggression, no inappropriate behaviors and not agitation this shift.
--- NOTE | 2019-12-27 16:08 | NUR ---
1:1 with Livan to socialize and support. Livan was resting in bed and had enjoyed an ice cream ae earlier as part of the recreational therapy programming. He was alert and while he reported himself to be doing okay, he wishes to return to his care facility where he resides with his . Livan initiates conversation. He has difficulty hearing and misses parts of conversation. His family is considering purchasing quality hearing aids. Livan continues to report that things appear white and he spoke of the "waving" on the ceiling. EMMANUEL will update [facility] to determine d/c location tentatively scheduled for early next week.
[2019-12-27 16:13] VITALS: BP 164/78
[2019-12-27] MEDS: QUEtiapine 100 MG TABLET. PO SCH (20:30)
[2019-12-27] MEDS: TAMSULOSIN 0.4 MG CAP.ER.24H. PO SCH (20:30)
--- NOTE | 2019-12-27 22:05 | PDOC ---
Exam Note: Kareem Note: Please also refer to the separate dictated note~for this date of service dictated separately.~Patient seen individually. Discussed the patient with Nursing staff reviewed the chart.~Reviewed interim history and current functioning. Reviewed vital signs,~Labs/ Radiology~and current medications noted below. Continue current treatment with the changes noted in the dictated addendum note Assessment: Vital Signs/I&O: Vital Signs Date Time Temp Pulse Resp B/P (MAP) Pulse Ox O2 Delivery O2 Flow Rate FiO2 12/27/19 16:13 97.9 72 16 164/78 (106) 96 Room Air I & O 12/26/19 12/26/19 12/27/19 15:00 23:00 07:00 Intake Total 840 ml 720 ml 120 ml Balance 840 ml 720 ml 120 ml Current Medications: I have reviewed the current psychotropics carefully including drug interactions. Risk benefit ratio favors no change other than as noted in my dictated progress note. 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
--- NOTE | 2019-12-27 23:34 | NUR ---
Nursing Note: Location of Patient during Assessment: Pt withdrawn to his room, lying in bed. Behaviors Mood and Affect this shift: Pt calm, cooperative, and pleasant when approached. Medication Compliant: Compliant with medications administered whole. Assessment Compliant: Cooperative and compliant with assessment. Response After Interventions: Pt calm, cooperative, and pleasant.
[2019-12-28 06:37] VITALS: BP 143/75
--- NOTE | 2019-12-28 07:14 | PDOC ---
Exam Note: Kareem Note: This note is a late entry for 12/26/2019 covers elements not covered in my initial note. Subjective: The patient was evaluated face to face in the evening 12/26/2019 with Nghia CARRILLO. He slept 8 hours previous night. He has been sweet and compliant per nursing report. He remains hard of hearing, not aggressive. He tends to repeat himself. Review of Systems: No CV, , pulmonary, eye system symptoms on review. He is hard of hearing. Mental Status Exam: Oriented to himself and situation. Speech has some latency, coherent. Abstraction is fair. Computation impaired. Language function is intact. Attention span is short. Mood and affect withdrawn. Laboratory Data: Reviewed. Impression: Major depressive disorder, recurrent. Rule out bipolar disorder, depressed. Mild cognitive impairment. Anxiety disorder unspecified. Impulse control disorder unspecified. Plan: Continue Seroquel to 50 mg h.s., Namenda 10 mg b.i.d., Tegretol 200 mg b.i.d., Zoloft 25 mg a day increased to 50 mg a day on 12/28. Continue rest unchanged. The Tegretol is for trigeminal neuralgia. Assessment: Vital Signs/I&O: Vital Signs Date Time Temp Pulse Resp B/P (MAP) Pulse Ox O2 Delivery O2 Flow Rate FiO2 12/28/19 06:37 97.6 71 20 143/75 (97) 96 12/27/19 16:13 Room Air I & O 12/27/19 12/27/19 12/28/19 15:00 23:00 07:00 Intake Total 480 ml 360 ml Balance 480 ml 360 ml Current Medications: I have reviewed the current psychotropics carefully including drug interactions. Risk benefit ratio favors no change other than as noted in my dictated progress note. 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
--- NOTE | 2019-12-28 07:26 | PDOC ---
Exam Note: Kareem Note: This note is a late entry for 12/27/2019 covers elements not covered in my initial note. Subjective: The patient was evaluated on telehealth rounds in the evening of 12/27/2019 because of the COVID-19 pandemic restrictions with [facility] nursing aid. Nursing report with Cheryl CARRILLO. He slept 6-3/4 hours previous night. He has been somewhat more agitated. He spits out medications into the water. He talked about feeling that the wall was moving and so was the ceiling, at times noncompliant, but later he seemed a little better. Review of Systems: No CV, , pulmonary system symptoms on review. He is hard of hearing. Mental Status Exam: Oriented to himself and situation. Speech has some latency, coherent. Abstraction is fair. Computation impaired. Language function is intact. Attention span is short. Mood and affect withdrawn. Laboratory Data: Reviewed. Impression: Major depressive disorder, recurrent. Rule out bipolar disorder, depressed. Mild cognitive impairment. Anxiety disorder unspecified. Impulse control disorder unspecified. Plan: No change from initial note. We will keep close observation of his psychotic symptoms and address this as clinically indicated. Assessment: Vital Signs/I&O: Vital Signs Date Time Temp Pulse Resp B/P (MAP) Pulse Ox O2 Delivery O2 Flow Rate FiO2 12/28/19 06:37 97.6 71 20 143/75 (97) 96 12/27/19 16:13 Room Air I & O 12/27/19 12/27/19 12/28/19 15:00 23:00 07:00 Intake Total 480 ml 360 ml Balance 480 ml 360 ml Current Medications: I have reviewed the current psychotropics carefully including drug interactions. Risk benefit ratio favors no change other than as noted in my dictated progress note. 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
[2019-12-28] MEDS: MECLIZINE 12.5 MG TABLET. PO SCH ×3 (08:17→20:59)
[2019-12-28] MEDS: SERTRALINE 25 MG TABLET. PO SCH (08:17)
[2019-12-28] MEDS: ASPIRIN CHEWABLE 81 MG TABLET. PO SCH (08:18)
[2019-12-28] MEDS: MULTIVITAMIN with MINERAL TABLET. PO SCH (08:18)
[2019-12-28] MEDS: carBAMazepine 200 MG TABLET PO SCH ×2 (08:18→20:59)
[2019-12-28] MEDS: amLODIPine BESYLATE 5 MG TABLET PO SCH (08:18)
[2019-12-28] MEDS: ACETAMINOPHEN 500 MG TABLET PO SCH ×3 (08:18→20:59)
[2019-12-28] MEDS: DOCUSATE SODIUM 100 MG CAPSULE PO SCH ×2 (08:18→21:00)
[2019-12-28] MEDS: MEMANTINE 10 MG TABLET. PO SCH ×2 (08:18→21:00)
[2019-12-28] MEDS: POLYETHYLENE GLYCOL 3350 17 GM PACKET. PO SCH (08:19)
--- NOTE | 2019-12-28 11:26 | NUR ---
Update provided to RADHA Macedo at [facility]. Faxed current notes, labs, and medication list for review. Tentative d/c date of early next week, 01/02/20. Remington will discuss with Livan's family and spouse about arranging a face time re-evaluation and time for Livan and Genna () to visit. Remington indicated she will let this worker know if a face time meeting is desired.
--- NOTE | 2019-12-28 16:05 | NUR ---
Patient compliant with medications. He has been calm and pleasant, withdrawn to room most of the day. Patient cooperative with PT and walked in the hallway. No adverse behaviors noted at this time.
[2019-12-28 16:21] VITALS: BP 138/82
[2019-12-28] MEDS: QUEtiapine 100 MG TABLET. PO SCH (20:59)
[2019-12-28] MEDS: TAMSULOSIN 0.4 MG CAP.ER.24H. PO SCH (20:59)
--- NOTE | 2019-12-28 22:02 | PDOC ---
Exam Note: Kareem Note: Please also refer to the separate dictated note~for this date of service dictated separately.~Patient seen individually. Discussed the patient with Nursing staff reviewed the chart.~Reviewed interim history and current functioning. Reviewed vital signs,~Labs/ Radiology~and current medications noted below. Continue current treatment with the changes noted in the dictated addendum note Assessment: Vital Signs/I&O: Vital Signs Date Time Temp Pulse Resp B/P (MAP) Pulse Ox O2 Delivery O2 Flow Rate FiO2 12/28/19 21:47 97.8 98 12/28/19 16:21 70 17 138/82 (100) 12/27/19 16:13 Room Air I & O 12/27/19 12/27/19 12/28/19 15:00 23:00 07:00 Intake Total 480 ml 360 ml Balance 480 ml 360 ml Current Medications: I have reviewed the current psychotropics carefully including drug interactions. Risk benefit ratio favors no change other than as noted in my dictated progress note. 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
--- NOTE | 2019-12-29 00:08 | NUR ---
Nursing Note: Location of Patient during Assessment: Pt withdrawn to room, lying in bed. Behaviors Mood and Affect this shift: Pt with a flat affect, sad, withdrawn but cooperative. Medication Compliant: Pt compliant with medications administered crushed in pudding. Assessment Compliant: Pt cooperative and compliant with assessment. Response After Interventions: Pt remains withdrawn to his room, lying in bed.
[2019-12-29 07:11] VITALS: BP 143/77
[2019-12-29] MEDS ORDERED: SERTRALINE 50 MG TABLET. PO SCH (09:00)
[2019-12-29] MEDS: MEMANTINE 10 MG TABLET. PO SCH ×2 (09:11→21:40)
[2019-12-29] MEDS: amLODIPine BESYLATE 5 MG TABLET PO SCH (09:11)
[2019-12-29] MEDS: MULTIVITAMIN with MINERAL TABLET. PO SCH (09:11)
[2019-12-29] MEDS: DOCUSATE SODIUM 100 MG CAPSULE PO SCH ×2 (09:12→21:41)
[2019-12-29] MEDS: POLYETHYLENE GLYCOL 3350 17 GM PACKET. PO SCH (09:12)
[2019-12-29] MEDS: ASPIRIN CHEWABLE 81 MG TABLET. PO SCH (09:12)
[2019-12-29] MEDS: MECLIZINE 12.5 MG TABLET. PO SCH ×3 (09:12→21:41)
[2019-12-29] MEDS: carBAMazepine 200 MG TABLET PO SCH ×2 (09:12→21:40)
[2019-12-29] MEDS: ACETAMINOPHEN 500 MG TABLET PO SCH ×3 (09:12→21:40)
--- NOTE | 2019-12-29 11:13 | TX PLAN ---
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; Anxiety d/o unspecified; Impulse contrl d/o Reasons for Admission: Aggressive, Agitated, Angry, Combative, Confusion/Disori ented, Poor impulse control Problem in Patient's Words: Per Livan, "My memory is so bad, I had some problems downstairs throwing myself around and yelling." Additional Admission Comments: Per intake record, Livan was verbally aggressive towards femal staff at [facility], sexually inappropriate, resists assistance to transfer, agitated, rapid declining cognition, threatens staff, swatted staff's hands, and bulks up and gets into staff's personal space. Problems Active Problems: impaired memory and safety falls aggressive behaviors at [facility] Inactive Problems: Livan is medication compliant and slept 7.75 hours last night. Pt Strengths/Limitations Ability for [place]: Poor Cognitive Functioning/Ability: Fair Communication Skills/Ability: Fair Financial Resources: Good Insight/Judgement: Fair Intellectual Ability: Good Physical Health: Fair Social Skills: Good Stability in Family: Good Verbal Skills: Fair Discharge Criteria Discharge Criteria: Adequate arrangements @DC, Improved behavior, Improved mood/thought Preliminary Discharge Plan Preliminary DC Plan: Assisted Living, Memory Care Special Precautions Special Precautions: Agitation/Assault Fall Risk: High Initial D/C Plan [facility] vs. memory care, to be determined Identified Discharge Needs: [facility] will re-evaluate once Livan is stable. If they are not able to meet Livan's care needs, Family is checking into [facility] for possible memory care. Out patient psychiatry and counseling support would be benefical if available. Currently Utilized Resources Currently Utilized Resources/P: PCP 24 hour supervision and support provided by [facility] Referrals Community Resources: Psychiatry and counseling if available Identified Problems/Hx/Goals Objectives/Short-Term Goals Short Term Goals: Control abnormal behavior, Dec. Aggression, Dec. Outbursts, Medication Stabilization, Monitor Med Effects Short Term Goals in Patient's: Livan expressed desire to be able to take another trip to [place] with his . Livan reported that his memory is bad. Interventions/Frequency Staff Interventions/Frequency&: Nursing to provide routine checks, medication administration, and adl assistance. Psychaitrist to vist 3-5 times weekly. SW vists twice weekly. Small group activities as Livan desires. 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 Social: Livan has enjoyed traveling, photography, writing poetry, and sports. Education: Livan obtained a doctorate degree in mechanical engineering from [employer] [place]. Community Follow-up PCP psychiatry/counseling support if available Community Provider/Family Inpu: vadim Looney/MATTHEW, will be involved in team meeting via phone on 12/29/19. Treatment Plan Explained Patient/Vocational Case Manager had this treatment plan explained to him/her as indicated by the signature below and has been given the opportunity to ask questions and make suggestions: Date: Patient/Vocational Case Manager Signature: Status Update Update WEEKLY NOTE/UPDATE: Livan is averaging 7.5 hours of sleep at night and 80% of meal intakes. He has been calm and cooperative. Livan spends most of his time in his room but will ambulate in the halls on occasion with a walker. Livan engages with others for conversation. He attended a small group activity on 12/28/19. Nursing reports some difficulty swallowing pills at times so have been crushing pills in pudding. Livan will be started on Wellbutrin XL for depression. Zoloft will be discontinued. Referral has been sent to Adalid at [facility], awaiting outcome. Tentative d/c early next week. vadim Looney/MATTHEW, participated in team meeting on via phone and expressed appreciation for the care that has been provided to Livan. CULLEN METZ Dec 29, 2019 11:13
--- NOTE | 2019-12-29 11:24 | NUR ---
WEEKLY ACTIVITY THERAPY NOTE Date of Admission:12/21 Date of AT Assessment: 12/23 Precipitating behaviors that initiated intake and admission:it was reported that patient has been verbally aggressive, resisting help with transfers, agitation, rapid decline in cognition, threatening staff, swatting at staff and squares up and gets into their personal space. Frequent falls. Goal aimed:increase stress management/relaxation and socialization Initial Goal:Pt will participate in at least three individual or group Activity Therapy session per week. Weekly progress towards goal: achieved, 3/3 with assessment Group participation level: full Weekly highlights: enjoyed banana split on Tuesday 12/26 Behaviors observed: pleasant with staff and peers, appropriate in group setting Plan: no change to goal Beneficial adaptations:
--- NOTE | 2019-12-29 15:54 | NUR ---
1:1 with Livan this afternoon to provide support and socialization. Livan was resting in bed and reported himself to be sad. He went on to share that he misses his and wants to return living with her. Explained to Livan that he was started on a medication for depression today and that he will likely discharge early next week. Discussed some current events in the local newspaper as Livan had it in his room. He indicated that he had gotten up several times today to walk. Encouraged him to continue this for exercise. MATTHEW Looney, was involved in treatment team meeting via phone today, see treatment plan update for details. Attempted to reach RADHA Macedo at [facility], to confirm she received update that was faxed to her on 12/28/19. Adalid had left for the day, SW will attempt to reach again tomorrow.
[2019-12-29 16:35] VITALS: BP 156/77
[2019-12-29] MEDS: QUEtiapine 100 MG TABLET. PO SCH (21:40)
[2019-12-29] MEDS: TAMSULOSIN 0.4 MG CAP.ER.24H. PO SCH (21:40)
--- NOTE | 2019-12-29 22:02 | PDOC ---
Exam Note: Kareem Note: Please also refer to the separate dictated note~for this date of service dictated separately.~Patient seen individually. Discussed the patient with Nursing staff reviewed the chart.~Reviewed interim history and current functioning. Reviewed vital signs,~Labs/ Radiology~and current medications noted below. Continue current treatment with the changes noted in the dictated addendum note Assessment: Vital Signs/I&O: Vital Signs Date Time Temp Pulse Resp B/P (MAP) Pulse Ox O2 Delivery O2 Flow Rate FiO2 12/29/19 16:35 97.8 63 16 156/77 (103) 97 12/27/19 16:13 Room Air I & O 12/28/19 12/28/19 12/29/19 15:00 23:00 07:00 Intake Total 480 ml 360 ml Balance 480 ml 360 ml Current Medications: Meds: Current Medications Medications (Trade) Dose Ordered Sig/Shavon Route PRN Reason Start Time Stop Time Status Last Admin Dose Admin Sertraline HCl (Zoloft) 50 mg DAILY PO 12/29/19 09:00 12/29/19 15:11 DC 12/29/19 09:12 I have reviewed the current psychotropics carefully including drug interactions. Risk benefit ratio favors no change other than as noted in my dictated progress note. 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
--- NOTE | 2019-12-30 04:44 | NUR ---
Nursing Note The patient was calm cooperative and appropriate during interactions, assessment and medication pass. The patient is currently sleeping in his room.
[2019-12-30 06:28] VITALS: BP 172/77
--- NOTE | 2019-12-30 07:02 | PDOC ---
Exam Note: Kareem Note: This note is a late entry for 12/28/2019 covers elements not covered in my initial note. Subjective: The patient was evaluated face to face in the evening of 12/28/2019 with Cheryl CARRILLO. He slept 7-3/4 hours previous night. He remains depressed, withdrawn, otherwise, doing appropriate. I met with him in his room. Review of Systems: No CV, , pulmonary system symptoms on review. He is hard of hearing. Mental Status Exam: Oriented to himself and situation. Speech coherent, has some latency. Abstraction is fair. Computation impaired. Language function is intact. Mood and affect withdrawn. Laboratory Data: Reviewed. Impression: Major depressive disorder, recurrent with psychotic features. Mild cognitive impairment. Anxiety disorder unspecified. Impulse control disorder unspecified. Plan: No change from initial note. Maintain Tegretol. Current dosage level therapeutic at 4.7. Rest unchanged. Assessment: Vital Signs/I&O: Vital Signs Date Time Temp Pulse Resp B/P (MAP) Pulse Ox O2 Delivery O2 Flow Rate FiO2 12/30/19 06:28 97.9 66 16 172/77 (108) 95 12/27/19 16:13 Room Air I & O 0 12/29/19 12/29/19 12/30/19 15:00 23:00 07:00 Intake Total 600 ml 360 ml Balance 600 ml 360 ml Current Medications: Meds: Current Medications Medications (Trade) Dose Ordered Sig/Shavon Route PRN Reason Start Time Stop Time Status Last Admin Dose Admin Sertraline HCl (Zoloft) 50 mg DAILY PO 12/29/19 09:00 12/29/19 15:11 DC 12/29/19 09:12 I have reviewed the current psychotropics carefully including drug interactions. Risk benefit ratio favors no change other than as noted in my dictated progress note. Diagnosis: Problems: (1) Impulse control disorder (2) Cognitive impairment (3) Major depressive disorder with psychotic features (4) Anxiety disorder, unspecified AMELIA PRAJAPATI MD Dec 30, 2019 07:02
[2019-12-30 07:05] LABS: BASO % 1 % (0-3); EOS # 0.2 x10^3/uL (0.0-0.7); EOS % 5 % (0-3); HEMATOCRIT 36.9 % (39.0-53.0); HEMOGLOBIN 12.4 g/dL (13.0-17.5); LYMPH # 1.6 x10^3/uL (1.0-4.8); LYMPH % 38 % (24-48); MEAN CORPUSCULAR HEMOGLOBIN 33 pg (25-35); MEAN CORPUSCULAR HGB CONC 34 g/dL (31-37); MEAN CORPUSCULAR VOLUME 99 fL (79-100); MONO # 0.5 x10^3/uL (0.0-1.1); MONO % 12 % (0-9); NEUT # 1.9 x10^3uL (1.8-7.7); NEUT % 45 % (31-73); PLATELET COUNT 256 x10^3/uL (140-400); RED BLOOD COUNT 3.74 x10^6/uL (4.30-5.70); RED CELL DISTRIBUTION WIDTH 13.4 % (11.5-14.5); WHITE BLOOD COUNT 4.3 x10^3/uL (4.0-11.0)
[2019-12-30 07:23] LABS: ALBUMIN/GLOBULIN RATIO 0.9 (1.0-1.7); CALCIUM 8.4 mg/dL (8.5-10.1); CREATININE 1.1 mg/dL (0.7-1.3); GFR 63.2; TOTAL BILIRUBIN 0.3 mg/dL (0.2-1.0); TOTAL PROTEIN 6.3 g/dL (6.4-8.2)
--- NOTE | 2019-12-30 07:31 | PDOC ---
Exam Note: Kareem Note: This note is a late entry for 12/29/2019 covers elements not covered in my initial note. Subjective: The patient was evaluated face to face in the morning of 12/29/2019 for treatment team meeting with Jose (social service staff), Julia, activity therapy, and Savannah Kruger RN. The patients son Aayush attended the conference as well. He is sleeping 7-1/2 hours at night. Appetite is 100%. We were confirmed that two of the patients children committed suicide, one had diagnosis of bipolar disorder and the daughter had chronic pain which she could not bear ending in her suicide. Review of Systems: No CV, , pulmonary, eye system symptoms on review. He is hard of hearing. Mental Status Exam: Oriented to himself and situation. Speech is coherent. I met with him in his room at length. Abstraction is fair. Computation impaired. Mood and affect depressed. Laboratory Data: Reviewed. Impression: Major depressive disorder, recurrent. Mild cognitive impairment. Hard of hearing. Anxiety disorder unspecified. Plan: Patients son is trying to get an appropriate hearing aid for the patient. We will change his Zoloft to Wellbutrin XL 150 mg in the morning. This may be preferable to the Zoloft given the family history of bipolar disorder/schizoaffective disorder. Continue rest psychotropics unchanged. Assessment: Vital Signs/I&O: Vital Signs Date Time Temp Pulse Resp B/P (MAP) Pulse Ox O2 Delivery O2 Flow Rate FiO2 12/30/19 06:28 97.9 66 16 172/77 (108) 95 12/27/19 16:13 Room Air I & O 12/29/19 12/29/19 12/30/19 15:00 23:00 07:00 Intake Total 600 ml 360 ml Balance 600 ml 360 ml Labs: Laboratory Tests Test 12/30/19 06:53 White Blood Count 4.3 x10^3/uL (4.0-11.0) Red Blood Count 3.74 x10^6/uL (4.30-5.70) L Hemoglobin 12.4 g/dL (13.0-17.5) L Hematocrit 36.9 % (39.0-53.0) L Mean Corpuscular Volume 99 fL (79-100) Mean Corpuscular Hemoglobin 33 pg (25-35) Mean Corpuscular Hemoglobin Concent 34 g/dL (31-37) Red Cell Distribution Width 13.4 % (11.5-14.5) Platelet Count 256 x10^3/uL (140-400) Neutrophils (%) (Auto) 45 % (31-73) Lymphocytes (%) (Auto) 38 % (24-48) Monocytes (%) (Auto) 12 % (0-9) H Eosinophils (%) (Auto) 5 % (0-3) H Basophils (%) (Auto) 1 % (0-3) Neutrophils # (Auto) 1.9 x10^3uL (1.8-7.7) Lymphocytes # (Auto) 1.6 x10^3/uL (1.0-4.8) Monocytes # (Auto) 0.5 x10^3/uL (0.0-1.1) Eosinophils # (Auto) 0.2 x10^3/uL (0.0-0.7) Basophils # (Auto) 0.0 x10^3/uL (0.0-0.2) Current Medications: Meds: Current Medications Medications (Trade) Dose Ordered Sig/Shavon Route PRN Reason Start Time Stop Time Status Last Admin Dose Admin Sertraline HCl (Zoloft) 50 mg DAILY PO 12/29/19 09:00 12/29/19 15:11 DC 12/29/19 09:12 I have reviewed the current psychotropics carefully including drug interactions. Risk benefit ratio favors no change other than as noted in my dictated progress note. Diagnosis: Problems: (1) Impulse control disorder (2) Cognitive impairment (3) Major depressive disorder with psychotic features (4) Anxiety disorder, unspecified AMELIA PRAJAPATI MD Dec 30, 2019 07:31
[2019-12-30] MEDS: MEMANTINE 10 MG TABLET. PO SCH ×4 (08:33→21:28)
[2019-12-30] MEDS: ACETAMINOPHEN 500 MG TABLET PO SCH ×5 (08:34→21:28)
[2019-12-30] MEDS: amLODIPine BESYLATE 5 MG TABLET PO SCH ×3 (08:34→09:17)
[2019-12-30] MEDS: ASPIRIN CHEWABLE 81 MG TABLET. PO SCH ×3 (08:34→09:17)
[2019-12-30] MEDS: MECLIZINE 12.5 MG TABLET. PO SCH ×5 (08:34→21:28)
[2019-12-30] MEDS: POLYETHYLENE GLYCOL 3350 17 GM PACKET. PO SCH (08:35)
[2019-12-30] MEDS: DOCUSATE SODIUM 100 MG CAPSULE PO SCH ×4 (08:35→21:28)
[2019-12-30] MEDS: carBAMazepine 200 MG TABLET PO SCH ×4 (08:35→21:28)
[2019-12-30] MEDS: MULTIVITAMIN with MINERAL TABLET. PO SCH ×3 (08:35→09:17)
[2019-12-30] MEDS: buPROPion XL 150 MG TAB.ER.24H PO SCH ×3 (08:38→09:17)
--- NOTE | 2019-12-30 09:58 | NUR ---
Patient refusing to take meds, RN crushed pills and put in applesauce per report. Pt spit them all out. RN tried again with pill whole, pt covering face with sheet refusing to take them. RN came back a little later to try again and patient still refusing. Pt is pleasantly confused most of the time. Non compliant this morning. WCTM.
--- NOTE | 2019-12-30 12:59 | NUR ---
Call placed to Aayush SANCHEZ) and Adalid ([facility]) to inform that d/c on 01/02/20 is currently on hold awaiting direction from the health department about possible Covid exposure on [facility]. Will update family and facility as SW knows more.
--- NOTE | 2019-12-30 13:40 | NUR ---
Resumed pt care.
[2019-12-30 16:56] VITALS: BP 174/90
[2019-12-30] MEDS: QUEtiapine 100 MG TABLET. PO SCH (21:28)
[2019-12-30] MEDS: TAMSULOSIN 0.4 MG CAP.ER.24H. PO SCH (21:28)
--- NOTE | 2019-12-30 21:56 | PDOC ---
Exam Note: Kareem Note: Please also refer to the separate dictated note~for this date of service dictated separately.~Patient seen individually. Discussed the patient with Nursing staff reviewed the chart.~Reviewed interim history and current functioning. Reviewed vital signs,~Labs/ Radiology~and current medications noted below. Continue current treatment with the changes noted in the dictated addendum note Assessment: Vital Signs/I&O: Vital Signs Date Time Temp Pulse Resp B/P (MAP) Pulse Ox O2 Delivery O2 Flow Rate FiO2 12/30/19 16:56 98.4 67 18 174/90 (118) 94 12/27/19 16:13 Room Air I & O 12/29/19 12/29/19 12/30/19 15:00 23:00 07:00 Intake Total 600 ml 360 ml Balance 600 ml 360 ml Labs: Laboratory Tests Test 12/30/19 06:53 White Blood Count 4.3 x10^3/uL (4.0-11.0) Red Blood Count 3.74 x10^6/uL (4.30-5.70) L Hemoglobin 12.4 g/dL (13.0-17.5) L Hematocrit 36.9 % (39.0-53.0) L Mean Corpuscular Volume 99 fL (79-100) Mean Corpuscular Hemoglobin 33 pg (25-35) Mean Corpuscular Hemoglobin Concent 34 g/dL (31-37) Red Cell Distribution Width 13.4 % (11.5-14.5) Platelet Count 256 x10^3/uL (140-400) Neutrophils (%) (Auto) 45 % (31-73) Lymphocytes (%) (Auto) 38 % (24-48) Monocytes (%) (Auto) 12 % (0-9) H Eosinophils (%) (Auto) 5 % (0-3) H Basophils (%) (Auto) 1 % (0-3) Neutrophils # (Auto) 1.9 x10^3uL (1.8-7.7) Lymphocytes # (Auto) 1.6 x10^3/uL (1.0-4.8) Monocytes # (Auto) 0.5 x10^3/uL (0.0-1.1) Eosinophils # (Auto) 0.2 x10^3/uL (0.0-0.7) Basophils # (Auto) 0.0 x10^3/uL (0.0-0.2) Sodium Level 142 mmol/L (136-145) Potassium Level 4.0 mmol/L (3.5-5.1) Chloride Level 107 mmol/L (98-107) Carbon Dioxide Level 29 mmol/L (21-32) Anion Gap 6 (6-14) Blood Urea Nitrogen 20 mg/dL (8-26) Creatinine 1.1 mg/dL (0.7-1.3) Estimated GFR (Cockcroft-Gault) 63.2 BUN/Creatinine Ratio 18 (6-20) Glucose Level 95 mg/dL (70-99) Calcium Level 8.4 mg/dL (8.5-10.1) L Total Bilirubin 0.3 mg/dL (0.2-1.0) Aspartate Amino Transferase (AST) 12 U/L (15-37) L Alanine Aminotransferase (ALT) 30 U/L (16-63) Alkaline Phosphatase 81 U/L (46-116) Total Protein 6.3 g/dL (6.4-8.2) L Albumin 3.0 g/dL (3.4-5.0) L Albumin/Globulin Ratio 0.9 (1.0-1.7) L Current Medications: I have reviewed the current psychotropics carefully including drug interactions. Risk benefit ratio favors no change other than as noted in my dictated progress note. Diagnosis: Problems: (1) Impulse control disorder (2) Cognitive impairment (3) Major depressive disorder with psychotic features (4) Anxiety disorder, unspecified AMELIA PRAJAPATI MD Dec 30, 2019 21:56
[2019-12-30 22:03] VITALS: BP 160/79
--- NOTE | 2019-12-31 02:40 | NUR ---
Nursing Note The patient was located in his room for his assessment and medication pass. The patient was calm and cooperative with his assessment and medication pass. The patient took his medication in chocolate pudding. The patient is currently sleeping in his room.
[2019-12-31 05:53] VITALS: BP 168/89
[2019-12-31] MEDS: amLODIPine BESYLATE 5 MG TABLET PO SCH (08:42)
[2019-12-31] MEDS: MECLIZINE 12.5 MG TABLET. PO SCH ×3 (08:42→21:16)
[2019-12-31] MEDS: ASPIRIN CHEWABLE 81 MG TABLET. PO SCH (08:42)
[2019-12-31] MEDS: DOCUSATE SODIUM 100 MG CAPSULE PO SCH ×2 (08:42→21:15)
[2019-12-31] MEDS: MEMANTINE 10 MG TABLET. PO SCH ×2 (08:42→21:16)
[2019-12-31] MEDS: buPROPion XL 150 MG TAB.ER.24H PO SCH (08:42)
[2019-12-31] MEDS: ACETAMINOPHEN 500 MG TABLET PO SCH ×3 (08:42→21:16)
[2019-12-31] MEDS: MULTIVITAMIN with MINERAL TABLET. PO SCH (08:42)
[2019-12-31] MEDS: POLYETHYLENE GLYCOL 3350 17 GM PACKET. PO SCH (08:42)
[2019-12-31] MEDS: carBAMazepine 200 MG TABLET PO SCH ×2 (08:42→21:15)
--- NOTE | 2019-12-31 09:50 | NUR ---
Patient is enjoying breakfast this morning. Patient calm and cooperative. Patient has no needs at this time.
[2019-12-31 15:49] VITALS: BP 150/87
[2019-12-31] MEDS: TAMSULOSIN 0.4 MG CAP.ER.24H. PO SCH (21:16)
[2019-12-31] MEDS: QUEtiapine 100 MG TABLET. PO SCH (21:16)
--- NOTE | 2019-12-31 21:55 | PDOC ---
Exam Note: Kareem Note: Please also refer to the separate dictated note~for this date of service dictated separately.~Patient seen individually. Discussed the patient with Nursing staff reviewed the chart.~Reviewed interim history and current functioning. Reviewed vital signs,~Labs/ Radiology~and current medications noted below. Continue current treatment with the changes noted in the dictated addendum note Assessment: Vital Signs/I&O: Vital Signs Date Time Temp Pulse Resp B/P (MAP) Pulse Ox O2 Delivery O2 Flow Rate FiO2 12/31/19 15:49 98.6 69 16 150/87 (108) 96 Room Air I & O 12/30/19 12/30/19 12/31/19 15:00 23:00 07:00 Intake Total 600 ml 360 ml Balance 600 ml 360 ml Current Medications: I have reviewed the current psychotropics carefully including drug interactions. Risk benefit ratio favors no change other than as noted in my dictated progress note. Diagnosis: Problems: (1) Impulse control disorder (2) Cognitive impairment (3) Major depressive disorder with psychotic features (4) Anxiety disorder, unspecified AMELIA PRAJAPATI MD Dec 31, 2019 21:55
--- NOTE | 2019-12-31 23:52 | NUR ---
Nursing Note The patient was located in his room for his assessment and medication pass. the patient was compliant with his medication and took them whole. The patient did state that swallowing his medication whole was painful and was given the option of having his pills crushed but the patient declined stating "that causes a mess in my mouth." The patient is currently sleeping in his room.
[2020-01-01 05:46] VITALS: BP 151/87
[2020-01-01] MEDS: POLYETHYLENE GLYCOL 3350 17 GM PACKET. PO SCH (08:19)
[2020-01-01] MEDS: MECLIZINE 12.5 MG TABLET. PO SCH ×3 (08:19→20:53)
[2020-01-01] MEDS: buPROPion XL 150 MG TAB.ER.24H PO SCH (08:19)
[2020-01-01] MEDS: ACETAMINOPHEN 500 MG TABLET PO SCH ×3 (08:19→20:54)
[2020-01-01] MEDS: carBAMazepine 200 MG TABLET PO SCH ×2 (08:20→20:54)
[2020-01-01] MEDS: MEMANTINE 10 MG TABLET. PO SCH ×2 (08:20→20:54)
[2020-01-01] MEDS: MULTIVITAMIN with MINERAL TABLET. PO SCH (08:20)
[2020-01-01] MEDS: ASPIRIN CHEWABLE 81 MG TABLET. PO SCH (08:20)
[2020-01-01] MEDS: DOCUSATE SODIUM 100 MG CAPSULE PO SCH ×2 (08:20→20:54)
[2020-01-01] MEDS: amLODIPine BESYLATE 5 MG TABLET PO SCH (08:20)
--- NOTE | 2020-01-01 09:29 | NUR ---
Patient is enjoying breakfast this morning. Patient calm and cooperative. Patient has no needs at this time.
[2020-01-01 15:46] VITALS: BP 128/77
[2020-01-01] MEDS: TAMSULOSIN 0.4 MG CAP.ER.24H. PO SCH (20:53)
[2020-01-01] MEDS: QUEtiapine 100 MG TABLET. PO SCH (20:54)
--- NOTE | 2020-01-01 22:00 | PDOC ---
Exam Note: Kareem Note: Please also refer to the separate dictated note~for this date of service dictated separately.~Patient seen individually. Discussed the patient with Nursing staff reviewed the chart.~Reviewed interim history and current functioning. Reviewed vital signs,~Labs/ Radiology~and current medications noted below. Continue current treatment with the changes noted in the dictated addendum note Assessment: Vital Signs/I&O: Vital Signs Date Time Temp Pulse Resp B/P (MAP) Pulse Ox O2 Delivery O2 Flow Rate FiO2 01/01/20 20:56 98.4 93 01/01/20 15:46 67 18 128/77 (94) Room Air I & O 12/31/19 12/31/19 01/01/20 15:00 23:00 07:00 Intake Total 720 ml 360 ml 120 ml Balance 720 ml 360 ml 120 ml Current Medications: I have reviewed the current psychotropics carefully including drug interactions. Risk benefit ratio favors no change other than as noted in my dictated progress note. Diagnosis: Problems: (1) Impulse control disorder (2) Cognitive impairment (3) Major depressive disorder with psychotic features (4) Anxiety disorder, unspecified AMELIA PRAJAPATI MD Jan 01, 2020 22:00
--- NOTE | 2020-01-02 00:59 | NUR ---
Nursing Note The patient was calm and compliant with his medication and assessment. The patient took his medication whole. The patient is currently sleeping in his bed.
[2020-01-02 05:54] VITALS: BP 162/72
--- NOTE | 2020-01-02 06:58 | PDOC ---
Exam Note: Kareem Note: This note is a late entry for 12/30/2019 covers elements not covered in my initial note. Subjective: The patient was evaluated on telehealth rounds in the evening of 12/30/2019 with [facility] nursing aid as one of the patients on the unit has tested positive for COVID-19 and unit is on a lockdown with no admission and discharges. That is the reason I am doing telehealth rounds to minimize any further spread of the infection. Nursing report with Dior CARRILLO. He slept 6- 3/4 hours previous night. He spits out his medications, took it later. He wrapped a blanket around his head like a child at one point. He is anxious, wants to get back to his . Review of Systems: No CV, , pulmonary, eye system symptoms on review. He is hard of hearing. Mental Status Exam: Reasonably oriented. Speech is coherent, has some latency. Abstraction is fair. Computation impaired. Language function intact. Attention span is short. No suicidal or homicidal ideation. Laboratory Data: Reviewed. Impression: Major depressive disorder, recurrent. Mild cognitive impairment. Hard of hearing. Anxiety disorder unspecified. Plan: No change from initial note. Assessment: Vital Signs/I&O: Vital Signs Date Time Temp Pulse Resp B/P (MAP) Pulse Ox O2 Delivery O2 Flow Rate FiO2 01/02/20 05:54 97.5 73 16 162/72 (102) 94 Room Air I & O 01/01/20 01/01/20 01/02/20 15:00 23:00 07:00 Intake Total 600 ml 360 ml Balance 600 ml 360 ml Current Medications: I have reviewed the current psychotropics carefully including drug interactions. Risk benefit ratio favors no change other than as noted in my dictated progress note. Diagnosis: Problems: (1) Impulse control disorder (2) Cognitive impairment (3) Major depressive disorder with psychotic features (4) Anxiety disorder, unspecified AMELIA PRAJAPATI MD Jan 02, 2020 06:58
--- NOTE | 2020-01-02 07:13 | PDOC ---
Exam Note: Kareem Note: This note is a late entry for 12/31/2019 covers elements not covered in my initial note. Subjective: The patient was evaluated on telehealth rounds in the evening of 12/31/2019 with [facility] nursing aid as one of the patients on the unit has tested positive for COVID-19 and unit is on a lockdown with no admission and discharges. That is the reason I am doing telehealth rounds to minimize any further spread of the infection. Nursing report with Fabian CARRILLO. He slept 8 hours previous night. He has been fairly appropriate, not agitated, aggressive, less paranoid. Review of Systems: No CV, , pulmonary, eye system symptoms on review. He is hard of hearing. Mental Status Exam: Reasonably oriented. Speech is coherent, has some latency. Abstraction is fair. Computation impaired. Language function intact. Atte ntion span is short. No suicidal or homicidal ideation. Laboratory Data: Reviewed. Impression: Major depressive disorder, recurrent. Mild cognitive impairment. Hard of hearing. Anxiety disorder unspecified. Plan: Continue rest psychotropics unchanged. Assessment: Vital Signs/I&O: Vital Signs Date Time Temp Pulse Resp B/P (MAP) Pulse Ox O2 Delivery O2 Flow Rate FiO2 01/02/20 05:54 97.5 73 16 162/72 (102) 94 Room Air I & O 01/01/20 01/01/20 01/02/20 15:00 23:00 07:00 Intake Total 600 ml 360 ml Balance 600 ml 360 ml Current Medications: I have reviewed the current psychotropics carefully including drug interactions. Risk benefit ratio favors no change other than as noted in my dictated progress note. Diagnosis: Problems: (1) Impulse control disorder (2) Cognitive impairment (3) Major depressive disorder with psychotic features (4) Anxiety disorder, unspecified AMELIA PRAJAPATI MD Jan 02, 2020 07:13
--- NOTE | 2020-01-02 07:25 | PDOC ---
Exam Note: Kareem Note: This note is a late entry for 01/01/2020 covers elements not covered in my initial note. Subjective: The patient was evaluated on telehealth rounds in the evening of 01/01/2020 with [facility] nursing aid as one of the patients on the unit has tested positive for COVID-19 and unit is on a lockdown with no admission and discharges. That is the reason I am doing telehealth rounds to minimize any further spread of the infection. Nursing report with Fabian CARRILLO. He slept 6 hours previous night. Reportedly he talks about seeing bugs. Review of Systems: No CV, , pulmonary, eye system symptoms on review. He is hard of hearing. Mental Status Exam: He is reasonably oriented. Speech has some latency, coherent. Abstraction is fair. Computation impaired. Language function intact. Attention span is short. Mood and affect withdrawn. No suicidal or homicidal ideation. Laboratory Data: Reviewed. Impression: Major depressive disorder, recurrent. Mild cognitive impairment. Hard of hearing. Anxiety disorder unspecified. Plan: No change from initial note. Assessment: Vital Signs/I&O: Vital Signs Date Time Temp Pulse Resp B/P (MAP) Pulse Ox O2 Delivery O2 Flow Rate FiO2 01/02/20 05:54 97.5 73 16 162/72 (102) 94 Room Air I & O 01/01/20 01/01/20 01/02/20 15:00 23:00 07:00 Intake Total 600 ml 360 ml Balance 600 ml 360 ml Current Medications: I have reviewed the current psychotropics carefully including drug interactions. Risk benefit ratio favors no change other than as noted in my dictated progress note. Diagnosis: Problems: (1) Impulse control disorder (2) Cognitive impairment (3) Major depressive disorder with psychotic features (4) Anxiety disorder, unspecified AMELIA PRAJAPATI MD Jan 02, 2020 07:25
[2020-01-02] MEDS: POLYETHYLENE GLYCOL 3350 17 GM PACKET. PO SCH (08:29)
[2020-01-02] MEDS: MECLIZINE 12.5 MG TABLET. PO SCH ×3 (08:30→20:10)
[2020-01-02] MEDS: ASPIRIN CHEWABLE 81 MG TABLET. PO SCH (08:30)
[2020-01-02] MEDS: buPROPion XL 150 MG TAB.ER.24H PO SCH (08:30)
[2020-01-02] MEDS: carBAMazepine 200 MG TABLET PO SCH ×2 (08:30→20:08)
[2020-01-02] MEDS: MEMANTINE 10 MG TABLET. PO SCH ×2 (08:30→20:09)
[2020-01-02] MEDS: MULTIVITAMIN with MINERAL TABLET. PO SCH (08:30)
[2020-01-02] MEDS: ACETAMINOPHEN 500 MG TABLET PO SCH ×3 (08:30→20:10)
[2020-01-02] MEDS: amLODIPine BESYLATE 5 MG TABLET PO SCH (08:31)
[2020-01-02] MEDS: DOCUSATE SODIUM 100 MG CAPSULE PO SCH ×2 (08:31→20:09)
--- NOTE | 2020-01-02 10:01 | NUR ---
PATIENT LOCATED IN PT ROOM AT TIME OF ASSESSMENT AND MEDICATION ADMINISTRATION. PATIENT IS CONFUSED BUT DOES FOLLOW DIRECTION. PATIENT IS COMPLIANT WITH MEDICATIONS WHOLE WITH WATER. PATIENT IS FORGETFUL AND HAS BEEN WANDERING IN HALLWAY WITHOUT MASK, BUT IS EASILY REFRACTABLE. PATIENT IS RESTING IN BED AT THIS TIME. WILL CONTINUE TO MONITOR.
--- NOTE | 2020-01-02 15:49 | NUR ---
EMMANUEL e-mailed Aayush, son/POA, updates throughout this day, including that Livan's most recent Covid swab was negative and that the [facility] will be on a 14 day quarantine according to health department recommendations. EMMANUEL will update family as needed.
[2020-01-02 16:34] VITALS: BP 147/77
--- NOTE | 2020-01-02 18:15 | NUR ---
[facility] IS D/C TO [address] [place] [address] FOR COVID + RESULT. DR HAYDEN NOTIFIED FAMILY NOTIFIED OF TRANSFER. Addendum: 01/02/20 at 2238 by AMBER FRASER RN Wrong patient, disregard above note.
[2020-01-02] MEDS: QUEtiapine 100 MG TABLET. PO SCH (20:09)
[2020-01-02] MEDS: TAMSULOSIN 0.4 MG CAP.ER.24H. PO SCH (20:09)
--- NOTE | 2020-01-02 22:38 | NUR ---
Nursing Note Pt in room pleasant calm and cooperative. Compliant with meds and assessment.
[2020-01-03 05:59] VITALS: BP 156/89
--- NOTE | 2020-01-03 07:29 | PDOC ---
Exam Note: Kareem Note: This note is a late entry for 01/02/2020 covers elements not covered in my initial note. Subjective: The patient was evaluated on telehealth rounds in the evening on 01/02/2020 due to COVID-19 pandemic on the unit with [facility] nursing aid. Nursing report was with Suzette CARRILLO. The patient is hard of hearing. He remains somewhat withdrawn into his room, otherwise, doing okay. He was quite obsessed, anxious, talking about wanting to be discharged tomorrow as I met with him. Review of Systems: No CV, , pulmonary, eye system symptoms on review. He is hard of hearing. Mental Status Exam: He is reasonably oriented. Speech has some latency, coherent. Abstraction is fair. Computation impaired. Language function intact. Attention span is short. Mood and affect withdrawn. No suicidal or homicidal ideation. Laboratory Data: Reviewed. Impression: Major depressive disorder, recurrent. Mild cognitive impairment. Hard of hearing. Anxiety disorder unspecified. Plan: No change from initial note. Dr. Ovalles will be covering for me during my vacation from 01/03/2020 to 01/09/2020. Assessment: Vital Signs/I&O: Vital Signs Date Time Temp Pulse Resp B/P (MAP) Pulse Ox O2 Delivery O2 Flow Rate FiO2 01/03/20 05:59 97.4 66 18 156/89 (111) 95 01/02/20 05:54 Room Air I & O 01/02/20 01/02/20 01/03/20 15:00 23:00 07:00 Intake Total 600 ml 360 ml Balance 600 ml 360 ml Labs: Laboratory Tests Test 01/02/20 11:50 SARS-CoV-2 Antigen (Rapid) Negative (NEGATIVE) Current Medications: I have reviewed the current psychotropics carefully including drug interactions. Risk benefit ratio favors no change other than as noted in my dictated progress note. Diagnosis: Problems: (1) Impulse control disorder (2) Cognitive impairment (3) Major depressive disorder with psychotic features (4) Anxiety disorder, unspecified AMELIA PRAJAPATI MD Jan 03, 2020 07:29
[2020-01-03] MEDS: POLYETHYLENE GLYCOL 3350 17 GM PACKET. PO SCH (09:38)
[2020-01-03] MEDS: ASPIRIN CHEWABLE 81 MG TABLET. PO SCH (09:43)
[2020-01-03] MEDS: buPROPion XL 150 MG TAB.ER.24H PO SCH (09:43)
[2020-01-03] MEDS: MEMANTINE 10 MG TABLET. PO SCH ×2 (09:43→20:08)
[2020-01-03] MEDS: MECLIZINE 12.5 MG TABLET. PO SCH ×3 (09:43→20:07)
[2020-01-03] MEDS: ACETAMINOPHEN 500 MG TABLET PO SCH ×3 (09:43→20:09)
[2020-01-03] MEDS: DOCUSATE SODIUM 100 MG CAPSULE PO SCH ×2 (09:43→20:07)
[2020-01-03] MEDS: carBAMazepine 200 MG TABLET PO SCH ×2 (09:43→20:07)
[2020-01-03] MEDS: MULTIVITAMIN with MINERAL TABLET. PO SCH (09:44)
[2020-01-03] MEDS: amLODIPine BESYLATE 5 MG TABLET PO SCH (09:44)
--- NOTE | 2020-01-03 12:45 | NUR ---
Nursing note: Pt laying in bed when approached with morning meds and assessment. He was easily aroused, was pleasant, med compliant, and cooperative with assessment. Pt had no complaints this morning. He has remained in bed most of the morning, but has occasionally gotten up to walk around his room. He is currently up eating his lunch. Will continue to monitor.
--- NOTE | 2020-01-03 13:01 | NUR ---
Aayush, son/POA, provided Brendan's supplemental insurance information. Brendan has a [employer] plan of [place] with the policy number of [id number]. Notified registration office who have updated Livan's information.
[2020-01-03 16:14] VITALS: BP 153/78
[2020-01-03] MEDS: QUEtiapine 100 MG TABLET. PO SCH (20:08)
[2020-01-03] MEDS: TAMSULOSIN 0.4 MG CAP.ER.24H. PO SCH (20:08)
--- NOTE | 2020-01-03 21:55 | PN ---
DATE: 01/03/2020 SUBJECTIVE: The patient was evaluated today by tele rounds, discussed with the staff with regard to the patient's progress and behaviors. Also reviewed the chart and his current medications. OBSERVATION: VITAL SIGNS: Temperature 97.1, blood pressure 156/89, pulse 66, respirations 16, O2 sat 95%. GENERAL: Slept about 7 hours last night. MEDICATIONS: The patient's medications are reviewed. Currently on bupropion 150 mg daily, Seroquel 50 mg at night, Namenda 10 mg daily, Tegretol 200 mg b.i.d. LABORATORY DATA: The patient's lab reviewed. The patient's Tegretol level was 4.7. The patient currently not having any side effects to medications. The patient has a significant hearing loss. No falls. The patient has a history of inappropriate sexual behaviors. ASSESSMENT: Major depressive disorder with psychotic features and mild cognitive disorder and generalized anxiety disorder. PLAN: To continue with the current treatment plan. LENGTH OF STAY: 4-5 days. EMA MOSHER MD DR: MAGO/jolanta JOB#: [id number] / [id number]
--- NOTE | 2020-01-03 23:48 | NUR ---
Nursing Note Pt states he is sad, thinks that [facility]. States "They don't want me back, and I'm not sure where I'm going to go." I sat with him and told him to talk to social workers tomorrow. Med compliant and cooperative.
[2020-01-04 06:28] VITALS: BP 180/88
[2020-01-04] MEDS: POLYETHYLENE GLYCOL 3350 17 GM PACKET. PO SCH (08:26)
[2020-01-04] MEDS: buPROPion XL 150 MG TAB.ER.24H PO SCH (08:27)
[2020-01-04] MEDS: DOCUSATE SODIUM 100 MG CAPSULE PO SCH ×2 (08:28→19:39)
[2020-01-04] MEDS: MEMANTINE 10 MG TABLET. PO SCH ×2 (08:28→19:40)
[2020-01-04] MEDS: carBAMazepine 200 MG TABLET PO SCH ×2 (08:28→19:40)
[2020-01-04] MEDS: MULTIVITAMIN with MINERAL TABLET. PO SCH (08:28)
[2020-01-04] MEDS: amLODIPine BESYLATE 5 MG TABLET PO SCH (08:28)
[2020-01-04] MEDS: ASPIRIN CHEWABLE 81 MG TABLET. PO SCH (08:28)
[2020-01-04] MEDS: MECLIZINE 12.5 MG TABLET. PO SCH ×3 (08:28→19:39)
[2020-01-04] MEDS: ACETAMINOPHEN 500 MG TABLET PO SCH ×3 (08:29→19:39)
--- NOTE | 2020-01-04 12:10 | NUR ---
Nursing note: Pt in his room for morning meds and assessment. He was pleasant, med compliant, and cooperative. He had a phone call with his son this morning that went well, he was very happy to speak with his son. Pt has remained in his room this morning reading the newspaper and working on his word search puzzles. He has occasionally gotten out of bed to walk around his room and go to the bathroom. He is currently eating his lunch. Will continue to monitor.
--- NOTE | 2020-01-04 13:32 | NUR ---
1:1 with Livan this afternoon to socialize and support. Livan was resting in bed. He had no concerns or unmet needs and reported himself to be "creaky" referring to an arthritic body. Livan reminisced of his time in [place] before moving to [place] where he met his . He also shared memories of his time residing in [place]. Reassured Livan that once unit had completed quarantine, he would be discharged to return with Genna at [place]. Livan thanked for visit.
[2020-01-04 16:01] VITALS: BP 173/80
[2020-01-04] MEDS: TAMSULOSIN 0.4 MG CAP.ER.24H. PO SCH (19:39)
[2020-01-04] MEDS: QUEtiapine 100 MG TABLET. PO SCH (19:40)
--- NOTE | 2020-01-04 21:51 | PN ---
DATE: 01/04/2020 SUBJECTIVE: The patient was evaluated today by the tele rounds, discussed with the staff, reviewed the current treatment plan. The patient is still confused, withdrawn, minimal interaction. Staff reports no falls. OBSERVATION: VITAL SIGNS: Temperature 97, blood pressure 180/88, pulse 65, respirations 20, O2 sat 97%. GENERAL: Slept about 7 hours last night. The patient's appetite has improved. LABORATORY DATA: The patient's lab reviewed. MEDICATIONS: The patient's current medications include Tegretol 200 mg twice a day, bupropion 150 mg daily, Seroquel 50 mg at night, Namenda 10 mg daily. The patient does not exhibited any inappropriate sexual behavior lately. The patient at times threatening towards staff and difficult to redirect. ASSESSMENT: 1. Major depressive disorder with psychotic features. 2. Mild cognitive disorder. 3. Generalized anxiety disorder. PLAN: To continue with the treatment. LENGTH OF STAY: 5 days. EMA MOSHER MD DR: MAGO/nts JOB#: [id number] / [id number]
--- NOTE | 2020-01-04 23:16 | NUR ---
Nursing Note Pt in good spirits, pleasant and cooperative. No behaviors. In room compliant with meds and assessment.
[2020-01-05 06:35] VITALS: BP 156/78
[2020-01-05] MEDS: DOCUSATE SODIUM 100 MG CAPSULE PO SCH ×2 (08:22→20:00)
[2020-01-05] MEDS: POLYETHYLENE GLYCOL 3350 17 GM PACKET. PO SCH (08:22)
[2020-01-05] MEDS: buPROPion XL 150 MG TAB.ER.24H PO SCH (08:23)
[2020-01-05] MEDS: MEMANTINE 10 MG TABLET. PO SCH ×2 (08:23→20:00)
[2020-01-05] MEDS: MECLIZINE 12.5 MG TABLET. PO SCH ×3 (08:23→20:01)
[2020-01-05] MEDS: ACETAMINOPHEN 500 MG TABLET PO SCH ×3 (08:23→20:00)
[2020-01-05] MEDS: MULTIVITAMIN with MINERAL TABLET. PO SCH (08:23)
[2020-01-05] MEDS: amLODIPine BESYLATE 5 MG TABLET PO SCH (08:23)
[2020-01-05] MEDS: ASPIRIN CHEWABLE 81 MG TABLET. PO SCH (08:24)
[2020-01-05] MEDS: carBAMazepine 200 MG TABLET PO SCH ×2 (08:24→20:00)
--- NOTE | 2020-01-05 11:37 | NUR ---
Nursing note: Pt in his room for AM meds and assessment. He was compliant with meds whole and cooperative with his assessment. He has been sitting in his room looking out the window and working on his word search puzzles. Will continue to monitor.
--- NOTE | 2020-01-05 14:34 | TX PLAN ---
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 Problems Active Problems: impaired memory and safety falls aggressive behaviors at [facility] Inactive Problems: Livan is medication compliant and slept 7.75 hours last night. Pt Strengths/Limitations Ability for [place]: Poor Cognitive Functioning/Ability: Fair Communication Skills/Ability: Fair Financial Resources: Good Insight/Judgement: Fair Intellectual Ability: Good Physical Health: Fair Social Skills: Good Stability in Family: Good Verbal Skills: Fair Discharge Criteria Discharge Criteria: Adequate arrangements @DC, Improved behavior, Improved mood/thought Preliminary Discharge Plan Preliminary DC Plan: Assisted Living, Memory Care Special Precautions Special Precautions: Agitation/Assault Fall Risk: High Initial D/C Plan [facility] vs. memory care, to be determined Identified Discharge Needs: [facility] will re-evaluate once Livan is stable. If they are not able to meet Livan's care needs, Family is checking into [facility] for possible memory care. Out patient psychiatry and counseling support would be benefical if available. Currently Utilized Resources Currently Utilized Resources/P: PCP 24 hour supervision and support provided by [facility] Referrals Community Resources: Psychiatry and counseling if available Identified Problems/Hx/Goals Objectives/Short-Term Goals Short Term Goals: Control abnormal behavior, Dec. Aggression, Dec. Outbursts, Medication Stabilization, Monitor Med Effects Short Term Goals in Patient's: Livan expressed desire to be able to take another trip to [place] with his . Livan reported that his memory is bad. Interventions/Frequency Staff Interventions/Frequency&: Nursing to provide routine checks, medication administration, and adl assistance. Psychaitrist to vist 3-5 times weekly. SW vists twice weekly. Small group activities as Livan desires. 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 Social: Livan has enjoyed traveling, photography, writing poetry, and sports. Education: Livan obtained a doctorate degree in mechanical [place] [employer] [place] Community Follow-up PCP psychiatry/counseling support if available Community Provider/Family Inpu: Aayush, son/CORINEA, will be involved in team meeting via phone on 12/29/19. Treatment Plan Explained Patient/Braider Operator had this treatment plan explained to him/her as indicated by the signature below and has been given the opportunity to ask questions and make suggestions: Date: Patient/Braider Operator Signature: Status Update Update Livan is averaging 7.5 hours of sleep and 80% of meal intakes. He has been pleasant with staff, is compliant with medication administration, and social. Livan can be disorganized at times related to short term memory deficits. Tentative d/c date of 01/16/20 provided quarantine is lifted at that time. EMMANUEL will send fax update to RADHA Medina, at [facility] and call MATTHEW Looney, with an update. CULLEN METZ Jan 05, 2020 14:34
[2020-01-05 15:47] VITALS: BP 131/84
[2020-01-05] MEDS: TAMSULOSIN 0.4 MG CAP.ER.24H. PO SCH (20:00)
[2020-01-05] MEDS: QUEtiapine 100 MG TABLET. PO SCH (20:01)
--- NOTE | 2020-01-05 20:28 | PN ---
DATE: 01/05/2020 SUBJECTIVE: The patient was evaluated today by the telehealth rounds and also participated in the treatment review. Staff reports no major problems. His behavior has improved. No falls. OBSERVATION: VITAL SIGNS: Stable. The patient slept about 8 hours last night. The patient's appetite is fair. MEDICATIONS: The patient's current medications include Tegretol 200 mg b.i.d., bupropion 150 mg daily, Seroquel 50 mg at night, Namenda 10 mg daily. He is not exhibiting any inappropriate behaviors. The patient at times has a tendency to lose control, threatening towards the staff. ASSESSMENT: 1. Major depressive disorder with psychotic features. 2. Mild cognitive disorder. 3. Generalized anxiety disorder. PLAN: To continue with the treatment. The patient was scheduled to be discharged on 01/16/2020 and will be returning to [facility]. EMA MOSHER MD DR: MAGO/jolanta JOB#: [id number] / [id number]
--- NOTE | 2020-01-05 22:42 | NUR ---
Nursing Note: Location of Patient during Assessment: Pt lying in bed, reading at shift change. Behaviors Mood and Affect this shift: Pt calm, pleasant, cooperative, and interactive when approached. Medication Compliant: Compliant with medications administered crushed in pudding. Assessment Compliant: Cooperative and compliant with assessment and cares this evening. Response After Interventions: Pt currently resting in bed with eyes closed.
[2020-01-06 05:01] VITALS: BP 147/79
[2020-01-06] MEDS: ASPIRIN CHEWABLE 81 MG TABLET. PO SCH (08:59)
[2020-01-06] MEDS: MEMANTINE 10 MG TABLET. PO SCH ×2 (08:59→20:02)
[2020-01-06] MEDS: MECLIZINE 12.5 MG TABLET. PO SCH ×3 (08:59→20:02)
[2020-01-06] MEDS: DOCUSATE SODIUM 100 MG CAPSULE PO SCH ×2 (08:59→20:02)
[2020-01-06] MEDS: POLYETHYLENE GLYCOL 3350 17 GM PACKET. PO SCH (08:59)
[2020-01-06] MEDS: MULTIVITAMIN with MINERAL TABLET. PO SCH (09:00)
[2020-01-06] MEDS: carBAMazepine 200 MG TABLET PO SCH ×2 (09:00→20:03)
[2020-01-06] MEDS: ACETAMINOPHEN 500 MG TABLET PO SCH ×3 (09:00→20:03)
[2020-01-06] MEDS: amLODIPine BESYLATE 5 MG TABLET PO SCH (09:00)
[2020-01-06] MEDS: buPROPion XL 150 MG TAB.ER.24H PO SCH (09:00)
--- NOTE | 2020-01-06 09:30 | NUR ---
Covid and rapid done and sent to lab.
--- NOTE | 2020-01-06 10:00 | NUR ---
Faxed current notes, labs, and medication list to RADHA Medina at [facility], for review. Call placed to Adam to confirm she received the faxed information and inform that the tentative discharge date back to [facility] is 01/16/20. Livan will require two negative Covid swabs before returning to [facility]. E-mailed Aayush , son/POA, to update and inform of above plan.
--- NOTE | 2020-01-06 11:19 | NUR ---
Pt is calm, cooperative, and compliant. No agitation, no aggression, no hallucinations, no delusion noted. He is compliant with his medication and assessment.
--- NOTE | 2020-01-06 14:25 | NUR ---
Attempted to see Livan for 1:1 visit this afternoon. He was sleeping soundly and did not awake to SW's knock on his door. Will attempt to see at a later time.
--- NOTE | 2020-01-06 14:39 | NUR ---
While passing afternoon medication pt was having auditory and visual hallucinations AEB pt talking with his son "Prakash" whom only he could see.
[2020-01-06 16:02] VITALS: BP 142/84
--- NOTE | 2020-01-06 17:08 | NUR ---
Pt is confused and disorganized stating he needs to go miner pick his . Pt was unable to be redirected by staff. PRN mona lopez given.
[2020-01-06] MEDS: TAMSULOSIN 0.4 MG CAP.ER.24H. PO SCH (20:03)
[2020-01-06] MEDS: QUEtiapine 100 MG TABLET. PO SCH (20:03)
--- NOTE | 2020-01-06 22:02 | PN ---
DATE: 01/06/2020 SUBJECTIVE: The patient was seen today via telehealth, reviewed the case with nursing staff and also reviewed the chart. Staff reports that he has been talking to himself, apparently he is having both visual and auditory hallucinations, but has not presented with any major behavior problems including being aggressive. OBSERVATION: VITAL SIGNS: Temperature 97.6, blood pressure 147/79, pulse 72, respirations 18, and O2 sat 98%. GENERAL: Slept about 8 hours last night. CURRENT MEDICATIONS: The patient's current medications include Tegretol 200 mg b.i.d., bupropion 150 mg daily, Seroquel 50 mg at night, and Namenda 10 mg daily. The patient is not having any side effects. The patient is still having unpredictable behavior at times, tends to be aggressive, also tends to wander, and also gets agitated easily. The patient's appetite has improved. ASSESSMENT: 1. Major depressive disorder, psychotic features. 2. Mild cognitive disorder. 3. Generalized anxiety disorder. PLAN: To continue with the treatment. The patient's Zyprexa 2.5 mg q.6 hours p.r.n. added. LENGTH OF STAY: 5 days. EMA MOSHER MD DR: MAGO/jolanta JOB#: [id number] / [id number]
--- NOTE | 2020-01-06 23:52 | NUR ---
Nursing Note The patient was located in his room for his assessment and medication pass. The patient was calm and cooperative with his assessment and medication. The patient took his medication whole. The patient was drowsy during interactions and had difficulty answering assessment questions, often parroting back questions to this nurse. The patient is currently sleeping in his room.
[2020-01-07 06:01] VITALS: BP 153/72
[2020-01-07] MEDS: amLODIPine BESYLATE 5 MG TABLET PO SCH (07:50)
[2020-01-07] MEDS: buPROPion XL 150 MG TAB.ER.24H PO SCH (07:50)
[2020-01-07] MEDS: carBAMazepine 200 MG TABLET PO SCH ×2 (07:50→20:19)
[2020-01-07] MEDS: MULTIVITAMIN with MINERAL TABLET. PO SCH (07:50)
[2020-01-07] MEDS: DOCUSATE SODIUM 100 MG CAPSULE PO SCH ×2 (07:50→20:19)
[2020-01-07] MEDS: MECLIZINE 12.5 MG TABLET. PO SCH ×3 (07:50→20:19)
[2020-01-07] MEDS: MEMANTINE 10 MG TABLET. PO SCH ×2 (07:51→20:19)
[2020-01-07] MEDS: ACETAMINOPHEN 500 MG TABLET PO SCH ×3 (07:51→20:19)
[2020-01-07] MEDS: ASPIRIN CHEWABLE 81 MG TABLET. PO SCH (07:51)
[2020-01-07] MEDS: POLYETHYLENE GLYCOL 3350 17 GM PACKET. PO SCH (07:57)
[2020-01-07] MEDS: QUEtiapine 25 MG TABLET. PO SCH ×2 (13:05→17:13)
[2020-01-07 16:12] VITALS: BP 151/78
[2020-01-07] MEDS: TAMSULOSIN 0.4 MG CAP.ER.24H. PO SCH (20:20)
[2020-01-07] MEDS: QUEtiapine 100 MG TABLET. PO SCH (20:20)
[2020-01-07] MEDS: CLINDAMYCIN HCL 150 MG CAPSULE PO SCH (20:21)
--- NOTE | 2020-01-07 22:27 | NUR ---
Pt disorganized and highly irritable this evening. Pt extremely resistive to shower, requiring 2 staff members to coax pt into complying. Pt sarcastic, playing possum and demanding. Pt stating that today is not his shower day, that it is currently the morning and then that he hadn't had dinner. Pt eventually compliant with shower as long as male LOCKSTITCH HEMMER assisted with the shower. Pt later calmed down in the evening and was compliant with crushed medications.
[2020-01-08 03:17] LABS: BACTERIA,URINE 0 /HPF (0-FEW); BILIRUBIN,URINE NEG (NEG); CLARITY,URINE CLEAR; COLOR,URINE YELLOW; GLUCOSE,URINE NEG (NEG); NITRITE,URINE NEG (NEG); RBC,URINE OCC /HPF (0-2); SQUAMOUS EPITHELIAL CELL,UR MOD /LPF; UROBILINOGEN,URINE 0.2 mg/dL (0.2 mg/dL); WBC,URINE OCC /HPF (0-4)
--- NOTE | 2020-01-08 03:21 | NUR ---
Pt has been restless throughout the night. Pt highly disorganized, irritable and non compliant with redirection. Pt attempting to barricade himself in his room with his walker. Pt threw his urinal in his room out of frustration. UA obtained r/t to change in pt's condition. Awaiting results. PRN Zyprexa administered. Will continue to monitor.
[2020-01-08 06:04] VITALS: BP 146/83
[2020-01-08 08:13] LABS: BASO % 1 % (0-3); EOS # 0.2 x10^3/uL (0.0-0.7); EOS % 5 % (0-3); HEMATOCRIT 35.3 % (39.0-53.0); LYMPH # 1.2 x10^3/uL (1.0-4.8); LYMPH % 30 % (24-48); MEAN CORPUSCULAR HEMOGLOBIN 33 pg (25-35); MEAN CORPUSCULAR HGB CONC 34 g/dL (31-37); MEAN CORPUSCULAR VOLUME 98 fL (79-100); MONO # 0.4 x10^3/uL (0.0-1.1); MONO % 10 % (0-9); NEUT # 2.2 x10^3uL (1.8-7.7); NEUT % 55 % (31-73); PLATELET COUNT 187 x10^3/uL (140-400); RED CELL DISTRIBUTION WIDTH 13.5 % (11.5-14.5)
[2020-01-08 08:31] LABS: ALBUMIN 3.2 g/dL (3.4-5.0); CALCIUM 8.6 mg/dL (8.5-10.1); CREATININE 1.1 mg/dL (0.7-1.3); GFR 63.2; POTASSIUM 4.1 mmol/L (3.5-5.1); TOTAL BILIRUBIN 0.2 mg/dL (0.2-1.0); TOTAL PROTEIN 6.3 g/dL (6.4-8.2)
--- NOTE | 2020-01-08 08:44 | PN ---
DATE: 01/07/2020 This is the late entry SUBJECTIVE: The patient was seen by telehealth rounds, met with the staff, chart reviewed and also covering for Dr. Dangelo. The patient continues to be irritable, wilkinson and observed to be talking to himself, probably having both visual and auditory hallucinations. OBJECTIVE: VITAL SIGNS: Temperature 97.6, blood pressure 153/72, pulse 67, respirations 14, O2 sat 94%. GENERAL: Slept about 8 hours last night. The patient's appetite is fair. MEDICATIONS: The patient's current medications include Tegretol 200 mg b.i.d., bupropion 150 mg daily, Seroquel 50 mg at night, and Namenda 10 mg daily. The patient is not having any side effects to medications. ASSESSMENT: 1. Major neurocognitive disorder with psychotic features. 2. Mild cognitive disorder. 3. Generalized anxiety disorder. PLAN: To continue with treatment. Also start on Zyprexa 2.5 mg q.6 hours p.r.n. LENGTH OF STAY: 5-[address] EMA MOSHER MD DR: MAGO/jolanta JOB#: [id number] / [id number]
[2020-01-08] MEDS: DOCUSATE SODIUM 100 MG CAPSULE PO SCH ×2 (08:50→20:18)
[2020-01-08] MEDS: POLYETHYLENE GLYCOL 3350 17 GM PACKET. PO SCH (08:50)
[2020-01-08] MEDS: MECLIZINE 12.5 MG TABLET. PO SCH ×3 (08:50→20:18)
[2020-01-08] MEDS: MEMANTINE 10 MG TABLET. PO SCH ×2 (08:50→20:17)
[2020-01-08] MEDS: ASPIRIN CHEWABLE 81 MG TABLET. PO SCH (08:50)
[2020-01-08] MEDS: QUEtiapine 25 MG TABLET. PO SCH ×2 (08:50→13:06)
[2020-01-08] MEDS: CLINDAMYCIN HCL 150 MG CAPSULE PO SCH ×2 (08:50→20:18)
[2020-01-08] MEDS: carBAMazepine 200 MG TABLET PO SCH ×2 (08:51→20:18)
[2020-01-08] MEDS: amLODIPine BESYLATE 5 MG TABLET PO SCH (08:51)
[2020-01-08] MEDS: buPROPion XL 150 MG TAB.ER.24H PO SCH (08:51)
[2020-01-08] MEDS: ACETAMINOPHEN 500 MG TABLET PO SCH ×3 (08:51→20:17)
[2020-01-08] MEDS: MULTIVITAMIN with MINERAL TABLET. PO SCH (09:00)
[2020-01-08] MEDS: LACTOBACILLUS RHAMNOSUS GG 1 CAPSULE. PO SCH ×2 (09:00→20:17)
--- NOTE | 2020-01-08 11:05 | NUR ---
Pt is calm, cooperative, confused, and compliant. He is fixated and delusional at this time regarding a letter from his , however there is no letter. PRN zyprexa zydis given with breakfast. No agitation, no aggression, no hallucinations noted. He is compliant with his medication crushed in ice cream and his assessment.
--- NOTE | 2020-01-08 12:19 | PN ---
DATE: 01/08/2020 SUBJECTIVE: The patient was evaluated by tele rounds, met with the staff, chart reviewed, and covering for Dr. Dangelo. Staff reports increased confusion, disorganized thinking, constantly focused on his . The patient is compliant with the treatment. He is able to redirect. OBSERVATION: VITAL SIGNS: Temperature 97.9, blood pressure 146/82, pulse 70, respirations 16, O2 sat 94%. GENERAL: Slept about 6 hours last night. LABORATORY DATA: The patient's lab reviewed. MEDICATIONS: The patient's current medications include Tegretol 200 mg b.i.d., bupropion 150 mg daily, Seroquel 50 mg at night and Namenda 10 mg daily. The patient is not having any side effects to medications. ASSESSMENT: 1. Major neurocognitive disorder with psychotic features. 2. Mild cognitive disorder. 3. Generalized anxiety disorder. PLAN: To continue with the treatment. The patient is also on Zyprexa 2.5 mg q.6 hours p.r.n. LENGTH OF STAY: 5-7 days. EMA MOSHER MD DR: MAGO/jolanta JOB#: [id number] / [id number]
[2020-01-08 16:23] VITALS: BP 161/78
[2020-01-08] MEDS: TAMSULOSIN 0.4 MG CAP.ER.24H. PO SCH (20:17)
[2020-01-08] MEDS: QUEtiapine 100 MG TABLET. PO SCH (20:18)
--- NOTE | 2020-01-08 22:42 | NUR ---
Pt calm this evening, lying in bed. Pt states that he feels sad "about being here." Pt refused to elaborate on that statement. When asked if pt knew where "here" was, pt stated [facility]. Pt compliant with crushed medications.
[2020-01-09 05:52] VITALS: BP 168/88
[2020-01-09] MEDS: carBAMazepine 200 MG TABLET PO SCH ×2 (08:55→20:27)
[2020-01-09] MEDS: CLINDAMYCIN HCL 150 MG CAPSULE PO SCH ×2 (08:55→20:28)
[2020-01-09] MEDS: amLODIPine BESYLATE 5 MG TABLET PO SCH (08:56)
[2020-01-09] MEDS: MECLIZINE 12.5 MG TABLET. PO SCH ×3 (08:56→20:27)
[2020-01-09] MEDS: QUEtiapine 25 MG TABLET. PO SCH ×3 (08:56→17:24)
[2020-01-09] MEDS: MULTIVITAMIN with MINERAL TABLET. PO SCH (08:56)
[2020-01-09] MEDS: DOCUSATE SODIUM 100 MG CAPSULE PO SCH ×2 (08:56→20:27)
[2020-01-09] MEDS: ACETAMINOPHEN 500 MG TABLET PO SCH ×3 (08:57→20:28)
[2020-01-09] MEDS: ASPIRIN CHEWABLE 81 MG TABLET. PO SCH (08:57)
[2020-01-09] MEDS: LACTOBACILLUS RHAMNOSUS GG 1 CAPSULE. PO SCH ×2 (08:57→20:28)
[2020-01-09] MEDS: POLYETHYLENE GLYCOL 3350 17 GM PACKET. PO SCH (08:57)
[2020-01-09] MEDS: buPROPion XL 150 MG TAB.ER.24H PO SCH (08:57)
[2020-01-09] MEDS: MEMANTINE 10 MG TABLET. PO SCH ×2 (08:57→20:27)
--- NOTE | 2020-01-09 11:32 | NUR ---
Patient in bed with eyes closed at shift change. Pleasant and cooperative with assessment and cares. Medications given crushed in chocolate pudding. Patient told this nurse to go to [place] to take care of his because his pudding didn't taste very good. No behaviors noted at this time. Will continue to monitor.
[2020-01-09 16:07] VITALS: BP 123/70
--- NOTE | 2020-01-09 19:55 | PN ---
DATE: 01/09/2020 SUBJECTIVE: The patient was seen today on telehealth rounds, met with the staff, chart reviewed. Staff reports he continues to be demanding, confused, constantly asking for his and also wanting to go home. Otherwise, no major behavior problems. OBSERVATION: VITAL SIGNS: Stable. GENERAL: Slept about 7-1/2 hours last night. LABORATORY DATA: The patient's lab reviewed. MEDICATIONS: The patient's current medications include Tegretol 200 mg b.i.d., bupropion 150 mg daily, Seroquel 50 mg at night and Namenda 10 mg daily. The patient denies of any side effects. Staff reports no falls. ASSESSMENT: 1. Major neurocognitive disorder with psychotic features. 2. Mild cognitive disorder. 3. Generalized anxiety disorder. PLAN: To continue with the treatment. The patient is also on Zyprexa 2.5 mg q.6 hours p.r.n. LENGTH OF STAY: 5-[address] EMA MOSHER MD DR: MAGO/jolanta JOB#: [id number] / [id number]
[2020-01-09] MEDS: TAMSULOSIN 0.4 MG CAP.ER.24H. PO SCH (20:27)
[2020-01-09] MEDS: QUEtiapine 100 MG TABLET. PO SCH (20:28)
--- NOTE | 2020-01-09 23:12 | NUR ---
Pt located in [facility] at start of shift. Per day shift, pt had been aggressive toward CHILD LIFE SPECIALIST asking her to fight. Pt had calmed down after shift change and was taken back to his room. When asked why he was in the [facility], pt stated "don't make women mad here." Compliant with crushed medications and shower.
--- NOTE | 2020-01-10 06:05 | NUR ---
Pt extremely irritable and agitated during vital signs this morning. Staff x3 assisted in obtaining vital signs. Unable to obtain accurate blood pressure reading at this time.
[2020-01-10] MEDS: carBAMazepine 200 MG TABLET PO SCH ×2 (08:14→20:27)
[2020-01-10] MEDS: MEMANTINE 10 MG TABLET. PO SCH ×2 (08:14→20:26)
[2020-01-10] MEDS: LACTOBACILLUS RHAMNOSUS GG 1 CAPSULE. PO SCH ×2 (08:14→20:26)
[2020-01-10] MEDS: ASPIRIN CHEWABLE 81 MG TABLET. PO SCH (08:14)
[2020-01-10] MEDS: POLYETHYLENE GLYCOL 3350 17 GM PACKET. PO SCH (08:14)
[2020-01-10] MEDS: buPROPion XL 150 MG TAB.ER.24H PO SCH (08:14)
[2020-01-10] MEDS: DOCUSATE SODIUM 100 MG CAPSULE PO SCH ×2 (08:14→20:26)
[2020-01-10] MEDS: QUEtiapine 25 MG TABLET. PO SCH ×3 (08:15→17:31)
[2020-01-10] MEDS: ACETAMINOPHEN 500 MG TABLET PO SCH ×3 (08:15→20:26)
[2020-01-10] MEDS: MULTIVITAMIN with MINERAL TABLET. PO SCH (08:15)
[2020-01-10] MEDS: CLINDAMYCIN HCL 150 MG CAPSULE PO SCH ×2 (08:16→20:26)
[2020-01-10] MEDS: MECLIZINE 12.5 MG TABLET. PO SCH ×3 (08:16→20:26)
[2020-01-10 08:19] VITALS: BP 170/84
[2020-01-10] MEDS: amLODIPine BESYLATE 5 MG TABLET PO SCH (08:20)
--- NOTE | 2020-01-10 09:40 | NUR ---
Pt awake in bed this morning. Pt irritable and demanding at times. Pt fixated on closing his room door and becomes agitated when staff opens it. Pt has flat affect, is very short with this nurse and refuses to answer assessment questions. Compliant with crushed medications.
[2020-01-10 15:57] VITALS: BP 177/75
[2020-01-10] MEDS: TAMSULOSIN 0.4 MG CAP.ER.24H. PO SCH (20:26)
[2020-01-10] MEDS: QUEtiapine 100 MG TABLET. PO SCH (20:27)
--- NOTE | 2020-01-10 21:03 | NUR ---
Nursing Note: Location of Patient during Assessment: Pt withdrawn to his room, lying in bed. Behaviors Mood and Affect this shift: Pt calm, withdrawn with a flat affect, slightly irritable when approached. Medication Compliant: Compliant with medications administered crushed in pudding. Assessment Compliant: Cooperative and compliant with assessment. Response After Interventions: Pt remains calm and is currently resting quietly in bed with eyes closed.
--- NOTE | 2020-01-10 22:10 | PDOC ---
Exam Note: Kareem Note: Please also refer to the separate dictated note~for this date of service dictated separately.~Patient seen individually. Discussed the patient with Nursing staff reviewed the chart.~Reviewed interim history and current functioning. Reviewed vital signs,~Labs/ Radiology~and current medications noted below. Continue current treatment with the changes noted in the dictated addendum note Assessment: Vital Signs/I&O: Vital Signs Date Time Temp Pulse Resp B/P (MAP) Pulse Ox O2 Delivery O2 Flow Rate FiO2 01/10/20 19:41 97.5 98 01/10/20 15:57 76 18 177/75 (109) 01/07/20 16:12 Room Air I & O 01/09/20 01/09/20 01/10/20 15:00 23:00 07:00 Intake Total 600 ml 480 ml Balance 600 ml 480 ml Current Medications: I have reviewed the current psychotropics carefully including drug interactions. Risk benefit ratio favors no change other than as noted in my dictated progress note. Diagnosis: Problems: (1) Impulse control disorder (2) Cognitive impairment (3) Major depressive disorder with psychotic features (4) Anxiety disorder, unspecified AMELIA PRAJAPATI MD Jan 10, 2020 22:10
[2020-01-11 06:06] VITALS: BP 176/77
[2020-01-11] MEDS: DOCUSATE SODIUM 100 MG CAPSULE PO SCH ×2 (07:50→19:18)
[2020-01-11] MEDS: LACTOBACILLUS RHAMNOSUS GG 1 CAPSULE. PO SCH ×2 (07:50→19:20)
[2020-01-11] MEDS: CLINDAMYCIN HCL 150 MG CAPSULE PO SCH ×2 (07:50→19:20)
[2020-01-11] MEDS: ASPIRIN CHEWABLE 81 MG TABLET. PO SCH (07:50)
[2020-01-11] MEDS: MEMANTINE 10 MG TABLET. PO SCH ×2 (07:51→19:18)
[2020-01-11] MEDS: MECLIZINE 12.5 MG TABLET. PO SCH ×3 (07:51→19:19)
[2020-01-11] MEDS: carBAMazepine 200 MG TABLET PO SCH ×2 (07:51→19:20)
[2020-01-11] MEDS: amLODIPine BESYLATE 5 MG TABLET PO SCH (07:51)
[2020-01-11] MEDS: MULTIVITAMIN with MINERAL TABLET. PO SCH (07:51)
[2020-01-11] MEDS: buPROPion XL 150 MG TAB.ER.24H PO SCH (07:52)
[2020-01-11] MEDS: ACETAMINOPHEN 500 MG TABLET PO SCH ×3 (07:52→19:18)
[2020-01-11] MEDS: POLYETHYLENE GLYCOL 3350 17 GM PACKET. PO SCH (07:52)
[2020-01-11] MEDS: QUEtiapine 25 MG TABLET. PO SCH ×3 (07:52→15:07)
--- NOTE | 2020-01-11 10:17 | PDOC ---
Exam Note: Kareem Note: This note is a late entry for 01/10/2020 covers elements not covered in my initial note. Subjective: The patient was evaluated on telehealth rounds in the evening of 01/10/2020 with [facility] nursing aid. The unit is shut down due to COVID-19 exposure on the unit with no admissions and discharges for now. Dr. Ovalles has covered for me for the past several days since I had been on vacation. Reviewed information with Dr. Ovalles. Per Suzette CARRILLO, he slept 6-1/2 hours previous night. The patient appears somewhat more confused in the evening and somewhat rude at times. Review of Systems: He is hard of hearing. No CV, , pulmonary, eye system symptoms on review. Mental Status Exam: He is reasonably oriented. Speech is coherent. Abstraction is fair. Computation impaired. Language function intact. Mood and affect is somewhat dysphoric. No suicidal ideation. Attention span is short. Laboratory Data: Reviewed. Impression: Major depressive disorder, recurrent. Mild cognitive impairment. Hard of hearing. Anxiety disorder unspecified. Plan: No change from initial note. Assessment: Vital Signs/I&O: Vital Signs Date Time Temp Pulse Resp B/P (MAP) Pulse Ox O2 Delivery O2 Flow Rate FiO2 01/11/20 07:51 70 176/77 01/11/20 06:06 97.7 14 99 01/07/20 16:12 Room Air I & O 01/10/20 01/10/20 01/11/20 15:00 23:00 07:00 Intake Total 720 ml 340 ml Balance 720 ml 340 ml Current Medications: I have reviewed the current psychotropics carefully including drug interactions. Risk benefit ratio favors no change other than as noted in my dictated progress note. Diagnosis: Problems: (1) Impulse control disorder (2) Cognitive impairment (3) Major depressive disorder with psychotic features (4) Anxiety disorder, unspecified AMELIA PRAJAPATI MD Jan 11, 2020 10:17
--- NOTE | 2020-01-11 10:29 | NUR ---
Nursing Note Pt tells me "This is day 1, day 1, day 1, of 6 of 6 of 6 till I get out of this place, just six more days I am counting and today is 1." I said ok, well good morning! Then when I give him his meds he states "I can do them 2 at a a time, 2 at a time, 2 at a time." As he takes them, he counts down from one. "This is 1, of the first group of 2, this is 1 correct?? 1 of the two first pills." He then goes on to do this incrementally with all of his meds second, third, fourth and so on. At the end he has 3 left and states "Well hell, know on number 7 I have to take three. Here goes it!" He swallowed the rest with no more counting. Compliant and cooperative.
[2020-01-11] MEDS ORDERED: QUET25TA PO (14:36)
[2020-01-11] MEDS ORDERED: LACT1CAP19 PO (14:38)
[2020-01-11] MEDS ORDERED: MAG-95 PO (14:39)
[2020-01-11] MEDS ORDERED: OLAN5TAB99 PO (14:40)
[2020-01-11] MEDS ORDERED: BUPR-192 PO (14:41)
[2020-01-11] MEDS ORDERED: METH113C10 TP (14:43)
[2020-01-11] MEDS ORDERED: ACET325T9 PO (14:45)
[2020-01-11 16:04] VITALS: BP 128/69
[2020-01-11] MEDS: TAMSULOSIN 0.4 MG CAP.ER.24H. PO SCH (19:18)
[2020-01-11] MEDS: QUEtiapine 100 MG TABLET. PO SCH (19:19)
--- NOTE | 2020-01-11 20:40 | NUR ---
Pt withdrawn to his room at shift change. Pt calm and pleasant when approached this evening, interactive with staff. Pt cooperative and compliant with assessment and medications administered whole. Pt did not count his pills or talk repetitively in circles this evening as his did on the previous shift.
--- NOTE | 2020-01-11 21:54 | PDOC ---
Exam Note: Kareem Note: Please also refer to the separate dictated note~for this date of service dictated separately.~Patient seen individually. Discussed the patient with Nursing staff reviewed the chart.~Reviewed interim history and current functioning. Reviewed vital signs,~Labs/ Radiology~and current medications noted below. Continue current treatment with the changes noted in the dictated addendum note Assessment: Vital Signs/I&O: Vital Signs Date Time Temp Pulse Resp B/P (MAP) Pulse Ox O2 Delivery O2 Flow Rate FiO2 01/11/20 19:46 97.9 98 01/11/20 16:04 74 18 128/69 (88) 01/07/20 16:12 Room Air I & O 01/10/20 01/10/20 01/11/20 15:00 23:00 07:00 Intake Total 720 ml 340 ml Balance 720 ml 340 ml Current Medications: I have reviewed the current psychotropics carefully including drug interactions. Risk benefit ratio favors no change other than as noted in my dictated progress note. Diagnosis: Problems: (1) Impulse control disorder (2) Cognitive impairment (3) Major depressive disorder with psychotic features (4) Anxiety disorder, unspecified AMELIA PRAJAPATI MD Jan 11, 2020 21:54
[2020-01-12 05:40] VITALS: BP 174/95
[2020-01-12] MEDS: LACTOBACILLUS RHAMNOSUS GG 1 CAPSULE. PO SCH ×2 (07:59→19:31)
[2020-01-12] MEDS: buPROPion XL 150 MG TAB.ER.24H PO SCH (08:05)
[2020-01-12] MEDS: MULTIVITAMIN with MINERAL TABLET. PO SCH (08:05)
[2020-01-12] MEDS: CLINDAMYCIN HCL 150 MG CAPSULE PO SCH ×2 (08:05→19:31)
[2020-01-12] MEDS: MEMANTINE 10 MG TABLET. PO SCH ×2 (08:06→19:31)
[2020-01-12] MEDS: amLODIPine BESYLATE 5 MG TABLET PO SCH (08:06)
[2020-01-12] MEDS: ACETAMINOPHEN 500 MG TABLET PO SCH ×3 (08:06→19:30)
[2020-01-12] MEDS: ASPIRIN CHEWABLE 81 MG TABLET. PO SCH (08:07)
[2020-01-12] MEDS: MECLIZINE 12.5 MG TABLET. PO SCH ×3 (08:07→19:30)
[2020-01-12] MEDS: DOCUSATE SODIUM 100 MG CAPSULE PO SCH ×2 (08:08→19:31)
[2020-01-12] MEDS: carBAMazepine 200 MG TABLET PO SCH ×2 (08:08→19:31)
[2020-01-12] MEDS: QUEtiapine 25 MG TABLET. PO SCH ×3 (08:08→16:14)
[2020-01-12] MEDS: POLYETHYLENE GLYCOL 3350 17 GM PACKET. PO SCH (08:08)
--- NOTE | 2020-01-12 14:44 | NUR ---
Nursing Note Pt continues to count down things. When given his afternoon meds, he counted them 45,46,47,48, then took a drink and then 49. Family pictures to him in the mail, and were delivered, the patient has been intrusive and irritable since then. He keeps bringing the pictures up to the window with the envelope and thinks these are evidence of his discharge papers. Gets angry and belligerent regarding the fact that he isn't discharging today. Demands to have "proof" that he has to stay until Thursday. Redirected and validated his feelings, pt is now resting in bed.
[2020-01-12 16:14] VITALS: BP 125/84
[2020-01-12] MEDS: TAMSULOSIN 0.4 MG CAP.ER.24H. PO SCH (19:30)
[2020-01-12] MEDS: QUEtiapine 100 MG TABLET. PO SCH (19:31)
--- NOTE | 2020-01-12 21:20 | NUR ---
PT withdrawn to room, lying in bed awake at shift change. Pt somewhat irritable this evening but calm when approached for medications and assessment. Pt did count his medications this evening, counting each time he would swallow two pills, such as he would put two pills in his mouth and say "1" then two more pills "2" and so on until finally taking the last two pills and saying "6", "6 is the winning number".
--- NOTE | 2020-01-12 21:51 | PDOC ---
Exam Note: Kareem Note: This note is a late entry for 01/11/2020 covers elements not covered in my initial note. Subjective: The patient was evaluated on telehealth rounds in the evening of 01/11/2020 with Cheryl CARRILLO. The unit is shut down due to COVID-19 exposure on the unit with no admissions and discharges for now. Per Savannah CARRILLO, the patient has been somewhat obsessive, ruminative, repeating six, six that he had six more days to go before he can leave here. Review of Systems: He is hard of hearing. No CV, , pulmonary, eye system symptoms on review. Mental Status Exam: Oriented to himself and situation. Speech has some latency, coherent. Abstraction is fair. Computation impaired. Language function intact. Attention span is short. Mood and affect is withdrawn at times but improved. Laboratory Data: Reviewed. Impression: Major depressive disorder, recurrent. Mild cognitive impairment. Hard of hearing. Anxiety disorder unspecified. Plan: No change from initial note. We will adjust further as clinically indicated. Assessment: Vital Signs/I&O: Vital Signs Date Time Temp Pulse Resp B/P (MAP) Pulse Ox O2 Delivery O2 Flow Rate FiO2 01/12/20 21:49 97.4 95 01/12/20 16:14 63 18 125/84 (98) Room Air I & O 01/11/20 01/11/20 01/12/20 15:00 23:00 07:00 Intake Total 600 ml 600 ml Balance 600 ml 600 ml Current Medications: I have reviewed the current psychotropics carefully including drug interactions. Risk benefit ratio favors no change other than as noted in my dictated progress note. Diagnosis: Problems: (1) Impulse control disorder (2) Cognitive impairment (3) Major depressive disorder with psychotic features (4) Anxiety disorder, unspecified AMELIA PRAJAPATI MD Jan 12, 2020 21:50
--- NOTE | 2020-01-12 21:58 | PDOC ---
Exam Note: Kareem Note: Please also refer to the separate dictated note~for this date of service dictated separately.~Patient seen individually. Discussed the patient with Nursing staff reviewed the chart.~Reviewed interim history and current functioning. Reviewed vital signs,~Labs/ Radiology~and current medications noted below. Continue current treatment with the changes noted in the dictated addendum note Assessment: Vital Signs/I&O: Vital Signs Date Time Temp Pulse Resp B/P (MAP) Pulse Ox O2 Delivery O2 Flow Rate FiO2 01/12/20 21:49 97.4 95 01/12/20 16:14 63 18 125/84 (98) Room Air I & O 01/11/20 01/11/20 01/12/20 15:00 23:00 07:00 Intake Total 600 ml 600 ml Balance 600 ml 600 ml Current Medications: I have reviewed the current psychotropics carefully including drug interactions. Risk benefit ratio favors no change other than as noted in my dictated progress note. 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
[2020-01-13 05:24] VITALS: BP 161/88
[2020-01-13] MEDS: LACTOBACILLUS RHAMNOSUS GG 1 CAPSULE. PO SCH ×2 (07:50→20:17)
[2020-01-13] MEDS: amLODIPine BESYLATE 5 MG TABLET PO SCH (07:50)
[2020-01-13] MEDS: MECLIZINE 12.5 MG TABLET. PO SCH ×3 (07:50→20:17)
[2020-01-13] MEDS: ASPIRIN CHEWABLE 81 MG TABLET. PO SCH (07:50)
[2020-01-13] MEDS: MEMANTINE 10 MG TABLET. PO SCH ×2 (07:50→20:17)
[2020-01-13] MEDS: carBAMazepine 200 MG TABLET PO SCH ×2 (07:50→20:16)
[2020-01-13] MEDS: MULTIVITAMIN with MINERAL TABLET. PO SCH (07:50)
[2020-01-13] MEDS: CLINDAMYCIN HCL 150 MG CAPSULE PO SCH (07:50)
[2020-01-13] MEDS: ACETAMINOPHEN 500 MG TABLET PO SCH ×3 (07:50→20:16)
[2020-01-13] MEDS: POLYETHYLENE GLYCOL 3350 17 GM PACKET. PO SCH (07:51)
[2020-01-13] MEDS: QUEtiapine 25 MG TABLET. PO SCH ×3 (07:51→16:21)
[2020-01-13] MEDS: DOCUSATE SODIUM 100 MG CAPSULE PO SCH ×2 (07:51→20:17)
--- NOTE | 2020-01-13 10:26 | NUR ---
PT IS LOCATED IN PT ROOM AT TIME OF MEDICATION ADMINISTRATION AND ASSESSMENT. PATIENT IS PLEASANT AND COOPERATIVE WITH MEDICAITONS. PATIENT IS RESTING IN ROOM AT THIS TIME. WILL CONTINUE TO MONITOR.
--- NOTE | 2020-01-13 12:24 | NUR ---
[facility] Social Work Discharge Planning Form Patient Name EVELIO BALDERRAMA Admit Date: 12/22/2019 DISCHARGE PLAN Discharge Destination: [facility] Care Assessment: N/A Transportation: Family will provide transport on 01/16/20, Kaylee Argueta will roller picker at 9am. Special Instructions/Notes: Upon return to [facility], arrange for f/u appointments with PCP and facility psychiatrist in 7-10 days. DISCHARGE TO FACILITY Facility: [facility] Address: [address] [place] [address] Contact Name: RADHA Medina PCP: Dr. Cunningham [phone], Psychiatrist: Dr. Dangelo
[2020-01-13 15:37] VITALS: BP 132/63
[2020-01-13] MEDS: TAMSULOSIN 0.4 MG CAP.ER.24H. PO SCH (20:17)
[2020-01-13] MEDS: QUEtiapine 100 MG TABLET. PO SCH (20:17)
--- NOTE | 2020-01-13 22:00 | PDOC ---
Exam Note: Kareem Note: Please also refer to the separate dictated note~for this date of service dictated separately.~Patient seen individually. Discussed the patient with Nursing staff reviewed the chart.~Reviewed interim history and current functioning. Reviewed vital signs,~Labs/ Radiology~and current medications noted below. Continue current treatment with the changes noted in the dictated addendum note Assessment: Vital Signs/I&O: Vital Signs Date Time Temp Pulse Resp B/P (MAP) Pulse Ox O2 Delivery O2 Flow Rate FiO2 01/13/20 21:42 97.8 97 01/13/20 15:37 74 17 132/63 (86) Room Air I & O 01/12/20 01/12/20 01/13/20 15:00 23:00 07:00 Intake Total 840 ml 320 ml Balance 840 ml 320 ml Current Medications: Meds: Current Medications Medications (Trade) Dose Ordered Sig/Shavon Route PRN Reason Start Time Stop Time Status Last Admin Dose Admin Fluvoxamine Maleate (Luvox) 25 mg DAILY PO 01/13/20 09:00 01/13/20 07:52 I have reviewed the current psychotropics carefully including drug interactions. Risk benefit ratio favors no change other than as noted in my dictated progress note. 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
--- NOTE | 2020-01-13 23:15 | NUR ---
Pt resting calmly in bed this evening. Pt irritable when approached, but compliant with medications. Pt did not have any counting episodes this evening. Pt did complain of right mouth pain. Tylenol administered.
--- NOTE | 2020-01-13 23:19 | PDOC ---
Exam Note: Kareem Note: This note is a late entry for 01/12/2020 covers elements not covered in my initial note. Subjective: The patient was evaluated on telehealth rounds in the morning of 01/12/2020 with treatment team meeting with Shawanda (healthcare social worker), Savannah CARRILLO and Jroy nursing aid. The unit is still on a lockdown due to COVID-19 exposure with no admissions and discharges. Per Savannah CARRILLO in the evening, the patient remains somewhat obsessive, anxious. He received some pictures of his children and grandchildren via [employer] and he has been obsessing about this. He was confused stating the pictures that were sent to him indicate that he will be leaving the hospital in the morning. I processed this with him. He was slamming the pictures against the wall, somewhat frustrated that he could not leave to be with his family. Review of Systems: He is hard of hearing. No CV, , pulmonary, eye system symptoms on review. Mental Status Exam: Oriented to himself and situation. Speech has some latency, coherent. Abstraction is fair. Computation impaired. Language function intact. He is somewhat obsessive, ruminative even during individual visits. Attention span is short. Laboratory Data: Reviewed. Impression: Major depressive disorder, recurrent. Mild cognitive impairment. Hard of hearing. Anxiety disorder unspecified. Plan: He will be having COVID screen x2 prior to transition back to assisted living next week. Given the patients obsessiveness, anxiety, some ruminative thinking, we will go ahead and change the Wellbutrin XL 150 mg a day to Luvox 25 mg a day, may need to increase this in due course. Continue rest of the psychotropics unchanged from initial note. Assessment: Vital Signs/I&O: Vital Signs Date Time Temp Pulse Resp B/P (MAP) Pulse Ox O2 Delivery O2 Flow Rate FiO2 01/13/20 21:42 97.8 97 01/13/20 15:37 74 17 132/63 (86) Room Air I & O 01/12/20 01/12/20 01/13/20 15:00 23:00 07:00 Intake Total 840 ml 320 ml Balance 840 ml 320 ml Current Medications: Meds: Current Medications Medications (Trade) Dose Ordered Sig/Shavon Route PRN Reason Start Time Stop Time Status Last Admin Dose Admin Fluvoxamine Maleate (Luvox) 25 mg DAILY PO 01/13/20 09:00 01/13/20 07:52 I have reviewed the current psychotropics carefully including drug interactions. Risk benefit ratio favors no change other than as noted in my dictated progress note. 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
[2020-01-14 05:48] VITALS: BP 159/81
[2020-01-14 07:42] LABS: BASO % 0 % (0-3); EOS # 0.1 x10^3/uL (0.0-0.7); EOS % 1 % (0-3); HEMATOCRIT 38.1 % (39.0-53.0); HEMOGLOBIN 12.7 g/dL (13.0-17.5); LYMPH # 1.4 x10^3/uL (1.0-4.8); LYMPH % 12 % (24-48); MEAN CORPUSCULAR HEMOGLOBIN 33 pg (25-35); MEAN CORPUSCULAR HGB CONC 33 g/dL (31-37); MEAN CORPUSCULAR VOLUME 99 fL (79-100); MONO # 0.8 x10^3/uL (0.0-1.1); MONO % 7 % (0-9); NEUT # 9.4 x10^3uL (1.8-7.7); NEUT % 80 % (31-73); PLATELET COUNT 183 x10^3/uL (140-400); RED BLOOD COUNT 3.84 x10^6/uL (4.30-5.70); RED CELL DISTRIBUTION WIDTH 13.3 % (11.5-14.5); WHITE BLOOD COUNT 11.7 x10^3/uL (4.0-11.0)
[2020-01-14 07:50] LABS: ALBUMIN 3.7 g/dL (3.4-5.0); CALCIUM 8.8 mg/dL (8.5-10.1); CREATININE 1.2 mg/dL (0.7-1.3); GFR 57.1; TOTAL BILIRUBIN 0.6 mg/dL (0.2-1.0); TOTAL PROTEIN 7.3 g/dL (6.4-8.2)
[2020-01-14] MEDS: DOCUSATE SODIUM 100 MG CAPSULE PO SCH ×2 (08:37→20:18)
[2020-01-14] MEDS: amLODIPine BESYLATE 5 MG TABLET PO SCH (08:37)
[2020-01-14] MEDS: MEMANTINE 10 MG TABLET. PO SCH ×2 (08:37→20:15)
[2020-01-14] MEDS: MULTIVITAMIN with MINERAL TABLET. PO SCH (08:37)
[2020-01-14] MEDS: QUEtiapine 25 MG TABLET. PO SCH ×3 (08:37→16:48)
[2020-01-14] MEDS: ACETAMINOPHEN 500 MG TABLET PO SCH ×3 (08:37→20:17)
[2020-01-14] MEDS: carBAMazepine 200 MG TABLET PO SCH ×2 (08:37→20:16)
[2020-01-14] MEDS: ASPIRIN CHEWABLE 81 MG TABLET. PO SCH (08:37)
[2020-01-14] MEDS: LACTOBACILLUS RHAMNOSUS GG 1 CAPSULE. PO SCH ×2 (08:37→20:18)
[2020-01-14] MEDS: POLYETHYLENE GLYCOL 3350 17 GM PACKET. PO SCH (08:38)
[2020-01-14] MEDS: MECLIZINE 12.5 MG TABLET. PO SCH ×3 (08:38→20:18)
--- NOTE | 2020-01-14 09:32 | NUR ---
Patient is enjoying breakfast this morning. Patient calm and cooperative. Patient has no needs at this time.
[2020-01-14 16:01] VITALS: BP 154/70
[2020-01-14] MEDS: TAMSULOSIN 0.4 MG CAP.ER.24H. PO SCH (20:14)
[2020-01-14] MEDS: QUEtiapine 100 MG TABLET. PO SCH (20:16)
--- NOTE | 2020-01-14 21:51 | PDOC ---
Exam Note: Kareem Note: Please also refer to the separate dictated note~for this date of service dictated separately.~Patient seen individually. Discussed the patient with Nursing staff reviewed the chart.~Reviewed interim history and current functioning. Reviewed vital signs,~Labs/ Radiology~and current medications noted below. Continue current treatment with the changes noted in the dictated addendum note Assessment: Vital Signs/I&O: Vital Signs Date Time Temp Pulse Resp B/P (MAP) Pulse Ox O2 Delivery O2 Flow Rate FiO2 01/14/20 16:01 97.9 76 16 154/70 (98) 95 Room Air I & O 01/13/20 01/13/20 01/14/20 15:00 23:00 07:00 Intake Total 476 ml 340 ml Balance 476 ml 340 ml Labs: Laboratory Tests Test 01/14/20 07:20 White Blood Count 11.7 x10^3/uL (4.0-11.0) H Red Blood Count 3.84 x10^6/uL (4.30-5.70) L Hemoglobin 12.7 g/dL (13.0-17.5) L Hematocrit 38.1 % (39.0-53.0) L Mean Corpuscular Volume 99 fL (79-100) Mean Corpuscular Hemoglobin 33 pg (25-35) Mean Corpuscular Hemoglobin Concent 33 g/dL (31-37) Red Cell Distribution Width 13.3 % (11.5-14.5) Platelet Count 183 x10^3/uL (140-400) Neutrophils (%) (Auto) 80 % (31-73) H Lymphocytes (%) (Auto) 12 % (24-48) L Monocytes (%) (Auto) 7 % (0-9) Eosinophils (%) (Auto) 1 % (0-3) Basophils (%) (Auto) 0 % (0-3) Neutrophils # (Auto) 9.4 x10^3uL (1.8-7.7) H Lymphocytes # (Auto) 1.4 x10^3/uL (1.0-4.8) Monocytes # (Auto) 0.8 x10^3/uL (0.0-1.1) Eosinophils # (Auto) 0.1 x10^3/uL (0.0-0.7) Basophils # (Auto) 0.0 x10^3/uL (0.0-0.2) Sodium Level 138 mmol/L (136-145) Potassium Level 4.0 mmol/L (3.5-5.1) Chloride Level 103 mmol/L (98-107) Carbon Dioxide Level 25 mmol/L (21-32) Anion Gap 10 (6-14) Blood Urea Nitrogen 21 mg/dL (8-26) Creatinine 1.2 mg/dL (0.7-1.3) Estimated GFR (Cockcroft-Gault) 57.1 BUN/Creatinine Ratio 18 (6-20) Glucose Level 116 mg/dL (70-99) H Calcium Level 8.8 mg/dL (8.5-10.1) Total Bilirubin 0.6 mg/dL (0.2-1.0) Aspartate Amino Transferase (AST) 18 U/L (15-37) Alanine Aminotransferase (ALT) 26 U/L (16-63) Alkaline Phosphatase 102 U/L (46-116) Total Protein 7.3 g/dL (6.4-8.2) Albumin 3.7 g/dL (3.4-5.0) Albumin/Globulin Ratio 1.0 (1.0-1.7) Current Medications: I have reviewed the current psychotropics carefully including drug interactions. Risk benefit ratio favors no change other than as noted in my dictated progress note. 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
--- NOTE | 2020-01-14 22:00 | NUR ---
Patient is in his room on assumption of care. He is in pleasant spirits. Compliant with assessments and medications crushed in ice cream. No agitation. Denies any pain or discomfort. Patient appears to be sleeping comfortably at present time. Will continue to monitor.
[2020-01-15 06:26] VITALS: BP 158/84
[2020-01-15] MEDS: QUEtiapine 25 MG TABLET. PO SCH ×2 (06:27→17:18)
--- NOTE | 2020-01-15 06:36 | PDOC ---
Exam Note: Kareem Note: This note is a late entry for 01/13/2020 covers elements not covered in my initial note. Subjective: The patient was evaluated on telehealth rounds in the evening of 01/13/2020 with Jory nursing aid. The unit is shut down due to COVID-19 exposure on the unit with no admissions and discharges per Department of Health directives. Per Savannah RN in the evening, the patient slept 7-1/2 hours previous night. He remains somewhat obsessive, repetitive of nos. 46, 47, 48, 49 and then getting into the 100s. He has been ruminating about discharge plans. I addressed this with him. Review of Systems: He is hard of hearing. No CV, , pulmonary, eye system symptoms on review. Mental Status Exam: Oriented to himself and situation. Speech has some latency, coherent. Abstraction is fair. Computation impaired. Language function intact. He is somewhat obsessive, ruminative. Attention span is short. Laboratory Data: Reviewed. Impression: Major depressive disorder, recurrent. Mild cognitive impairment. Hard of hearing. Anxiety disorder unspecified. Plan: Continue rest of the psychotropics unchanged from initial note. Assessment: Vital Signs/I&O: Vital Signs Date Time Temp Pulse Resp B/P (MAP) Pulse Ox O2 Delivery O2 Flow Rate FiO2 01/15/20 06:26 98.2 74 14 158/84 (108) 95 Room Air I & O 01/14/20 01/14/20 01/15/20 14:59 22:59 06:59 Intake Total 600 ml 240 ml 60 ml Balance 600 ml 240 ml 60 ml Labs: Laboratory Tests Test 01/14/20 07:20 White Blood Count 11.7 x10^3/uL (4.0-11.0) H Red Blood Count 3.84 x10^6/uL (4.30-5.70) L Hemoglobin 12.7 g/dL (13.0-17.5) L Hematocrit 38.1 % (39.0-53.0) L Mean Corpuscular Volume 99 fL (79-100) Mean Corpuscular Hemoglobin 33 pg (25-35) Mean Corpuscular Hemoglobin Concent 33 g/dL (31-37) Red Cell Distribution Width 13.3 % (11.5-14.5) Platelet Count 183 x10^3/uL (140-400) Neutrophils (%) (Auto) 80 % (31-73) H Lymphocytes (%) (Auto) 12 % (24-48) L Monocytes (%) (Auto) 7 % (0-9) Eosinophils (%) (Auto) 1 % (0-3) Basophils (%) (Auto) 0 % (0-3) Neutrophils # (Auto) 9.4 x10^3uL (1.8-7.7) H Lymphocytes # (Auto) 1.4 x10^3/uL (1.0-4.8) Monocytes # (Auto) 0.8 x10^3/uL (0.0-1.1) Eosinophils # (Auto) 0.1 x10^3/uL (0.0-0.7) Basophils # (Auto) 0.0 x10^3/uL (0.0-0.2) Sodium Level 138 mmol/L (136-145) Potassium Level 4.0 mmol/L (3.5-5.1) Chloride Level 103 mmol/L (98-107) Carbon Dioxide Level 25 mmol/L (21-32) Anion Gap 10 (6-14) Blood Urea Nitrogen 21 mg/dL (8-26) Creatinine 1.2 mg/dL (0.7-1.3) Estimated GFR (Cockcroft-Gault) 57.1 BUN/Creatinine Ratio 18 (6-20) Glucose Level 116 mg/dL (70-99) H Calcium Level 8.8 mg/dL (8.5-10.1) Total Bilirubin 0.6 mg/dL (0.2-1.0) Aspartate Amino Transferase (AST) 18 U/L (15-37) Alanine Aminotransferase (ALT) 26 U/L (16-63) Alkaline Phosphatase 102 U/L (46-116) Total Protein 7.3 g/dL (6.4-8.2) Albumin 3.7 g/dL (3.4-5.0) Albumin/Globulin Ratio 1.0 (1.0-1.7) Current Medications: Meds: Current Medications Medications (Trade) Dose Ordered Sig/Shavon Route PRN Reason Start Time Stop Time Status Last Admin Dose Admin Quetiapine Fumarate (SEROquel) 12.5 mg BID76 PO 01/15/20 07:00 01/15/20 06:27 I have reviewed the current psychotropics carefully including drug interactions. Risk benefit ratio favors no change other than as noted in my dictated progress note. 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
[2020-01-15 06:41] LABS: BASO % 0 % (0-3); EOS # 0.1 x10^3/uL (0.0-0.7); EOS % 1 % (0-3); HEMATOCRIT 34.6 % (39.0-53.0); HEMOGLOBIN 11.9 g/dL (13.0-17.5); LYMPH # 1.3 x10^3/uL (1.0-4.8); LYMPH % 12 % (24-48); MEAN CORPUSCULAR HEMOGLOBIN 34 pg (25-35); MEAN CORPUSCULAR HGB CONC 34 g/dL (31-37); MEAN CORPUSCULAR VOLUME 98 fL (79-100); MONO % 10 % (0-9); NEUT # 7.8 x10^3uL (1.8-7.7); NEUT % 76 % (31-73); PLATELET COUNT 152 x10^3/uL (140-400); RED BLOOD COUNT 3.55 x10^6/uL (4.30-5.70); RED CELL DISTRIBUTION WIDTH 13.2 % (11.5-14.5); WHITE BLOOD COUNT 10.2 x10^3/uL (4.0-11.0)
--- NOTE | 2020-01-15 06:47 | PDOC ---
Exam Note: Kareem Note: This note is a late entry for 01/14/2020 covers elements not covered in my initial note. Subjective: The patient was evaluated on telehealth rounds in evening of 01/14/2020 with Fabian CARRILOL. The unit is shut down due to COVID-19 exposure on the unit with no admissions and discharges per Department of Health directives. Per Fabian CARRILLO in the evening, the patient slept 6 hours previous night. He has been somewhat flat, withdrawn, depressed, and unsteady on his feet. He is currently on Seroquel 12.5 mg t.i.d. Given his unsteadiness we will reduce to b.i.d. Review of Systems: He is hard of hearing. No CV, , pulmonary, eye system symptoms on review. Mental Status Exam: Oriented to himself and situation. He was somewhat withdrawn today, somewhat obsessive and anxious. Speech has some latency, coherent. Abstraction is fair. Computation impaired. Language function intact. Attention span is short. No suicidal or homicidal ideation. No clear psychotic symptoms. Laboratory Data: Reviewed. Impression: Major depressive disorder, recurrent. Mild cognitive impairment. Hard of hearing. Anxiety disorder unspecified. Plan: No change from initial note but 5 days after he has been on Luvox 25 mg a day, we will increase to 50 mg a day. This note is a late entry for 01/14/2020 covers elements not covered in my in itial note. Assessment: Vital Signs/I&O: Vital Signs Date Time Temp Pulse Resp B/P (MAP) Pulse Ox O2 Delivery O2 Flow Rate FiO2 01/15/20 06:26 98.2 74 14 158/84 (108) 95 Room Air I & O 01/14/20 01/14/20 01/15/20 14:59 22:59 06:59 Intake Total 600 ml 240 ml 60 ml Balance 600 ml 240 ml 60 ml Labs: Laboratory Tests Test 01/14/20 07:20 White Blood Count 11.7 x10^3/uL (4.0-11.0) H Red Blood Count 3.84 x10^6/uL (4.30-5.70) L Hemoglobin 12.7 g/dL (13.0-17.5) L Hematocrit 38.1 % (39.0-53.0) L Mean Corpuscular Volume 99 fL (79-100) Mean Corpuscular Hemoglobin 33 pg (25-35) Mean Corpuscular Hemoglobin Concent 33 g/dL (31-37) Red Cell Distribution Width 13.3 % (11.5-14.5) Platelet Count 183 x10^3/uL (140-400) Neutrophils (%) (Auto) 80 % (31-73) H Lymphocytes (%) (Auto) 12 % (24-48) L Monocytes (%) (Auto) 7 % (0-9) Eosinophils (%) (Auto) 1 % (0-3) Basophils (%) (Auto) 0 % (0-3) Neutrophils # (Auto) 9.4 x10^3uL (1.8-7.7) H Lymphocytes # (Auto) 1.4 x10^3/uL (1.0-4.8) Monocytes # (Auto) 0.8 x10^3/uL (0.0-1.1) Eosinophils # (Auto) 0.1 x10^3/uL (0.0-0.7) Basophils # (Auto) 0.0 x10^3/uL (0.0-0.2) Sodium Level 138 mmol/L (136-145) Potassium Level 4.0 mmol/L (3.5-5.1) Chloride Level 103 mmol/L (98-107) Carbon Dioxide Level 25 mmol/L (21-32) Anion Gap 10 (6-14) Blood Urea Nitrogen 21 mg/dL (8-26) Creatinine 1.2 mg/dL (0.7-1.3) Estimated GFR (Cockcroft-Gault) 57.1 BUN/Creatinine Ratio 18 (6-20) Glucose Level 116 mg/dL (70-99) H Calcium Level 8.8 mg/dL (8.5-10.1) Total Bilirubin 0.6 mg/dL (0.2-1.0) Aspartate Amino Transferase (AST) 18 U/L (15-37) Alanine Aminotransferase (ALT) 26 U/L (16-63) Alkaline Phosphatase 102 U/L (46-116) Total Protein 7.3 g/dL (6.4-8.2) Albumin 3.7 g/dL (3.4-5.0) Albumin/Globulin Ratio 1.0 (1.0-1.7) Current Medications: Meds: Current Medications Medications (Trade) Dose Ordered Sig/Shavon Route PRN Reason Start Time Stop Time Status Last Admin Dose Admin Quetiapine Fumarate (SEROquel) 12.5 mg BID76 PO 01/15/20 07:00 01/15/20 06:27 I have reviewed the current psychotropics carefully including drug interactions. Risk benefit ratio favors no change other than as noted in my dictated progress note. 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
[2020-01-15 06:55] LABS: ALBUMIN 3.1 g/dL (3.4-5.0); ALBUMIN/GLOBULIN RATIO 0.9 (1.0-1.7); CALCIUM 8.4 mg/dL (8.5-10.1); CREATININE 1.1 mg/dL (0.7-1.3); GFR 63.2; POTASSIUM 4.1 mmol/L (3.5-5.1); TOTAL BILIRUBIN 0.6 mg/dL (0.2-1.0); TOTAL PROTEIN 6.6 g/dL (6.4-8.2)
[2020-01-15] MEDS: amLODIPine BESYLATE 5 MG TABLET PO SCH (08:41)
[2020-01-15] MEDS: MULTIVITAMIN with MINERAL TABLET. PO SCH (08:41)
[2020-01-15] MEDS: DOCUSATE SODIUM 100 MG CAPSULE PO SCH ×2 (08:41→20:11)
[2020-01-15] MEDS: ASPIRIN CHEWABLE 81 MG TABLET. PO SCH (08:41)
[2020-01-15] MEDS: MECLIZINE 12.5 MG TABLET. PO SCH ×3 (08:41→20:09)
[2020-01-15] MEDS: MEMANTINE 10 MG TABLET. PO SCH ×2 (08:42→20:11)
[2020-01-15] MEDS: POLYETHYLENE GLYCOL 3350 17 GM PACKET. PO SCH (08:42)
[2020-01-15] MEDS: ACETAMINOPHEN 500 MG TABLET PO SCH ×3 (08:42→20:13)
[2020-01-15] MEDS: carBAMazepine 200 MG TABLET PO SCH ×2 (08:42→20:13)
[2020-01-15] MEDS: LACTOBACILLUS RHAMNOSUS GG 1 CAPSULE. PO SCH ×2 (08:42→20:10)
--- NOTE | 2020-01-15 09:44 | NUR ---
Patient is enjoying breakfast this morning. Patient calm and cooperative. Patient has no needs at this time.
[2020-01-15] MEDS ORDERED: FLUV25TA PO (10:38)
[2020-01-15 16:01] VITALS: BP 136/70
[2020-01-15] MEDS: TAMSULOSIN 0.4 MG CAP.ER.24H. PO SCH (20:10)
[2020-01-15] MEDS: QUEtiapine 100 MG TABLET. PO SCH (20:11)
--- NOTE | 2020-01-15 21:54 | PDOC ---
Exam Note: Kareem Note: Please also refer to the separate dictated note~for this date of service dictated separately.~Patient seen individually. Discussed the patient with Nursing staff reviewed the chart.~Reviewed interim history and current functioning. Reviewed vital signs,~Labs/ Radiology~and current medications noted below. Continue current treatment with the changes noted in the dictated addendum note Assessment: Vital Signs/I&O: Vital Signs Date Time Temp Pulse Resp B/P (MAP) Pulse Ox O2 Delivery O2 Flow Rate FiO2 01/15/20 20:22 98.3 97 01/15/20 16:01 76 18 136/70 (92) 01/15/20 06:26 Room Air I & O 01/14/20 01/14/20 01/15/20 15:00 23:00 07:00 Intake Total 600 ml 240 ml 60 ml Balance 600 ml 240 ml 60 ml Labs: Laboratory Tests Test 01/15/20 06:30 White Blood Count 10.2 x10^3/uL (4.0-11.0) Red Blood Count 3.55 x10^6/uL (4.30-5.70) L Hemoglobin 11.9 g/dL (13.0-17.5) L Hematocrit 34.6 % (39.0-53.0) L Mean Corpuscular Volume 98 fL (79-100) Mean Corpuscular Hemoglobin 34 pg (25-35) Mean Corpuscular Hemoglobin Concent 34 g/dL (31-37) Red Cell Distribution Width 13.2 % (11.5-14.5) Platelet Count 152 x10^3/uL (140-400) Neutrophils (%) (Auto) 76 % (31-73) H Lymphocytes (%) (Auto) 12 % (24-48) L Monocytes (%) (Auto) 10 % (0-9) H Eosinophils (%) (Auto) 1 % (0-3) Basophils (%) (Auto) 0 % (0-3) Neutrophils # (Auto) 7.8 x10^3uL (1.8-7.7) H Lymphocytes # (Auto) 1.3 x10^3/uL (1.0-4.8) Monocytes # (Auto) 1.0 x10^3/uL (0.0-1.1) Eosinophils # (Auto) 0.1 x10^3/uL (0.0-0.7) Basophils # (Auto) 0.0 x10^3/uL (0.0-0.2) Sodium Level 139 mmol/L (136-145) Potassium Level 4.1 mmol/L (3.5-5.1) Chloride Level 105 mmol/L (98-107) Carbon Dioxide Level 27 mmol/L (21-32) Anion Gap 7 (6-14) Blood Urea Nitrogen 20 mg/dL (8-26) Creatinine 1.1 mg/dL (0.7-1.3) Estimated GFR (Cockcroft-Gault) 63.2 BUN/Creatinine Ratio 18 (6-20) Glucose Level 104 mg/dL (70-99) H Calcium Level 8.4 mg/dL (8.5-10.1) L Total Bilirubin 0.6 mg/dL (0.2-1.0) Aspartate Amino Transferase (AST) 15 U/L (15-37) Alanine Aminotransferase (ALT) 23 U/L (16-63) Alkaline Phosphatase 82 U/L (46-116) Total Protein 6.6 g/dL (6.4-8.2) Albumin 3.1 g/dL (3.4-5.0) L Albumin/Globulin Ratio 0.9 (1.0-1.7) L Current Medications: Meds: Current Medications Medications (Trade) Dose Ordered Sig/Shavon Route PRN Reason Start Time Stop Time Status Last Admin Dose Admin Quetiapine Fumarate (SEROquel) 12.5 mg BID76 PO 01/15/20 07:00 01/15/20 17:18 I have reviewed the current psychotropics carefully including drug interactions. Risk benefit ratio favors no change other than as noted in my dictated progress note. 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
[2020-01-16 05:46] VITALS: BP 161/81
[2020-01-16] MEDS: QUEtiapine 25 MG TABLET. PO SCH ×2 (06:20→17:02)
[2020-01-16] MEDS: MULTIVITAMIN with MINERAL TABLET. PO SCH (09:00)
[2020-01-16] MEDS: MECLIZINE 12.5 MG TABLET. PO SCH ×3 (09:24→20:51)
[2020-01-16] MEDS: ASPIRIN CHEWABLE 81 MG TABLET. PO SCH (09:24)
[2020-01-16] MEDS: DOCUSATE SODIUM 100 MG CAPSULE PO SCH ×2 (09:24→20:52)
[2020-01-16] MEDS: POLYETHYLENE GLYCOL 3350 17 GM PACKET. PO SCH (09:24)
[2020-01-16] MEDS: MEMANTINE 10 MG TABLET. PO SCH ×2 (09:25→20:52)
[2020-01-16] MEDS: ACETAMINOPHEN 500 MG TABLET PO SCH ×3 (09:25→20:52)
[2020-01-16] MEDS: carBAMazepine 200 MG TABLET PO SCH ×2 (09:25→20:52)
[2020-01-16] MEDS: LACTOBACILLUS RHAMNOSUS GG 1 CAPSULE. PO SCH (09:25)
[2020-01-16] MEDS: amLODIPine BESYLATE 5 MG TABLET PO SCH (09:25)
--- NOTE | 2020-01-16 11:22 | NUR ---
Pt is confused and disorganized but redirectable. No aggression. Pt ask questions to staff such as "why didn't they go all the way up?" He is compliant with his medication crushed in ice cream.
--- NOTE | 2020-01-16 14:32 | NUR ---
Brendan's discharge is on hold at this time pending direction from the health department. Call placed to MATTHEW Looney, to inform and message left for Kaylee (who had intended to provide transport for Livan darryl). Chuckie will update family once additional direction is received from the health department.
[2020-01-16 18:37] VITALS: BP 169/86
[2020-01-16] MEDS: TAMSULOSIN 0.4 MG CAP.ER.24H. PO SCH (20:52)
[2020-01-16] MEDS: QUEtiapine 100 MG TABLET. PO SCH (20:52)
--- NOTE | 2020-01-16 22:00 | NUR ---
PT in restroom at beginning of assessment without walker. PT brought his walker and encouraged to use. PT used walker appropriately afterwards. Assessment completed in room while PT sitting on side of bed. PT calm and compliant with assessment and medications administration. Medications administered crushed in ice cream with an Equal packet added in.
--- NOTE | 2020-01-16 22:15 | PDOC ---
Exam Note: Kareem Note: Please also refer to the separate dictated note~for this date of service dictated separately.~Patient seen individually. Discussed the patient with Nursing staff reviewed the chart.~Reviewed interim history and current functioning. Reviewed vital signs,~Labs/ Radiology~and current medications noted below. Continue current treatment with the changes noted in the dictated addendum note Assessment: Vital Signs/I&O: Vital Signs Date Time Temp Pulse Resp B/P (MAP) Pulse Ox O2 Delivery O2 Flow Rate FiO2 01/16/20 21:29 98.2 95 01/16/20 18:37 58 18 169/86 (113) 01/15/20 06:26 Room Air I & O 01/15/20 01/15/20 01/16/20 15:00 23:00 07:00 Intake Total 200 ml 560 ml Balance 200 ml 560 ml Current Medications: I have reviewed the current psychotropics carefully including drug interactions. Risk benefit ratio favors no change other than as noted in my dictated progress note. 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
[2020-01-17 05:09] LABS: BACTERIA,URINE MANY /HPF (0-FEW); BILIRUBIN,URINE NEG (NEG); CLARITY,URINE HAZY; COLOR,URINE YELLOW; GLUCOSE,URINE NEG (NEG); NITRITE,URINE POS (NEG); SQUAMOUS EPITHELIAL CELL,UR OCC /LPF; UROBILINOGEN,URINE 0.2 mg/dL (0.2 mg/dL); WBC,URINE >40 /HPF (0-4)
[2020-01-17 05:45] VITALS: BP 138/71
[2020-01-17] MEDS: QUEtiapine 25 MG TABLET. PO SCH ×2 (06:25→17:14)
[2020-01-17] MEDS: POLYETHYLENE GLYCOL 3350 17 GM PACKET. PO SCH (09:01)
[2020-01-17] MEDS: ASPIRIN CHEWABLE 81 MG TABLET. PO SCH (09:03)
[2020-01-17] MEDS: DOCUSATE SODIUM 100 MG CAPSULE PO SCH ×2 (09:03→20:12)
[2020-01-17] MEDS: carBAMazepine 200 MG TABLET PO SCH ×2 (09:03→20:12)
[2020-01-17] MEDS: ACETAMINOPHEN 500 MG TABLET PO SCH ×3 (09:03→20:13)
[2020-01-17] MEDS: MECLIZINE 12.5 MG TABLET. PO SCH ×3 (09:03→20:13)
[2020-01-17] MEDS: amLODIPine BESYLATE 5 MG TABLET PO SCH (09:03)
[2020-01-17] MEDS: MEMANTINE 10 MG TABLET. PO SCH ×2 (09:03→20:11)
--- NOTE | 2020-01-17 11:44 | NUR ---
Nursing note: Pt in his room for morning meds and assessment. He was initially resistive with his meds, when they were poured into his mouth, he took them out and was putting the pills on his gown. When this nurse attempted to take the pills off his gown and put back in the pill cup, pt swatted at my hands. Pt was allowed more time and eventually began putting the pills back into his mouth one at a time as he counted each one. Pt then swallowed all of them at once with his juice. He is currently in bed and reading the newspaper. Will continue to monitor.
--- NOTE | 2020-01-17 13:23 | NUR ---
EMMANUEL e-mailed Aayush (MATTHEW) and Handy (RADHA at [facility]) to update on health department recommendation to swab staff this date. If staff results are negative, SB can proceed with discharging patients. EMMANUEL will update family and facility accordingly.
[2020-01-17 15:36] VITALS: BP 151/76
[2020-01-17] MEDS: QUEtiapine 100 MG TABLET. PO SCH (20:12)
[2020-01-17] MEDS: TAMSULOSIN 0.4 MG CAP.ER.24H. PO SCH (20:12)
--- NOTE | 2020-01-17 21:56 | PDOC ---
Exam Note: Kareem Note: Please also refer to the separate dictated note~for this date of service dictated separately.~Patient seen individually. Discussed the patient with Nursing staff reviewed the chart.~Reviewed interim history and current functioning. Reviewed vital signs,~Labs/ Radiology~and current medications noted below. Continue current treatment with the changes noted in the dictated addendum note Assessment: Vital Signs/I&O: Vital Signs Date Time Temp Pulse Resp B/P (MAP) Pulse Ox O2 Delivery O2 Flow Rate FiO2 01/17/20 19:56 98.8 95 01/17/20 15:36 73 18 151/76 (101) Room Air I & O 01/16/20 01/16/20 01/17/20 15:00 23:00 07:00 Intake Total 554 ml 120 ml Balance 554 ml 120 ml Labs: Laboratory Tests Test 01/17/20 04:50 Urine Collection Type Unknown Urine Color Yellow Urine Clarity Hazy Urine pH 5.5 Urine Specific [place] 1.025 Urine Protein 30 mg/dl (NEG-TRACE) Urine Glucose (UA) Neg mg/dL (NEG) Urine Ketones (Stick) Neg mg/dL (NEG) Urine Blood Mod (NEG) Urine Nitrite Pos (NEG) Urine Bilirubin Neg (NEG) Urine Urobilinogen Dipstick 0.2 mg/dL (0.2 mg/dL) Urine Leukocyte Esterase Trace (NEG) Urine RBC 1-2 /HPF (0-2) Urine WBC >40 /HPF (0-4) Urine Squamous Epithelial Cells Occ /LPF Urine Bacteria Many /HPF (0-FEW) Current Medications: I have reviewed the current psychotropics carefully including drug interactions. Risk benefit ratio favors no change other than as noted in my dictated progress note. 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
--- NOTE | 2020-01-17 22:35 | NUR ---
Pt laying in his bed this evening. Pleasant and disorganized. Compliant with crushed medications.
[2020-01-18 05:45] VITALS: BP 151/79
[2020-01-18] MEDS: POLYETHYLENE GLYCOL 3350 17 GM PACKET. PO SCH (08:31)
[2020-01-18] MEDS: carBAMazepine 200 MG TABLET PO SCH ×2 (08:33→20:14)
[2020-01-18] MEDS: DOCUSATE SODIUM 100 MG CAPSULE PO SCH ×2 (08:33→20:14)
[2020-01-18] MEDS: QUEtiapine 25 MG TABLET. PO SCH ×2 (08:33→17:05)
[2020-01-18] MEDS: MECLIZINE 12.5 MG TABLET. PO SCH ×4 (08:34→20:13)
[2020-01-18] MEDS: amLODIPine BESYLATE 5 MG TABLET PO SCH (08:34)
[2020-01-18] MEDS: ACETAMINOPHEN 500 MG TABLET PO SCH ×4 (08:34→20:15)
[2020-01-18] MEDS: ASPIRIN CHEWABLE 81 MG TABLET. PO SCH (08:34)
[2020-01-18] MEDS: MEMANTINE 10 MG TABLET. PO SCH ×2 (08:35→20:14)
--- NOTE | 2020-01-18 11:16 | NUR ---
Nursing note: Pt in sitting in his bed reading the newspaper when approached for morning med pass. Meds were attempted to be given crushed in chocolate pudding, but pt flicked the spoon away. When given education on taking his meds, pt was accepting. Pudding with meds was attempted to be given again, but pt grabbed this nurse's arm on knocked the pudding onto the floor. Pt was given some time and appeared to be in a better mood. Meds were pulled again and pt was compliant in taking all of them whole. He has been laying in bed reading the newspaper for most of the morning. Will continue to monitor.
--- NOTE | 2020-01-18 11:39 | PDOC ---
Exam Note: Kareem Note: This note is a late entry for 01/15/2020 covers elements not covered in my initial note. Subjective: The patient was evaluated on telehealth rounds in the evening of 01/15/2020 due to COVID-19 restrictions on the unit with no admissions and discharges. Per Fabian RN in the evening, the patient slept 6 hours previous night. He appeared somewhat more confused at night, not able to sit up during the day and during meals. Review of Systems: He is hard of hearing. No CV, , pulmonary, eye system symptoms on review. Mental Status Exam: Oriented to himself and situation. Speech has some latency, coherent. Abstraction is fair. Computation impaired. Language function intact. Attention span is short. No suicidal or homicidal ideation. No clear psychotic symptoms. Laboratory Data: Reviewed. Today showed WBC increased from 4.0 to 11 and now down to 10.2. Impression: Major depressive disorder, recurrent. Mild cognitive impairment. Hard of hearing. Anxiety disorder unspecified. Plan: No change from initial note. We will check for UTI which should not be partly responsible for his confusion. Assessment: Vital Signs/I&O: Vital Signs Date Time Temp Pulse Resp B/P (MAP) Pulse Ox O2 Delivery O2 Flow Rate FiO2 01/18/20 08:34 73 151/79 01/18/20 05:45 99.3 16 94 01/17/20 15:36 Room Air I & O 01/17/20 01/17/20 01/18/20 15:00 23:00 07:00 Intake Total 600 ml 540 ml Balance 600 ml 540 ml Current Medications: Meds: Current Medications Medications (Trade) Dose Ordered Sig/Shavon Route PRN Reason Start Time Stop Time Status Last Admin Dose Admin Quetiapine Fumarate (SEROquel) 12.5 mg BIDWMEALS PO 01/18/20 08:00 01/18/20 08:33 I have reviewed the current psychotropics carefully including drug interactions. Risk benefit ratio favors no change other than as noted in my dictated progress note. Diagnosis: Problems: (1) Impulse control disorder (2) Cognitive impairment (3) Major depressive disorder with psychotic features (4) Anxiety disorder, unspecified AMELIA PRAJAPATI MD Jan 18, 2020 11:39
--- NOTE | 2020-01-18 11:47 | PDOC ---
Exam Note: Kareem Note: This note is a late entry for 01/16/2020 covers elements not covered in my initial note. Subjective: The patient was reviewed on telehealth rounds in the evening of 01/16/2020 with Cori CARRILLO due to COVID-19 restrictions on the unit with no admissions and discharges. The patient slept 9-1/2 hours previous night. At night he was combative with cares. We will check UA to make sure he does not have UTI on account of his agitation. Review of Systems: He is hard of hearing. No CV, , pulmonary, eye system symptoms on review. Mental Status Exam: Oriented to himself and situation. Speech has some latency, coherent. Abstraction is fair. Computation impaired. Language function intact. Attention span is short. No suicidal or homicidal ideation. No clear psychotic symptoms. Laboratory Data: Reviewed. Impression: Major depressive disorder, recurrent. Mild cognitive impairment. Hard of hearing. Anxiety disorder unspecified. Plan: No change from initial note. Assessment: Vital Signs/I&O: Vital Signs Date Time Temp Pulse Resp B/P (MAP) Pulse Ox O2 Delivery O2 Flow Rate FiO2 01/18/20 08:34 73 151/79 01/18/20 05:45 99.3 16 94 01/17/20 15:36 Room Air I & O 01/17/20 01/17/20 01/18/20 15:00 23:00 07:00 Intake Total 600 ml 540 ml Balance 600 ml 540 ml Current Medications: Meds: Current Medications Medications (Trade) Dose Ordered Sig/Shavon Route PRN Reason Start Time Stop Time Status Last Admin Dose Admin Quetiapine Fumarate (SEROquel) 12.5 mg BIDWMEALS PO 01/18/20 08:00 01/18/20 08:33 I have reviewed the current psychotropics carefully including drug interactions. Risk benefit ratio favors no change other than as noted in my dictated progress note. Diagnosis: Problems: (1) Impulse control disorder (2) Cognitive impairment (3) Major depressive disorder with psychotic features (4) Anxiety disorder, unspecified AMELIA PRAJAPATI MD Jan 18, 2020 11:47
--- NOTE | 2020-01-18 11:55 | PDOC ---
Exam Note: Kareem Note: This note is a late entry for 01/17/2020 covers elements not covered in my initial note. Subjective: The patient was reviewed on telehealth rounds in the evening of 01/17/2020 with Genesis CARRILLO due to COVID-19 restrictions on the unit with no admissions and discharges. Per Genesis CARRILLO in the evening, the patient slept 7 hours previous night. Urine C&S has reflex to C&S. He does seem to have UTI which could explain his confusion, intermittent irritability and resistiveness to cares. He is swinging at nursing staff at times, redirected. Review of Systems: He is hard of hearing. No CV, , pulmonary, eye system symptoms on review. Mental Status Exam: Oriented to himself and situation. Speech is coherent, has some latency. Abstraction is fair. Computation impaired. Language function intact. Attention span is short. No suicidal or homicidal ideation. No clear psychotic symptoms. Laboratory Data: Reviewed. Impression: Major depressive disorder, recurrent. Mild cognitive impairment. Hard of hearing. Anxiety disorder unspecified. Plan: No change from initial note. Assessment: Vital Signs/I&O: Vital Signs Date Time Temp Pulse Resp B/P (MAP) Pulse Ox O2 Delivery O2 Flow Rate FiO2 01/18/20 08:34 73 151/79 01/18/20 05:45 99.3 16 94 01/17/20 15:36 Room Air I & O 01/17/20 01/17/20 01/18/20 15:00 23:00 07:00 Intake Total 600 ml 540 ml Balance 600 ml 540 ml Current Medications: Meds: Current Medications Medications (Trade) Dose Ordered Sig/Shavon Route PRN Reason Start Time Stop Time Status Last Admin Dose Admin Quetiapine Fumarate (SEROquel) 12.5 mg BIDWMEALS PO 01/18/20 08:00 01/18/20 08:33 I have reviewed the current psychotropics carefully including drug interactions. Risk benefit ratio favors no change other than as noted in my dictated progress note. Diagnosis: Problems: (1) Impulse control disorder (2) Cognitive impairment (3) Major depressive disorder with psychotic features (4) Anxiety disorder, unspecified AMELIA PRAJAPATI MD Jan 18, 2020 11:55
[2020-01-18 15:26] VITALS: BP 169/131
[2020-01-18] MEDS: QUEtiapine 100 MG TABLET. PO SCH (20:14)
[2020-01-18] MEDS: TAMSULOSIN 0.4 MG CAP.ER.24H. PO SCH (20:16)
--- NOTE | 2020-01-18 21:52 | PDOC ---
Exam Note: Kareem Note: Please also refer to the separate dictated note~for this date of service dictated separately.~Patient seen individually. Discussed the patient with Nursing staff reviewed the chart.~Reviewed interim history and current functioning. Reviewed vital signs,~Labs/ Radiology~and current medications noted below. Continue current treatment with the changes noted in the dictated addendum note Assessment: Vital Signs/I&O: Vital Signs Date Time Temp Pulse Resp B/P (MAP) Pulse Ox O2 Delivery O2 Flow Rate FiO2 01/18/20 20:59 98.8 98 01/18/20 15:26 58 17 169/131 (144) Room Air I & O 01/17/20 01/17/20 01/18/20 15:00 23:00 07:00 Intake Total 600 ml 540 ml Balance 600 ml 540 ml Current Medications: Meds: Current Medications Medications (Trade) Dose Ordered Sig/Shavon Route PRN Reason Start Time Stop Time Status Last Admin Dose Admin Quetiapine Fumarate (SEROquel) 12.5 mg BIDWMEALS PO 01/18/20 08:00 01/18/20 17:05 I have reviewed the current psychotropics carefully including drug interactions. Risk benefit ratio favors no change other than as noted in my dictated progress note. Diagnosis: Problems: (1) Impulse control disorder (2) Cognitive impairment (3) Major depressive disorder with psychotic features (4) Anxiety disorder, unspecified AMELIA PRAJAPATI MD Jan 18, 2020 21:52
--- NOTE | 2020-01-18 22:00 | NUR ---
Patient is in his room on assumption of care. He is in pleasant spirits. Compliant with assessments and medications crushed in pudding. No agitation. Denies any pain or discomfort. Patient appears to be sleeping comfortably at present time. Will continue to monitor.
[2020-01-19 06:32] VITALS: BP 174/76
[2020-01-19] MEDS: ASPIRIN CHEWABLE 81 MG TABLET. PO SCH (08:55)
[2020-01-19] MEDS: POLYETHYLENE GLYCOL 3350 17 GM PACKET. PO SCH (08:55)
[2020-01-19] MEDS: QUEtiapine 25 MG TABLET. PO SCH ×2 (08:55→17:04)
[2020-01-19] MEDS: MECLIZINE 12.5 MG TABLET. PO SCH ×3 (08:55→19:40)
[2020-01-19] MEDS: DOCUSATE SODIUM 100 MG CAPSULE PO SCH ×2 (08:56→19:39)
[2020-01-19] MEDS: ACETAMINOPHEN 500 MG TABLET PO SCH ×3 (08:56→19:40)
[2020-01-19] MEDS: amLODIPine BESYLATE 5 MG TABLET PO SCH (08:56)
[2020-01-19] MEDS: carBAMazepine 200 MG TABLET PO SCH ×2 (08:56→19:40)
[2020-01-19] MEDS: MEMANTINE 10 MG TABLET. PO SCH ×2 (08:56→19:39)
--- NOTE | 2020-01-19 10:28 | TX PLAN ---
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, sexually inappropriate, resists assistance to transfer, agitated, rapid declining cognition, threatens staff, swatted staff's hands, and bulks up and gets into staff's personal space. Problems Active Problems: impaired memory and safety falls aggressive behaviors at [facility] Inactive Problems: Livan is medication compliant and slept 7.75 hours last night. Pt Strengths/Limitations Ability for [place]: Poor Cognitive Functioning/Ability: Fair Communication Skills/Ability: Fair Financial Resources: Good Insight/Judgement: Fair Intellectual Ability: Good Physical Health: Fair Social Skills: Good Stability in Family: Good Verbal Skills: Fair Discharge Criteria Discharge Criteria: Adequate arrangements @DC, Improved behavior, Improved mood/thought Preliminary Discharge Plan Preliminary DC Plan: Assisted Living, Memory Care Special Precautions Special Precautions: Agitation/Assault Fall Risk: High Initial D/C Plan [facility] vs. memory care, to be determined Identified Discharge Needs: [facility] will re-evaluate once Livan is stable. If they are not able to meet Livan's care needs, Family is checking into [facility] for possible memory care. Out patient psychiatry and counseling support would be benefical if available. Currently Utilized Resources Currently Utilized Resources/P: PCP 24 hour supervision and support provided by [facility] Referrals Community Resources: Psychiatry and counseling if available Identified Problems/Hx/Goals Objectives/Short-Term Goals Short Term Goals: Control abnormal behavior, Dec. Aggression, Dec. Outbursts, Medication Stabilization, Monitor Med Effects Short Term Goals in Patient's: Livan expressed desire to be able to take another trip to [place] with his . Livan reported that his memory is bad. Interventions/Frequency Staff Interventions/Frequency&: Nursing to provide routine checks, medication administration, and adl assistance. Psychaitrist to vist 3-5 times weekly. SW vists twice weekly. Small group activities as Livan desires. 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 Social: Livan has enjoyed traveling, photography, writing poetry, and sports. Education: Livan obtained a doctorate degree in mechanical engineering from [employer]. Community Follow-up PCP psychiatry/counseling support if available Community Provider/Family Inpu: Aayush, son/POA, will be involved in team meeting via phone on 12/29/19. Treatment Plan Explained Patient/Junior Network Engineer had this treatment plan explained to him/her as indicated by the signature below and has been given the opportunity to ask questions and make suggestions: Date: Patient/Junior Network Engineer Signature: Status Update Update WEEKLY UPDATE/NOTE: Livan is averaging 100% of meal intakes and seven hours of sleep at night. He has a UTI and will be seen by the supervisor prop making today for treatment recommendations. Livan needs ample time to take medications and can get grumpy with staff at times of care and if he prefers to sleep. Livan's d/c will be postponed until 01/23/20 due to current UTI needing treatment. EMMANUEL will update family and [facility] and coordinate d/c planning for 01/23/20. CULLEN METZ Jan 19, 2020 10:28
--- NOTE | 2020-01-19 11:04 | NUR ---
EMMANUEL e-mailed update to Aayush (MATTHEW) and Handy ([facility] RADHA) with tentative d/c date of 01/23/20. Livan will be held over the weekend due to UTI. EMMANUEL is awaiting reply from family about transport time on 01/23/20.
--- NOTE | 2020-01-19 11:19 | NUR ---
[facility] Social Work Discharge Planning Form Patient Name EVELIO BALDERRAMA Admit Date: 12/22/2019 DISCHARGE PLAN Discharge Destination: [facility] Care Assessment: N/A Transportation: Family will provide transport on 01/23/20, Kaylee Argueta will cloth picker at 10:30am. Special Instructions/Notes: Upon return to [place], arrange for f/u appointments with PCP and facility psychiatrist in 7-10 days. DISCHARGE TO FACILITY Facility: [facility] Address: [address] [place] [address] Contact Name: RADHA Medina PCP: Dr. Cunningham [phone], Psychiatrist: Dr. Dangelo
--- NOTE | 2020-01-19 11:26 | NUR ---
Nursing note: Pt asleep in his bed when approached for morning med pass. He was easily aroused, but irritable with being woken up. He was resistive with taking his meds crushed in pudding and demanding for this nurse to leave his room. He was encouraged to take his meds, he opened his mouth and accepted the bite of pudding, but then took a while to swallow it. Pt did eventually swallow the pudding and was allowed to go back to sleep. He is currently sleeping in his bed. Will continue to monitor.
[2020-01-19] MEDS: CEPHALEXIN 250 MG CAPSULE PO SCH ×2 (17:04→19:40)
[2020-01-19] MEDS: QUEtiapine 100 MG TABLET. PO SCH (19:40)
[2020-01-19] MEDS: TAMSULOSIN 0.4 MG CAP.ER.24H. PO SCH (19:41)
--- NOTE | 2020-01-19 21:52 | PDOC ---
Exam Note: Kareem Note: Please also refer to the separate dictated note~for this date of service dictated separately.~Patient seen individually. Discussed the patient with Nursing staff reviewed the chart.~Reviewed interim history and current functioning. Reviewed vital signs,~Labs/ Radiology~and current medications noted below. Continue current treatment with the changes noted in the dictated addendum note Assessment: Vital Signs/I&O: Vital Signs Date Time Temp Pulse Resp B/P (MAP) Pulse Ox O2 Delivery O2 Flow Rate FiO2 01/19/20 17:40 98.0 01/19/20 08:56 67 174/76 01/19/20 06:32 20 94 01/18/20 15:26 Room Air I & O 01/18/20 01/18/20 01/19/20 15:00 23:00 07:00 Intake Total 360 ml 240 ml Balance 360 ml 240 ml Current Medications: Meds: Current Medications Medications (Trade) Dose Ordered Sig/Shavon Route PRN Reason Start Time Stop Time Status Last Admin Dose Admin Cephalexin HCl (Keflex) 500 mg TID PO 01/19/20 17:00 01/24/20 16:59 01/19/20 19:40 I have reviewed the current psychotropics carefully including drug interactions. Risk benefit ratio favors no change other than as noted in my dictated progress note. 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
--- NOTE | 2020-01-19 23:20 | NUR ---
This evening pt was in his room or the hallway he was mainly just standing and would sometimes interact with staff by pointing finger. He took his meds whole without difficulty and was cooperative with taking a shower. Since going to bed he has been sleeping
[2020-01-20 06:16] LABS: BASO % 0 % (0-3); EOS # 0.2 x10^3/uL (0.0-0.7); EOS % 4 % (0-3); HEMOGLOBIN 11.7 g/dL (13.0-17.5); LYMPH # 1.4 x10^3/uL (1.0-4.8); LYMPH % 25 % (24-48); MEAN CORPUSCULAR HEMOGLOBIN 34 pg (25-35); MEAN CORPUSCULAR HGB CONC 34 g/dL (31-37); MEAN CORPUSCULAR VOLUME 101 fL (79-100); MONO # 0.6 x10^3/uL (0.0-1.1); MONO % 10 % (0-9); NEUT # 3.4 x10^3uL (1.8-7.7); NEUT % 60 % (31-73); PLATELET COUNT 223 x10^3/uL (140-400); RED BLOOD COUNT 3.47 x10^6/uL (4.30-5.70); RED CELL DISTRIBUTION WIDTH 13.1 % (11.5-14.5); WHITE BLOOD COUNT 5.6 x10^3/uL (4.0-11.0)
[2020-01-20 06:18] VITALS: BP 156/73
[2020-01-20 06:25] LABS: ALBUMIN 3.1 g/dL (3.4-5.0); ALBUMIN/GLOBULIN RATIO 0.8 (1.0-1.7); CREATININE 1.2 mg/dL (0.7-1.3); GFR 57.1; POTASSIUM 4.3 mmol/L (3.5-5.1); TOTAL BILIRUBIN 0.2 mg/dL (0.2-1.0)
--- NOTE | 2020-01-20 06:33 | PDOC ---
Exam Note: Kareem Note: This note is a late entry for 01/18/2020 covers elements not covered in my initial note. Subjective: The patient was reviewed on telehealth rounds due to COVID-19 restrictions on the unit in the evening of 01/18/2020 with Genesis CARRILLO. Per Genesis RN, the patient slept 5-1/4 hours previous night. He refused his medications and took them in the morning, refused them again after that. He had a rough day per nursing report. He does have UTI and sensitivity is awaited. We will defer to Dr. Smith and Dr. Dai to treat once this is received. Review of Systems: He is hard of hearing. No CV, , pulmonary, eye system symptoms on review. Mental Status Exam: Oriented to himself and situation. Speech is coherent. Abstraction is fair. Computation impaired. Language function intact. Attention span is short. No suicidal or homicidal ideation. Laboratory Data: Reviewed. Impression: Major depressive disorder, recurrent. Mild cognitive impairment. Hard of hearing. Anxiety disorder unspecified. Plan: No change from initial note. I feel treating the UTI is quite essential to help reduce his agitation, delusions and even improve some of his confusion. Assessment: Vital Signs/I&O: Vital Signs Date Time Temp Pulse Resp B/P (MAP) Pulse Ox O2 Delivery O2 Flow Rate FiO2 01/20/20 06:18 98.0 74 16 156/73 (100) 95 01/18/20 15:26 Room Air I & O 01/19/20 01/19/20 01/20/20 15:00 23:00 07:00 Intake Total 240 ml 240 ml Balance 240 ml 240 ml Labs: Laboratory Tests Test 01/20/20 05:58 White Blood Count 5.6 x10^3/uL (4.0-11.0) Red Blood Count 3.47 x10^6/uL (4.30-5.70) L Hemoglobin 11.7 g/dL (13.0-17.5) L Hematocrit 35.0 % (39.0-53.0) L Mean Corpuscular Volume 101 fL (79-100) H Mean Corpuscular Hemoglobin 34 pg (25-35) Mean Corpuscular Hemoglobin Concent 34 g/dL (31-37) Red Cell Distribution Width 13.1 % (11.5-14.5) Platelet Count 223 x10^3/uL (140-400) Neutrophils (%) (Auto) 60 % (31-73) Lymphocytes (%) (Auto) 25 % (24-48) Monocytes (%) (Auto) 10 % (0-9) H Eosinophils (%) (Auto) 4 % (0-3) H Basophils (%) (Auto) 0 % (0-3) Neutrophils # (Auto) 3.4 x10^3uL (1.8-7.7) Lymphocytes # (Auto) 1.4 x10^3/uL (1.0-4.8) Monocytes # (Auto) 0.6 x10^3/uL (0.0-1.1) Eosinophils # (Auto) 0.2 x10^3/uL (0.0-0.7) Basophils # (Auto) 0.0 x10^3/uL (0.0-0.2) Sodium Level 143 mmol/L (136-145) Potassium Level 4.3 mmol/L (3.5-5.1) Chloride Level 106 mmol/L (98-107) Carbon Dioxide Level 30 mmol/L (21-32) Anion Gap 7 (6-14) Blood Urea Nitrogen 27 mg/dL (8-26) H Creatinine 1.2 mg/dL (0.7-1.3) Estimated GFR (Cockcroft-Gault) 57.1 BUN/Creatinine Ratio 23 (6-20) H Glucose Level 96 mg/dL (70-99) Calcium Level 9.0 mg/dL (8.5-10.1) Total Bilirubin 0.2 mg/dL (0.2-1.0) Aspartate Amino Transferase (AST) 17 U/L (15-37) Alanine Aminotransferase (ALT) 23 U/L (16-63) Alkaline Phosphatase 82 U/L (46-116) Total Protein 7.0 g/dL (6.4-8.2) Albumin 3.1 g/dL (3.4-5.0) L Albumin/Globulin Ratio 0.8 (1.0-1.7) L Current Medications: Meds: Current Medications Medications (Trade) Dose Ordered Sig/Shavon Route PRN Reason Start Time Stop Time Status Last Admin Dose Admin Cephalexin HCl (Keflex) 500 mg TID PO 01/19/20 17:00 01/24/20 16:59 01/19/20 19:40 I have reviewed the current psychotropics carefully including drug interactions. Risk benefit ratio favors no change other than as noted in my dictated progress note. 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
--- NOTE | 2020-01-20 06:42 | PDOC ---
Exam Note: Kareem Note: This note is a late entry for 01/19/2020 covers elements not covered in my initial note. Subjective: The patient was reviewed on telehealth rounds due to COVID-19 restrictions on the unit in the morning of 01/19/2020 with treatment team with Luzmaria Bajwa and Shawanda (neonatal social worker) and Genesis RN. Per Genesis RN in the evening on telehealth rounds, the patient slept 7 hours previous night. Appetite is 100%. He is somewhat drowsy. He refused breakfast, less grumpy per nursing report. Review of Systems: He is hard of hearing. No CV, , pulmonary, eye system symptoms on review. Mental Status Exam: Oriented to himself and situation. During the visit we addressed with him the discharge plans were to go back to his at [place] but he had to be compliant with his medications. He was restless, anxious, stated he needed to go to the restroom and walked away. Computation impaired. Language function intact. Attention span is short. No suicidal or homicidal ideation. No clear psychotic symptoms. Laboratory Data: Reviewed. Impression: Major depressive disorder, recurrent. Mild cognitive impairment. Hard of hearing. Anxiety disorder unspecified. Plan: No change from initial note. Urine C&S is returned and Dr. Smith has started him on Keflex. He is refusing oral antibiotics. We will defer to Dr. Smith to consider parenteral antibiotics if possible. Assessment: Vital Signs/I&O: Vital Signs Date Time Temp Pulse Resp B/P (MAP) Pulse Ox O2 Delivery O2 Flow Rate FiO2 01/20/20 06:18 98.0 74 16 156/73 (100) 95 01/18/20 15:26 Room Air I & O 01/19/20 01/19/20 01/20/20 15:00 23:00 07:00 Intake Total 240 ml 240 ml Balance 240 ml 240 ml Labs: Laboratory Tests Test 01/20/20 05:58 White Blood Count 5.6 x10^3/uL (4.0-11.0) Red Blood Count 3.47 x10^6/uL (4.30-5.70) L Hemoglobin 11.7 g/dL (13.0-17.5) L Hematocrit 35.0 % (39.0-53.0) L Mean Corpuscular Volume 101 fL (79-100) H Mean Corpuscular Hemoglobin 34 pg (25-35) Mean Corpuscular Hemoglobin Concent 34 g/dL (31-37) Red Cell Distribution Width 13.1 % (11.5-14.5) Platelet Count 223 x10^3/uL (140-400) Neutrophils (%) (Auto) 60 % (31-73) Lymphocytes (%) (Auto) 25 % (24-48) Monocytes (%) (Auto) 10 % (0-9) H Eosinophils (%) (Auto) 4 % (0-3) H Basophils (%) (Auto) 0 % (0-3) Neutrophils # (Auto) 3.4 x10^3uL (1.8-7.7) Lymphocytes # (Auto) 1.4 x10^3/uL (1.0-4.8) Monocytes # (Auto) 0.6 x10^3/uL (0.0-1.1) Eosinophils # (Auto) 0.2 x10^3/uL (0.0-0.7) Basophils # (Auto) 0.0 x10^3/uL (0.0-0.2) Sodium Level 143 mmol/L (136-145) Potassium Level 4.3 mmol/L (3.5-5.1) Chloride Level 106 mmol/L (98-107) Carbon Dioxide Level 30 mmol/L (21-32) Anion Gap 7 (6-14) Blood Urea Nitrogen 27 mg/dL (8-26) H Creatinine 1.2 mg/dL (0.7-1.3) Estimated GFR (Cockcroft-Gault) 57.1 BUN/Creatinine Ratio 23 (6-20) H Glucose Level 96 mg/dL (70-99) Calcium Level 9.0 mg/dL (8.5-10.1) Total Bilirubin 0.2 mg/dL (0.2-1.0) Aspartate Amino Transferase (AST) 17 U/L (15-37) Alanine Aminotransferase (ALT) 23 U/L (16-63) Alkaline Phosphatase 82 U/L (46-116) Total Protein 7.0 g/dL (6.4-8.2) Albumin 3.1 g/dL (3.4-5.0) L Albumin/Globulin Ratio 0.8 (1.0-1.7) L Current Medications: Meds: Current Medications Medications (Trade) Dose Ordered Sig/Shavon Route PRN Reason Start Time Stop Time Status Last Admin Dose Admin Cephalexin HCl (Keflex) 500 mg TID PO 01/19/20 17:00 01/24/20 16:59 01/19/20 19:40 I have reviewed the current psychotropics carefully including drug interactions. Risk benefit ratio favors no change other than as noted in my dictated progress note. 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
[2020-01-20] MEDS: MEMANTINE 10 MG TABLET. PO SCH ×2 (08:07→19:59)
[2020-01-20] MEDS: ACETAMINOPHEN 500 MG TABLET PO SCH ×3 (08:08→19:58)
[2020-01-20] MEDS: CEPHALEXIN 250 MG CAPSULE PO SCH ×3 (08:08→19:56)
[2020-01-20] MEDS: QUEtiapine 25 MG TABLET. PO SCH ×2 (08:08→16:48)
[2020-01-20] MEDS: amLODIPine BESYLATE 5 MG TABLET PO SCH (08:09)
[2020-01-20] MEDS: carBAMazepine 200 MG TABLET PO SCH ×2 (08:09→19:57)
[2020-01-20] MEDS: ASPIRIN CHEWABLE 81 MG TABLET. PO SCH (08:10)
[2020-01-20] MEDS: MECLIZINE 12.5 MG TABLET. PO SCH ×3 (08:10→19:59)
[2020-01-20] MEDS: POLYETHYLENE GLYCOL 3350 17 GM PACKET. PO SCH (08:10)
[2020-01-20] MEDS: DOCUSATE SODIUM 100 MG CAPSULE PO SCH ×2 (08:10→19:58)
--- NOTE | 2020-01-20 13:51 | NUR ---
EMMANUEL offered Livan to go outdoors and get fresh air on the patio. Livan accepted SW offer and ambulated with a walker to the patio. Livan sat on the patio for 30 minutes before returning to his room. He was calm and without s/s of distress. Livan was more confused than normal as he has a current UTI. He had been reading his Bible prior to going outdoors. While outdoors, he would repeat "David is in the book." At times, he would stand, raise his arms in the air, and repeat this. Attempted to update Livan about returning to [place] on Thursday and that he will be reunited with his . At times, he seemed to understand. Livan appeared tired. Upon returning to his room, he laid down in his bed. EMMANUEL provided a local newspaper for Livan to read. Livan is scheduled for d/c to [facility] on 01/23/20. Updated family and [facility] via e-mail this date.
[2020-01-20 15:42] VITALS: BP 171/89
--- NOTE | 2020-01-20 17:17 | NUR ---
PATIENT NONCOMPLIANT THIS MORNING WHEN IT CAME TO ASSESSMENT AND MEDICATION PASS. PATIENT STATED " DO NOT BE HAPPY" MULTIPLE TIMES AN ASSESSMENT WAS ATTEMPTED TO BE DONE. PATIENT CONTINUED TO READ NEWS PAPER AND TOLD ME TO GET OUT OF THE ROOM. THE DAY WENT ON PATIENT ALLOWED MORE AND MORE ASSISTANCE BY STAFF. PATIENT BEGAN TO GET RESTLESS THROUGHOUT THE DAY AND CONTINUED TO GET UP OUT OF BED. PATIENT WAS EVENTUALLY TAKEN OUTSIDE WITH A STAFF MEMBER FOR ABOUT 10-15 MINUTES. THIS AFTERNOON PATIENT WAS COMPLIANT WITH MED PASS AND GAVE A THUMBS UP AFTER TAKING THEIR MEDICATIONS.
[2020-01-20] MEDS: TAMSULOSIN 0.4 MG CAP.ER.24H. PO SCH (19:55)
[2020-01-20] MEDS: LACTOBACILLUS RHAMNOSUS GG 1 CAPSULE. PO SCH (19:55)
[2020-01-20] MEDS: QUEtiapine 100 MG TABLET. PO SCH (19:57)
--- NOTE | 2020-01-20 21:52 | PDOC ---
Exam Note: Kareem Note: Please also refer to the separate dictated note~for this date of service dictated separately.~Patient seen individually. Discussed the patient with Nursing staff reviewed the chart.~Reviewed interim history and current functioning. Reviewed vital signs,~Labs/ Radiology~and current medications noted below. Continue current treatment with the changes noted in the dictated addendum note Assessment: Vital Signs/I&O: Vital Signs Date Time Temp Pulse Resp B/P (MAP) Pulse Ox O2 Delivery O2 Flow Rate FiO2 01/20/20 21:07 98.4 96 01/20/20 15:42 69 19 171/89 (116) 01/18/20 15:26 Room Air I & O 01/19/20 01/19/20 01/20/20 15:00 23:00 07:00 Intake Total 240 ml 240 ml Balance 240 ml 240 ml Labs: Laboratory Tests Test 01/20/20 05:58 White Blood Count 5.6 x10^3/uL (4.0-11.0) Red Blood Count 3.47 x10^6/uL (4.30-5.70) L Hemoglobin 11.7 g/dL (13.0-17.5) L Hematocrit 35.0 % (39.0-53.0) L Mean Corpuscular Volume 101 fL (79-100) H Mean Corpuscular Hemoglobin 34 pg (25-35) Mean Corpuscular Hemoglobin Concent 34 g/dL (31-37) Red Cell Distribution Width 13.1 % (11.5-14.5) Platelet Count 223 x10^3/uL (140-400) Neutrophils (%) (Auto) 60 % (31-73) Lymphocytes (%) (Auto) 25 % (24-48) Monocytes (%) (Auto) 10 % (0-9) H Eosinophils (%) (Auto) 4 % (0-3) H Basophils (%) (Auto) 0 % (0-3) Neutrophils # (Auto) 3.4 x10^3uL (1.8-7.7) Lymphocytes # (Auto) 1.4 x10^3/uL (1.0-4.8) Monocytes # (Auto) 0.6 x10^3/uL (0.0-1.1) Eosinophils # (Auto) 0.2 x10^3/uL (0.0-0.7) Basophils # (Auto) 0.0 x10^3/uL (0.0-0.2) Sodium Level 143 mmol/L (136-145) Potassium Level 4.3 mmol/L (3.5-5.1) Chloride Level 106 mmol/L (98-107) Carbon Dioxide Level 30 mmol/L (21-32) Anion Gap 7 (6-14) Blood Urea Nitrogen 27 mg/dL (8-26) H Creatinine 1.2 mg/dL (0.7-1.3) Estimated GFR (Cockcroft-Gault) 57.1 BUN/Creatinine Ratio 23 (6-20) H Glucose Level 96 mg/dL (70-99) Calcium Level 9.0 mg/dL (8.5-10.1) Total Bilirubin 0.2 mg/dL (0.2-1.0) Aspartate Amino Transferase (AST) 17 U/L (15-37) Alanine Aminotransferase (ALT) 23 U/L (16-63) Alkaline Phosphatase 82 U/L (46-116) Total Protein 7.0 g/dL (6.4-8.2) Albumin 3.1 g/dL (3.4-5.0) L Albumin/Globulin Ratio 0.8 (1.0-1.7) L Current Medications: Meds: Current Medications Medications (Trade) Dose Ordered Sig/Shavon Route PRN Reason Start Time Stop Time Status Last Admin Dose Admin Lactobacillus Rhamnosus (Culturelle) 1 cap BID PO 01/20/20 21:00 01/20/20 19:55 I have reviewed the current psychotropics carefully including drug interactions. Risk benefit ratio favors no change other than as noted in my dictated progress note. 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
--- NOTE | 2020-01-20 22:00 | NUR ---
Patient is in his room on assumption of care, awake in bed. He is compliant with assessments and medications crushed in pudding. No agitation. Denies pain or discomfort. Patient appears to be sleeping comfortably at present time.
[2020-01-21 06:18] VITALS: BP 118/64
[2020-01-21] MEDS: POLYETHYLENE GLYCOL 3350 17 GM PACKET. PO SCH (08:01)
[2020-01-21] MEDS: CEPHALEXIN 250 MG CAPSULE PO SCH ×3 (08:02→19:48)
[2020-01-21] MEDS: DOCUSATE SODIUM 100 MG CAPSULE PO SCH ×2 (08:02→19:48)
[2020-01-21] MEDS: amLODIPine BESYLATE 5 MG TABLET PO SCH (08:02)
[2020-01-21] MEDS: carBAMazepine 200 MG TABLET PO SCH ×2 (08:02→19:46)
[2020-01-21] MEDS: ACETAMINOPHEN 500 MG TABLET PO SCH ×3 (08:02→19:45)
[2020-01-21] MEDS: ASPIRIN CHEWABLE 81 MG TABLET. PO SCH (08:02)
[2020-01-21] MEDS: MEMANTINE 10 MG TABLET. PO SCH ×2 (08:02→19:47)
[2020-01-21] MEDS: LACTOBACILLUS RHAMNOSUS GG 1 CAPSULE. PO SCH ×2 (08:03→19:45)
[2020-01-21] MEDS: QUEtiapine 25 MG TABLET. PO SCH ×2 (08:03→17:00)
[2020-01-21] MEDS: MECLIZINE 12.5 MG TABLET. PO SCH ×3 (08:03→19:44)
[2020-01-21 15:26] VITALS: BP 142/84
--- NOTE | 2020-01-21 16:20 | NUR ---
Pt has been drowsy today. Has been up for meals. Pt took meds in ice cream. up in afternoon and ate popcorn and pop. Has been in pleasant spirits.
[2020-01-21] MEDS: TAMSULOSIN 0.4 MG CAP.ER.24H. PO SCH (19:44)
[2020-01-21] MEDS: QUEtiapine 100 MG TABLET. PO SCH (19:46)
[2020-01-21] MEDS ORDERED: carBAMazepine 200 MG TABLET PO SCH (21:00)
--- NOTE | 2020-01-21 21:49 | PDOC ---
Exam Note: Kareem Note: Please also refer to the separate dictated note~for this date of service dictated separately.~Patient seen individually. Discussed the patient with Nursing staff reviewed the chart.~Reviewed interim history and current functioning. Reviewed vital signs,~Labs/ Radiology~and current medications noted below. Continue current treatment with the changes noted in the dictated addendum note Assessment: Vital Signs/I&O: Vital Signs Date Time Temp Pulse Resp B/P (MAP) Pulse Ox O2 Delivery O2 Flow Rate FiO2 01/21/20 20:00 98.2 97 Room Air 01/21/20 15:26 68 20 142/84 (103) I & O 01/20/20 01/20/20 01/21/20 15:00 23:00 07:00 Intake Total 240 ml 560 ml Balance 240 ml 560 ml Current Medications: Meds: Current Medications Medications (Trade) Dose Ordered Sig/Shavon Route PRN Reason Start Time Stop Time Status Last Admin Dose Admin Carbamazepine (TEGretol) 400 mg HS PO 01/21/20 21:00 01/21/20 19:46 I have reviewed the current psychotropics carefully including drug interactions. Risk benefit ratio favors no change other than as noted in my dictated progress note. 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
--- NOTE | 2020-01-21 22:00 | NUR ---
Patient is in his room on assumption of care, awake in bed. He is compliant with assessments and medications crushed in pudding. Very disorganized tonight. Keeps getting up and going to the bathroom, and then stands over the toilet saying "I'm gonna send them to hell" repeatedly. Became extremely irritable with attempts to redirect, at one point punching the bathroom door and yelling "It's private, get out!" Patient was eventually redirected back to bed. Will continue to monitor.
[2020-01-22 05:27] VITALS: BP 146/76
[2020-01-22] MEDS: ACETAMINOPHEN 500 MG TABLET PO SCH ×3 (07:56→19:47)
[2020-01-22] MEDS: amLODIPine BESYLATE 5 MG TABLET PO SCH (07:57)
[2020-01-22] MEDS: LACTOBACILLUS RHAMNOSUS GG 1 CAPSULE. PO SCH ×2 (07:57→19:47)
[2020-01-22] MEDS: QUEtiapine 25 MG TABLET. PO SCH ×2 (07:57→16:16)
[2020-01-22] MEDS: MECLIZINE 12.5 MG TABLET. PO SCH ×3 (07:57→19:48)
[2020-01-22] MEDS: DOCUSATE SODIUM 100 MG CAPSULE PO SCH ×2 (07:57→19:48)
[2020-01-22] MEDS: ASPIRIN CHEWABLE 81 MG TABLET. PO SCH (07:57)
[2020-01-22] MEDS: MEMANTINE 10 MG TABLET. PO SCH ×2 (07:58→19:47)
[2020-01-22] MEDS: carBAMazepine 200 MG TABLET PO SCH ×2 (07:58→19:48)
[2020-01-22] MEDS: POLYETHYLENE GLYCOL 3350 17 GM PACKET. PO SCH (07:58)
[2020-01-22] MEDS: CEPHALEXIN 250 MG CAPSULE PO SCH ×3 (07:58→19:49)
--- NOTE | 2020-01-22 08:34 | NUR ---
Patient eager to shower this morning. patient encouraged to wear mask when out of the room. Patient complaint with medication and assessment.
[2020-01-22 15:20] VITALS: BP 140/80
[2020-01-22] MEDS: TAMSULOSIN 0.4 MG CAP.ER.24H. PO SCH (19:48)
[2020-01-22] MEDS: QUEtiapine 100 MG TABLET. PO SCH (19:48)
--- NOTE | 2020-01-22 21:53 | PDOC ---
Exam Note: Kareem Note: Please also refer to the separate dictated note~for this date of service dictated separately.~Patient seen individually. Discussed the patient with Nursing staff reviewed the chart.~Reviewed interim history and current functioning. Reviewed vital signs,~Labs/ Radiology~and current medications noted below. Continue current treatment with the changes noted in the dictated addendum note Assessment: Vital Signs/I&O: Vital Signs Date Time Temp Pulse Resp B/P (MAP) Pulse Ox O2 Delivery O2 Flow Rate FiO2 01/22/20 21:00 97.5 97 01/22/20 15:20 66 20 140/80 (100) Room Air I & O 01/21/20 01/21/20 01/22/20 15:00 23:00 07:00 Intake Total 240 ml 480 ml Balance 240 ml 480 ml Current Medications: Meds: Current Medications Medications (Trade) Dose Ordered Sig/Shavon Route PRN Reason Start Time Stop Time Status Last Admin Dose Admin Carbamazepine (TEGretol) 200 mg DAILY PO 01/22/20 09:00 01/22/20 07:58 I have reviewed the current psychotropics carefully including drug interactions. Risk benefit ratio favors no change other than as noted in my dictated progress note. 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
--- NOTE | 2020-01-22 21:57 | NUR ---
Pt highly disorganized this evening. Compliant with crushed medications in pudding with coaxing. During med pass, pt pointed to the buttons on the bed and stated "if you touch these, the place will blow up." Pt up to the bathroom and adamantly refused help from staff. Pt observed talking in the bathroom and repeatedly flushing the toilet. Pt became irritable when staff attempted to assist pt. Pt eventually took self back to bed where he is currently sleeping. Will continue to monitor.
[2020-01-23] MEDS ORDERED: CEPH-264 PO (00:23)
[2020-01-23] MEDS ORDERED: CARB200T PO (00:24)
[2020-01-23 05:22] VITALS: BP 172/94
[2020-01-23 05:36] VITALS: BP 172/94
[2020-01-23] MEDS: amLODIPine BESYLATE 5 MG TABLET PO SCH (05:36)
--- NOTE | 2020-01-23 05:40 | NUR ---
Pt had elevated BP of 172/94 this morning. 0900 dose of Norvasc administered at this time.
--- NOTE | 2020-01-23 06:52 | PDOC ---
Exam Note: Kareem Note: This note is a late entry for 01/20/2020 covers elements not covered in my initial note. Subjective: The patient was reviewed on telehealth rounds due to COVID-19 restrictions on the unit in the evening of 01/20/2020 with Tr CARRILLO. Discussed with nursing staff, reviewed the chart. Overall, the patient remains somewhat withdrawn, anxious, and restless at times. He has refused medications in the morning, refusing his antibiotics. He is making sarcastic comments to the nursing staff do not be happy, when she offered him his antibiotics he refused. Review of Systems: The patient is hard of hearing. No CV, , pulmonary, eye system symptoms on review. Mental Status Exam: Oriented to himself and situation. He remains withdrawn, anxious. Speech coherent. Abstraction is fair. Computation impaired. Langua ge function intact. Attention span is short. No suicidal or homicidal ideation. No clear psychotic symptoms. Laboratory Data: Reviewed. Impression: Major depressive disorder, recurrent. Mild cognitive impairment. Anxiety disorder unspecified. Impulse control disorder unspecified. Plan: We will persevere with treating his UTI which should help with agitation, paranoia as well. Assessment: Vital Signs/I&O: Vital Signs Date Time Temp Pulse Resp B/P (MAP) Pulse Ox O2 Delivery O2 Flow Rate FiO2 01/23/20 05:36 70 172/94 01/23/20 05:22 98.0 20 97 01/22/20 15:20 Room Air I & O 01/22/20 01/22/20 01/23/20 15:00 23:00 07:00 Intake Total 720 ml 340 ml Balance 720 ml 340 ml Current Medications: Meds: Current Medications Medications (Trade) Dose Ordered Sig/Shavon Route PRN Reason Start Time Stop Time Status Last Admin Dose Admin Carbamazepine (TEGretol) 200 mg DAILY PO 01/22/20 09:00 01/22/20 07:58 I have reviewed the current psychotropics carefully including drug interactions. Risk benefit ratio favors no change other than as noted in my dictated progress note. 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
--- NOTE | 2020-01-23 07:06 | PDOC ---
Exam Note: Kareem Note: This note is a late entry for 01/22/2020 covers elements not covered in my initial note. Subjective: The patient was reviewed on telehealth rounds due to COVID-19 restrictions on the unit in the evening of 01/22/2020 with Fabian CARRILLO. Discussed with nursing staff, reviewed the chart. He had a good day, more active, interactive, walking in the hallway, was talking and interacting more with the staff. He slept 6 hours previous night. Review of Systems: He is hard of hearing. No CV, , pulmonary, eye system symptoms on review. Mental Status Exam: Reasonably oriented. Speech is coherent. Abstraction is fair. Computation impaired. Language function intact. Attention span is short. No suicidal or homicidal ideation. Laboratory Data: Reviewed. Impression: Major depressive disorder, recurrent. Mild cognitive impairment. Hard of hearing. Anxiety disorder unspecified. Impulse control disorder unspecified. Plan: No change from initial note. Assessment: Vital Signs/I&O: Vital Signs Date Time Temp Pulse Resp B/P (MAP) Pulse Ox O2 Delivery O2 Flow Rate FiO2 01/23/20 05:36 70 172/94 01/23/20 05:22 98.0 20 97 01/22/20 15:20 Room Air I & O 01/22/20 01/22/20 01/23/20 15:00 23:00 07:00 Intake Total 720 ml 340 ml Balance 720 ml 340 ml Current Medications: Meds: Current Medications Medications (Trade) Dose Ordered Sig/Shavon Route PRN Reason Start Time Stop Time Status Last Admin Dose Admin Carbamazepine (TEGretol) 200 mg DAILY PO 01/22/20 09:00 01/22/20 07:58 I have reviewed the current psychotropics carefully including drug interactions. Risk benefit ratio favors no change other than as noted in my dictated progress note. 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
[2020-01-23] MEDS: QUEtiapine 25 MG TABLET. PO SCH (07:33)
[2020-01-23] MEDS: POLYETHYLENE GLYCOL 3350 17 GM PACKET. PO SCH (07:33)
[2020-01-23] MEDS: LACTOBACILLUS RHAMNOSUS GG 1 CAPSULE. PO SCH (07:34)
[2020-01-23] MEDS: MEMANTINE 10 MG TABLET. PO SCH (07:34)
[2020-01-23] MEDS: MECLIZINE 12.5 MG TABLET. PO SCH (07:34)
[2020-01-23] MEDS: ASPIRIN CHEWABLE 81 MG TABLET. PO SCH (07:34)
[2020-01-23] MEDS: carBAMazepine 200 MG TABLET PO SCH (07:34)
[2020-01-23] MEDS: DOCUSATE SODIUM 100 MG CAPSULE PO SCH (07:34)
[2020-01-23] MEDS: CEPHALEXIN 250 MG CAPSULE PO SCH (07:35)
[2020-01-23] MEDS: ACETAMINOPHEN 500 MG TABLET PO SCH (07:35)
--- NOTE | 2020-01-23 10:09 | NUR ---
Nursing note: Pt in his room for morning meds and assessment. He was initially very cheerful, sat right up, and poured about half his meds in his mouth and swallowed them whole. As soon as he finished with the first half, he handed the pill cup back to this nurse and he refused to take the rest of them. Pt quickly became angry and came out of his room using the tray table as his walker. He was very difficult to redirect and threw his cup of orange juice on this nurse. PRN was crushed and mixed with pudding along with the second half of his pills he had not taken. He is currently sitting in the hallway. Will continue to monitor.
--- NOTE | 2020-01-23 12:16 | NUR ---
Transition Record was faxed to follow-up provider with the following elements: Reason for admission, procedures, tests, principal diagnosis, pending studies, patient instructions, 24/11 contact information for unit, phone number to obtain pending test results, plan for follow-up care, physician follow-up, advanced directive information, and medication list with dose, duration and instructions. This information was included in the following documents: History and physical, lab results, study results, progress notes, social work planning form, DC instruction form, patient visit summary, and medication reconciliation form. Date & time record faxed: 01/23/2020 @ 0052 Record faxed to: Isidro Key @ [phone] Record discussed with/ report given to: Adam @ [phone]
--- NOTE | 2020-01-23 21:51 | PDOC ---
Exam Note: Kareem Note: Please also refer to the separate dictated note~for this date of service dictated separately.~Patient seen individually. Discussed the patient with Nursing staff reviewed the chart.~Reviewed interim history and current functioning. Reviewed vital signs,~Labs/ Radiology~and current medications noted below. Continue current treatment with the changes noted in the dictated addendum note Assessment: Vital Signs/I&O: Vital Signs Date Time Temp Pulse Resp B/P (MAP) Pulse Ox O2 Delivery O2 Flow Rate FiO2 01/23/20 05:36 70 172/94 01/23/20 05:22 98.0 20 97 01/22/20 15:20 Room Air I & O 01/22/20 01/22/20 01/23/20 15:00 23:00 07:00 Intake Total 720 ml 340 ml Balance 720 ml 340 ml Current Medications: I have reviewed the current psychotropics carefully including drug interactions. Risk benefit ratio favors no change other than as noted in my dictated progress note. 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
--- NOTE | 2020-01-25 18:41 | DS ---
DATE OF DISCHARGE: 01/23/2020 DISCHARGE SUMMARY AND PSYCHIATRIC PROGRESS NOTE This late entry 01/23/2020 covers elements, not covered in my initial note. REASON FOR ADMISSION: Please refer to the admission history for details. Briefly, the patient is an 89-year-old male referred to us from [address] [place] [address] where he presented from [facility] on account of increasing verbal aggression with female staff members. He was sexually inappropriate, resistive to help with transfers at times. He is intermittently agitated. He had a rapid decline in his cognition, was threatening staff, swatting at staff's hands. He made statements "you are not going to stop me" and postures at staff and was getting into staff's personal space. Behaviors were deemed dangerous, unmanageable, had failed outpatient psychiatric interventions resulting in this referral. SIGNIFICANT FINDINGS AND CLINICAL COURSE: Following admission, the patient was seen daily individually from a psychiatric standpoint by myself and followed medically per Dr. Dai/Dr. Smith. He was quite hard of hearing, which made communication harder and his agitation worse. He was also confused, agitated, paranoid and depressed. Adjustments were made in his psychotropics and he seemed to respond to a combination of melatonin 6 mg at bedtime p.r.n. insomnia; Seroquel 50 mg at bedtime, 12.5 mg b.i.d. with meals; Namenda 10 mg b.i.d.; Tegretol was increased to 200 mg a.m., 400 mg at bedtime for trigeminal neuralgia. He was noted to be quite obsessive, ruminative and antidepressants were changed to Luvox 25 mg daily and he remained on Zyprexa p.r.n. He did develop UTI, which worsened his agitation during part of his hospitalization and this was treated. His hospitalization was prolonged due to COVID-19 exposure on the unit and restrictions placed on all admission discharges by the Health Department. He was finally discharged 01/22. CONDITION AT DISCHARGE: Improved. REVIEW OF SYSTEMS: Prior to discharge: Hard of hearing. No CV, , pulmonary, eye system symptoms on review. MENTAL STATUS EXAM: Oriented to himself and situation. Speech has some latency, coherent. Abstraction fair, computation impaired, language function intact, attention span short. Mood and affect, remained less labile, less depressed, psychosis seems to have subsided. No suicidal or homicidal ideation at discharge. FINAL DIAGNOSES: Major depressive disorder with psychotic features; major neurocognitive disorder, early Alzheimer, vascular with delusion, depression; anxiety disorder, unspecified; impulse control disorder, unspecified; hard of hearing; trigeminal neuralgia; status post urinary tract infection. Rest unchanged from admission. DISCHARGE MEDICATIONS: Please refer to the MRAD. DISCHARGE INSTRUCTIONS: Outpatient psychiatric and medical followup at the alf. Time for discharge day management greater than 30 minutes. AMELIA PRAJAPATI MD DR: ANJELICA/jolanta JOB#: [id number] / [id number]
== END 2020-01-23 11:00 | DRG 885 ==
LOC: GEROPSY 16:45
PROVIDERS: ADMIT Psychiatry & Neurology Psychiatry; ATTEND Psychiatry & Neurology Psychiatry
DX: F33.3 Major depressive disorder, recurrent, severe with psychotic symptoms (principal); N39.0 Urinary tract infection, site not specified; G31.84 Mild cognitive impairment of uncertain or unknown etiology; E78.5 Hyperlipidemia, unspecified; F41.1 Generalized anxiety disorder; F63.9 Impulse disorder, unspecified; G50.0 Trigeminal neuralgia; H91.90 Unspecified hearing loss, unspecified ear; Z79.899 Other long term (current) drug therapy; Z81.1 Family history of alcohol abuse and dependence; Z91.19 Patient's noncompliance with other medical treatment and regimen; Z91.81 History of falling; Z20.828 Contact with and (suspected) exposure to other viral communicable diseases
CPT/HCPCS: 36415; 80053; 80061; 80156; 81001; 82306; 82607; 83036; 83540; 83550; 83735; 84436; 84443; 84480; 85025; 86592; 87077; 87086; 87186; 87426; J8597; 97110; 97116; 97530; 97535; U0003-CS

== ENCOUNTER 2020-05-01 21:46 | Emergency (ER) | payer MEDICARE ==
[~2020-05-01] VITALS: Ht 182.9 cm; Wt 89.1 kg
[~2020-05-01 21:46] MED LIST changes: +ACET325T9 PO; +BUPR-192 PO; +CEPH-264 PO; +FLUV25TA PO; +LACT1CAP19 PO; +MAG-95 PO; +METH113C10 TP; +OLAN5TAB99 PO; +QUET25TA PO
--- NOTE | 2020-05-01 21:54 | PHYS DOC ---
Past History Past Medical History: Arthritis, Constipation, Dementia, High Cholesterol, Hypertension, Other Additional Past Medical Histor: trigeminal neuralgia, chronic pains, spondylosis, BPH Past Surgical History: No Surgical History Smoking: Non-smoker Alcohol Use: None Adult General HPI HPI Patient is a 89-year-old male who [facility] for fall that occurred just prior to arrival. Mechanism of injury was mechanical ground- level fall without syncope or near syncope reported by patient, reports falling backwards and hitting posterior head on unknown object in his residence. Admits mild headache and neck pain. He is not on any blood thinner medications. There is a small laceration associated with the injury on posterior head that resulted in minimal bleeding and resolved without intervention shortly after injury. The re was no loss of consciousness, confusion, seizure, memory impairment, vomiting, numbness or weakness, no fever. Patient admits he remembers entirety of the event, states he was ambulating and lost his balance which she typically does, admits he was not using his assistive walking devices which [facility] at [facility]. He has history of dizziness per his medical chart but denies being dizzy prior to falling backwards, states " I just lost my footing I think". No known COVID-19 exposure, no fever, no chest pain, shortness of breath, abdominal pain, urinary symptoms, motor or sensory function changes past baseline, no reported neurologic deficits. Tetanus immunization status is up-to-date Review of Systems Review of Systems Fourteen body systems of review of systems have been reviewed. See HPI for pertinent positives and negative responses, other lopez all other systems are negative, non-pertinent or non-contributory Allergies Allergies Allergies Coded Allergies Type Severity Reaction Last Updated Verified enalaprilat Allergy Intermediate 01/19/20 Yes Physical Exam Physical Exam Constitutional: Pt is oriented to person, place, and time. Pt appears well-developed and well- nourished. HEENT: Head: Normocephalic and atraumatic. External ears unremarkable, negative morales sign Conjunctivae and EOM are normal. Pupils are equal, round, and reactive to light. Oropharynx is clear and dry 1 cm vertical laceration with mild hematoma present on posterior occiput without palpable abnormalities, crepitus or obvious depressions OP clear, no blood, no malocclusion, dentition intact Nares clear, no nasal septal hematoma Midface stable Neck: C-spine midline nontender, no step-offs Cardiovascular: Normal rate, regular rhythm and normal heart sounds. Pulmonary/Chest: Effort normal and breath sounds normal. No respiratory distress. No wheezes. CTA bilaterally Abdominal: Soft. Bowel sounds are normal. Pt exhibits no distension. There is no tenderness. Musculoskeletal: No bony tenderness to extremities, no deformities, full ROM extremities Chest wall stable Pelvis stable and non-tender No vertebral TTP and spine without stepoffs Neurological: Pt is alert and oriented to person, place, and time. Patient does have dementia Moving all extremities willfully, able to wiggle all fingers and toes Alert and oriented x 3 Sensation grossly intact Skin: Skin is warm and dry. No abrasions, no lacerations Psychiatric: Behavior is appropriate for situation Current Patient Data Vital Signs Vital Signs Date Time Temp Pulse Resp B/P (MAP) Pulse Ox O2 Delivery O2 Flow Rate FiO2 05/01/20 23:55 69 169/83 (111) 94 Room Air 05/01/20 21:46 97.6 18 EKG EKG [] Radiology/Procedures Radiology/Procedures EXAM: CT HEAD WITHOUT IV CONTRAST CLINICAL HISTORY: Reason: FALL POST HEAD, NO LOC, UNKNOWN COAGULATION / Spl. Instructions: / History: COMPARISON: None. TECHNIQUE: Routine CT of the head without contrast. Soft tissues and bone windows were reviewed. PQRS compliance statement - One or more of the following individualized dose reduction techniques were utilized for this study: 1. Automated exposure control 2. Adjustment of the mA and/or kV according to patient size 3. Use of iterative reconstruction technique FINDINGS: There is no evidence of hemorrhage, mass or extra-axial fluid collection. Scalp hematoma overlying the right posterior parietal and occipital region. Ramos-white differentiation is maintained with no evidence of edema. Subcortical, periventricular as well as deep white matter hypoattenuation likely changes of chronic small vessel disease. There is no mass effect or shift of the intracranial structures. The ventricles, basilar cisterns and cortical sulci are normal in size and configuration for the patients stated age. The cerebellum and brainstem are unremarkable. Changes of small right lateral suboccipital craniotomy. Otherwise, calvarium demonstrates no evidence of fracture or focal lesion. There is normal aeration of the visualized paranasal sinuses and mastoid air cells. The visualized portions of the orbits are normal. Atherosclerotic calcifications of the intracranial internal carotid and vertebral arteries is seen. IMPRESSION: No evidence for acute intracranial process. Right parieto-occipital scalp hematoma. White matter changes, likely chronic small vessel disease. EXAM: CT CERVICAL SPINE WITHOUT IV CONTRAST CLINICAL HISTORY: Reason: FALL POST HEAD, NO LOC, UNKNOWN COAGULATION / Spl. Instructions: / History: COMPARISON: CT 12/20/2019 TECHNIQUE: Helical CT of the cervical spine was performed. Axial, coronal and sagittal reformatted images were also performed. PQRS compliance statement - One or more of the following individualized dose reduction techniques were utilized for this study: 1. Automated exposure control 2. Adjustment of the mA and/or kV according to patient size 3. Use of iterative reconstruction technique FINDINGS: Decreased bone mineral density. Cervical vertebral body heights are preserved. Mild height loss of the T3 vertebral body, stable to 12/20/2019. Atlantodental degenerative changes are seen. Moderate C2-3 disc height loss. Moderate C5-6 and C6-7 disc height loss. Multilevel facet degenerative changes are seen. Small cystic structure seen within the subcutaneous soft tissues overlying the right C2-C3 region may represent sebaceous cysts. No spondylolisthesis. Vascular calcifications are seen. Lung apices are grossly clear. IMPRESSION: 1. Multilevel spondylosis as above 2. Negative acute cervical spine fracture or subluxation. 3. Age-indeterminate height loss of the T3 vertebral body may represent age- indeterminate compression fracture. However, this is grossly stable to 12/20/2019. Electronically signed by: Lawrence Raza MD (05/01/2020 10:54 PM) [facility] Heart Score HEART Score for Chest Pain: HEART Score for Chest Pain Response (Comments) Value History Slighlty/Non-Suspicious 0 Age > 65 2 Risk Factors >3 Risk Factors or Hx CAD 2 Total 4 Risk Factors: Risk Factors: DM, Current or recent (<one month) smoker, HTN, HLP, family history of CAD, obesity. Risk Scores: Risk Factors: DM, Current or recent (<one month) smoker, HTN, HLP, family history of CAD, obesity. Course & Med Decision Making Course & Med Decision Making Discussed with the patient all findings and diagnostic testing. I discussed most likely diagnosis of posterior scalp laceration and associated hematoma that did not require intervention status post fall. No indication for further diagnostic work-up in ER setting, no need for admission at present. Patient safe for discharge back to [facility] with ongoing supportive care advised and strict use of assistive walking devices every time he ambulates advised. I stressed need for close outpatient follow-up to review today's ER visit, [facility] is at [facility] and should be able to be seen within upcoming 72 hours for repeat evaluation. Strict return precautions were also discussed and written down for patient for [facility] providers to see. Patient knows to come back for repeat evaluation if concerning signs or symptoms present prior to outpatient follow- up. Appears to be at baseline health and ready for departure back to [facility] Dragon Disclaimer Dragon Disclaimer This electronic medical record was generated, in whole or in part, using a voice recognition dictation system. Departure Departure: Impression: Primary Impression: Fall Additional Impression: Hematoma of scalp Disposition: 01 DC HOME SELF CARE/HOMELESS Condition: STABLE Referrals: DAVION HAYS MD (PCP) Patient Instructions: Fall Prevention and Home Safety, Scalp Hematoma Additional Instructions: You were seen for a mechanical fall. Your symptoms should improve with continued supportive care, please discuss safety of utilizing Tylenol and/or NSAIDs for as needed pain control with your [facility] physician. You should return to the ED if you develop worsening pain, vision change, numbness, tingling, weakness, vomiting, fever, neck pain, or any other new or concerning symptoms. It was a pleasure to take care of you and I wish you the best going forward Problem Qualifiers MITCH BROOKS DO May 01, 2020 21:54
--- NOTE | 2020-05-01 22:57 | RAD ---
EXAM: CT HEAD WITHOUT IV CONTRAST CLINICAL HISTORY: Reason: FALL POST HEAD, NO LOC, UNKNOWN COAGULATION / Spl. Instructions: / History : COMPARISON: None. TECHNIQUE: Routine CT of the head without contrast. Soft tissues and bone windows were reviewed. PQRS compliance statement - One or more of the following individualized dose reduction techniques wer e utilized for this study: 1. Automated exposure control 2. Adjustment of the mA and/or kV according to patient size 3. Use of iterative reconstruction technique FINDINGS: There is no evidence of hemorrhage, mass or extra-axial fluid collection. Scalp hematoma overlying th e right posterior parietal and occipital region. Ramos-white differentiation is maintained with no evidence of edema. Subcortical, periventricular as w ell as deep white matter hypoattenuation likely changes of chronic small vessel disease. There is no mass effect or shift of the intracranial structures. The ventricles, basilar cisterns and cortical sulci are normal in size and configuration for the bobbi ents stated age. The cerebellum and brainstem are unremarkable. Changes of small right lateral suboccipital craniotomy. Otherwise, calvarium demonstrates no evidence of fracture or focal lesion. There is normal aeration of the visualized paranasal sinuses and mastoid air cells. The visualized portions of the orbits are normal. Atherosclerotic calcifications of the intracranial internal carotid and vertebral arteries is seen. IMPRESSION: No evidence for acute intracranial process. Right parieto-occipital scalp hematoma. White matter changes, likely chronic small vessel disease. EXAM: CT CERVICAL SPINE WITHOUT IV CONTRAST CLINICAL HISTORY: Reason: FALL POST HEAD, NO LOC, UNKNOWN COAGULATION / Spl. Instructions: / History : COMPARISON: CT 12/20/2019 TECHNIQUE: Helical CT of the cervical spine was performed. Axial, coronal and sagittal reformatted im ages were also performed. PQRS compliance statement - One or more of the following individualized dose reduction techniques wer e utilized for this study: 1. Automated exposure control 2. Adjustment of the mA and/or kV according to patient size 3. Use of iterative reconstruction technique FINDINGS: Decreased bone mineral density. Cervical vertebral body heights are preserved. Mild height loss of th e T3 vertebral body, stable to 12/20/2019. Atlantodental degenerative changes are seen. Moderate C2-3 disc height loss. Moderate C5-6 and C6-7 disc height loss. Multilevel facet degenerative changes are seen. Small cystic structure seen within the subcutaneous soft tissues overlying the right C2-C3 carter on may represent sebaceous cysts. No spondylolisthesis. Vascular calcifications are seen. Lung apices are grossly clear. IMPRESSION: 1. Multilevel spondylosis as above 2. Negative acute cervical spine fracture or subluxation. 3. Age-indeterminate height loss of the T3 vertebral body may represent age-indeterminate compressio n fracture. However, this is grossly stable to 12/20/2019. Electronically signed by: Lawrence Raza MD (05/01/2020 10:54 PM) [facility]
[2020-05-01 23:55] VITALS: BP 169/83
[2020-05-02] MEDS ORDERED: PRAM56OI TP (04:19)
[2020-05-02] MEDS ORDERED: QUET50TA80 PO (04:19)
[2020-05-02] MEDS ORDERED: LOPE2TAB27 PO (04:19)
[2020-05-02] MEDS ORDERED: AMOX875T PO (04:19)
== END 2020-05-01 23:55 | disposition home or self-care (01) ==
LOC: ER 21:46
DX: S01.01XA Laceration without foreign body of scalp, initial encounter (principal); M54.2 Cervicalgia; M19.90 Unspecified osteoarthritis, unspecified site; F03.90 Unspecified dementia, unspecified severity, without behavioral disturbance, psychotic disturbance, mood disturbance, and anxiety; E78.00 Pure hypercholesterolemia, unspecified; I10 Essential (primary) hypertension; G89.29 Other chronic pain; Z88.8 Allergy status to other drugs, medicaments and biological substances; W18.39XA Other fall on same level, initial encounter; Y93.89 Activity, other specified; Y92.89 Other specified places as the place of occurrence of the external cause; Y99.8 Other external cause status
CPT/HCPCS: 70450; 72125; 99285

== ENCOUNTER 2020-05-02 00:23 | Observation (INO) | payer MEDICARE ==
[~2020-05-02] VITALS: Ht 182.9 cm; Wt 96.6 kg
[~2020-05-02 00:23] MED LIST changes: -BUPR-192 PO; +BUPR150T7 PO; +MAG-124 PO; -MAG-95 PO
--- NOTE | 2020-05-02 00:41 | PHYS DOC ---
Past History Past Medical History: Arthritis, Constipation, Dementia, High Cholesterol, Hypertension, Other Additional Past Medical Histor: trigeminal neuralgia, chronic pains, spondylosis, BPH Past Surgical History: No Surgical History Smoking: Non-smoker Alcohol Use: None Adult General HPI HPI Patient is a 89-year-old male presenting via EMS for second time this evening for request of repeat evaluation by [facility]. Patient suffered an unwitnessed fall earlier this evening after ambulating without assistive walking devices in his residence falling backwards. He suffered a mild laceration that did not require repair on posterior scalp. He had CT head and cervical imaging performed that was grossly negative. He was at baseline health without any complaints and ready for discharge back to [facility]. On arriving to [facility], patient changed from a supine position to a standing position to ambulate back into bed. He voiced feelings of dizziness and reportedly got nauseous and suffered x1 episode of nonbloody nonbilious emesis. detention staff were concerned about these findings. These findings were communicated up chain of command to nursing supervisor bonding he was concern for potential concussion and advised patient be sent back to our facility for evaluation and admission. On arrival to our facility, patient asymptomatic. Patient states he has long history of dizziness, states this has been going on for "months ". He has no dizziness at present. He has no abdominal pain at present, no nausea, no other complaints at this time. Review of Systems Review of Systems Fourteen body systems of review of systems have been reviewed. See HPI for pertinent positives and negative responses, other lopez all other systems are negative, non-pertinent or non-contributory Allergies Allergies Allergies Coded Allergies Type Severity Reaction Last Updated Verified enalaprilat Allergy Intermediate 01/19/20 Yes Physical Exam Physical Exam General: Appears well, non toxic, and comfortable Skin: Warm, dry. Normal for ethnicity. HEENT: Patient has small 1 cm vertical superficial laceration that was seen and evaluated at our facility earlier in the evening that does not require repair, mild hematoma present surrounding area without palpable abnormalities or crepitus. PERRLA. Moist mucous membranes. Neck: Trachea midline. Normal ROM. Respiratory: Normal WOB. CTAB w/o w/r/r. No tachypnea. Cardiovascular: Regular rate and rhythm. Normal peripheral perfusion. No edema. Abdomen: Soft. Non tender. No distension. Bowel sounds present in all quadrants, no guarding or rebound, no surgical abdomen Back: Normal ROM. Musculoskeletal: No swelling or deformity. Neuro: Alert and oriented x 4. MAEE. GCS 15. Normal FNF. Negative pronator drift. Normal heel to cerda. Normal Jeanette. CN II-XII intact. Normal strength and sensation. Normal speech. Unsteady gait but this is at baseline for patient who has assistive walking devices at home but often forgets to utilize these Psych: Normal affect and mood. EKG EKG [] Radiology/Procedures Radiology/Procedures [] Heart Score HEART Score for Chest Pain: HEART Score for Chest Pain Response (Comments) Value History Slighlty/Non-Suspicious 0 Age > 65 2 Risk Factors >3 Risk Factors or Hx CAD 2 Total 4 Risk Factors: Risk Factors: DM, Current or recent (<one month) smoker, HTN, HLP, family history of CAD, obesity. Risk Scores: Risk Factors: DM, Current or recent (<one month) smoker, HTN, HLP, family history of CAD, obesity. Course & Med Decision Making Course & Med Decision Making Comprehensive history and physical examination performed, grossly benign. Discussed little utility in further diagnostic work-up in ER setting. I called [facility]'s [facility] and talk to care worker for patient. She voiced concern about patient's ability to stay at facility, states " if you send him back he will just keep falling and we will keep sending him back to you". She cannot quantify patient's reported emesis, it is unknown if it was nonbloody or nonbilious, "we just gave him a trash can but we do not know how much he threw up". States her nursing supervisor bonding was concerned about concussion and advised he come back to our ER for evaluation and admission. They do not feel comfortable having patient at their facility given he is a high fall risk and does not utilize his assistive walking device with ambulation. They feel his level of care is higher than what can be provided " tonight". clinical services assistant does not know if on-call physician was contacted to discuss case. Nonetheless, patient unable to safely ambulate and care for self at current [facility] facility, there is concern at his facility about ability for them to care for patient given his chronic dizziness and personal deficits. Unable to discharge back to fci at this time, at minimum plan for observation admission for [facility] safety evaluation, social and physical therapy evaluations as indicated and potential placement to other facility as indicated by hospitalist. I discussed case with Dr. Smith who agreed to admission of patient at [facility]. I updated patient on proposed plan of care and he was amenable, all questions and concerns addressed prior to ER transport to [facility] for admission Dragon Disclaimer Dragon Disclaimer This electronic medical record was generated, in whole or in part, using a voice recognition dictation system. Departure Departure: Impression: Primary Impression: History of unsteady gait Additional Impressions: History of dizziness History of recent fall Dementia Nausea and vomiting Disposition: ADMITTED INPT THIS HOSP Admitting Physician: Rick Smith Condition: STABLE Referrals: DAVION HAYS MD (PCP) Problem Qualifiers MITCH BROOKS DO May 02, 2020 00:41
[2020-05-02] MEDS ORDERED: ACETAMINOPHEN 325 MG TABLET PO PRN (02:45)
[2020-05-02] MEDS ORDERED: ONDANSETRON ODT 4 MG TAB.RAPDIS PO PRN (03:45)
--- NOTE | 2020-05-02 03:50 | NUR ---
Admission: The patient, EVELIO BALDERRAMA, 89 y/o, M admitted by PACO GILES MD, was given written information regarding hospital policies, unit procedures and contact persons. Pt arrived to room 111 via [facility] accompanied by [facility] and nursing sup. Pt here for gait instability, fall, dizziness. Pt reportedly fell around 2200 last night, while attempting to amb in his room without utilizing his walker. Pt fell backwards and hit his head on the door frame. Pt resides at [facility]. Pt was cleared in ED and sent back to facility, but when pt stood up from [facility] and attempted to get back in bed, pt became nauseous and vomited x1. Caregiver at [facility] instructed EMS to bring pt back to ED. Pt admitted for observation. Tele placed, showing NSR with rate in the 60's. Pt is pleasant, A/Ox2-3, forgetful and impulsive. Bed alarmed for safety. Pic taken of posterior head and placed in chart. Call light in reach. Home meds reviewed with REHAB CARE ASSISTANT at [facility]. Valuables were checked and logged. Left in room with pt.
[2020-05-02 04:10] VITALS: BP 167/94
[2020-05-02] MEDS ORDERED: LOPE2TAB27 PO (04:19)
[2020-05-02] MEDS ORDERED: QUET50TA80 PO (04:19)
[2020-05-02] MEDS ORDERED: PRAM56OI TP (04:19)
[2020-05-02] MEDS ORDERED: AMOX875T PO (04:19)
[2020-05-02 07:59] LABS: BASO % 0 % (0-3); EOS # 0.1 x10^3/uL (0.0-0.7); EOS % 2 % (0-3); HEMOGLOBIN 12.7 g/dL (13.0-17.5); LYMPH # 1.6 x10^3/uL (1.0-4.8); LYMPH % 25 % (24-48); MEAN CORPUSCULAR HEMOGLOBIN 32 pg (25-35); MEAN CORPUSCULAR HGB CONC 34 g/dL (31-37); MEAN CORPUSCULAR VOLUME 96 fL (79-100); MONO # 0.5 x10^3/uL (0.0-1.1); MONO % 8 % (0-9); NEUT # 4.1 x10^3uL (1.8-7.7); NEUT % 65 % (31-73); PLATELET COUNT 191 x10^3/uL (140-400); RED BLOOD COUNT 3.96 x10^6/uL (4.30-5.70); RED CELL DISTRIBUTION WIDTH 13.5 % (11.5-14.5); WHITE BLOOD COUNT 6.2 x10^3/uL (4.0-11.0)
[2020-05-02 08:12] LABS: ALBUMIN 3.5 g/dL (3.4-5.0); CALCIUM 8.6 mg/dL (8.5-10.1); GFR 70.5; POTASSIUM 4.2 mmol/L (3.5-5.1); TOTAL BILIRUBIN 0.4 mg/dL (0.2-1.0); TOTAL PROTEIN 7.1 g/dL (6.4-8.2)
[2020-05-02 10:45] VITALS: BP 118/75
--- NOTE | 2020-05-02 13:59 | SSS ---
ADMIT DATE: 05/02/2020 HISTORY OF PRESENT ILLNESS: The patient is an 89-year-old male patient, who presented to the Emergency Room by EMS for second time this evening for request of repeat evaluation by the assisted. The patient suffered an unwitnessed fall earlier yesterday evening after ambulating without assistive walking devices in his residence, falling backward. He suffered a mild laceration that did not require repair on the posterior scalp. He had a CT scan of the head and cervical spine performed that was grossly negative. He was at baseline health without any complaints and ready for discharge back to assisted. On arrival to the assisted, the patient changed from supine position to a standing position to ambulate back into bed. He voiced feelings of dizziness and reportedly got nauseous and suffered one episode of nonbloody, nonbilious emesis. senior care staffs were concerned about these findings. These findings were communicated ___ command to nursing iron and steel work supervisor, who has concern for potential concussion and advised the patient to be sent back to our facility for evaluation and admission. On arrival to our facility, the patient was asymptomatic. The patient states that he has long history of dizziness. States that it has been going on for months. He has no dizziness at present. He has no abdominal pain at present. No nausea. No other complaints at this time and was basically admitted for observation because of nausea and vomiting, unsteady gait and history of recent fall. PAST MEDICAL HISTORY: Significant for hard of hearing, hyperlipidemia, hypertension, benign prostatic hypertrophy, trigeminal neuralgia and frequent falls with repeat CT head that are unremarkable, unstable gait. PAST SURGICAL HISTORY: Unremarkable. FAMILY HISTORY: Noncontributory. Apparently 2 of his sons committed suicide, but his information has to be correlated with the family. SOCIAL HISTORY: He is a resident at [facility]. He apparently has a Ph.D. 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 He does not smoke, drink alcohol or use any recreational drugs. ALLERGIES: HE IS ALLERGIC TO VASOTEC. PHYSICAL EXAMINATION: GENERAL: On arrival to the Emergency Room, he looked well and was clearly in no apparent respiratory distress. No pallor, jaundice, cyanosis or thyromegaly. No jugular venous distention or limb edema. VITAL SIGNS: Her heart rate was 72, blood pressure 159/88, temperature was 98.2, respiratory rate was 18 and oxygen saturation was 97% on room air. HEAD, EYES, EARS, NOSE AND THROAT: Showed normocephalic, atraumatic. NECK: Supple. HEART: Showed normal first and second heart sounds. No gallop, rub or murmur. CHEST: Clear to auscultation. No crepitation or rhonchi. ABDOMEN: Distended, soft, nontender. No guarding or rigidity. No organomegaly. All hernial orifice intact. Bowel sounds normal. NEUROLOGIC: He was demented obviously, but without any obvious lateralizing sign. LABORATORY DATA: He has lab work done, which showed white cell count of 6200, hemoglobin 12.7, hematocrit 38, MCV 96, and platelet count of 191,000 with normal manual differential. Serum sodium was 139, potassium 4.2, chloride 104, bicarbonate 26, anion gap of 9, BUN 18, creatinine 1, estimated GFR was 70 mL per minute, his glucose 111, calcium was 8.6. Total bilirubin, AST, ALT, alkaline phosphatase were normal. Total protein 7.1, albumin was 3.5. He apparently had a CT scan of the head and cervical spine, which basically showed no evidence of acute intracranial process, right parietal occipital scalp hematoma white matter changes, likely chronic small vessel disease. CT scan of the cervical spine showed multilevel spondylosis as above, negative acute cervical spine fracture or subluxation. Age indeterminate height loss of T3 vertebral body, may represent age indeterminate compression fracture; however, this is grossly stable since 12/20/2019. ASSESSMENT AND PLAN: The patient was admitted and observed overnight. He was seen by the physical therapist and was able to walk around multiple times. We spoke with his son regarding admitting him to perhaps [facility] to continue the process of rehabilitation there, but his son wanted him to go back to assisted living and therefore, he was discharged back to [facility]. DEBORAH HAYDEN MD DR: VENUS/jolanta JOB#: [id number] / [id number]
--- NOTE | 2020-05-02 14:31 | NUR ---
PATIENT IS DISCHARGED HOME TO [facility]. PT IS STABLE AT TIME OF DISCHARGE. TELE REMOVED AND IV REMOVED EARLIER IN SHIFT BY PT. PT IS GIVEN A COPY OF ALL DISCHARGE AND FOLLOW UP INSTRUCTIONS. PT WAS ESCORTED OFF UNIT ACCOMPANIED BY EMS.
[2020-05-02 14:32] VITALS: BP 152/78
== END 2020-05-02 14:31 | disposition home or self-care (01) ==
LOC: ER 00:23 → 1 SOUTH 02:50
PROVIDERS: ADMIT Hospitalist; ATTEND Internal Medicine
DX: S01.01XA Laceration without foreign body of scalp, initial encounter (principal); I10 Essential (primary) hypertension; N40.0 Benign prostatic hyperplasia without lower urinary tract symptoms; F03.90 Unspecified dementia, unspecified severity, without behavioral disturbance, psychotic disturbance, mood disturbance, and anxiety; E78.00 Pure hypercholesterolemia, unspecified; E78.5 Hyperlipidemia, unspecified; G50.0 Trigeminal neuralgia; M19.90 Unspecified osteoarthritis, unspecified site; K59.00 Constipation, unspecified; F02.80 Dementia in other diseases classified elsewhere, unspecified severity, without behavioral disturbance, psychotic disturbance, mood disturbance, and anxiety; R42 Dizziness and giddiness; R11.2 Nausea with vomiting, unspecified; R26.9 Unspecified abnormalities of gait and mobility; W19.XXXA Unspecified fall, initial encounter; Y93.89 Activity, other specified; Y92.89 Other specified places as the place of occurrence of the external cause; Y99.8 Other external cause status
CPT/HCPCS: 36415; 80053; 85025; 97530; 99284; G0378; G0379

== ENCOUNTER 2020-05-06 21:33 | Emergency (ER) | payer MEDICARE ==
[~2020-05-06] VITALS: Ht 182.9 cm; Wt 98.0 kg
[~2020-05-06 21:33] MED LIST changes: +AMOX875T PO; +BUPR150T21 PO; -BUPR150T7 PO; +PRAM56OI TP; +QUET50TA80 PO
--- NOTE | 2020-05-06 21:37 | PHYS DOC ---
Past History Past Medical History: Arthritis, Constipation, Dementia, High Cholesterol, Hypertension, Other Additional Past Medical Histor: trigeminal neuralgia, chronic pains, spondylosis, BPH Past Surgical History: No Surgical History Smoking: Non-smoker Alcohol Use: None Adult General HPI HPI Patient is a 89-year-old male who presents via EMS for fall. Onset of fall was shortly prior to arrival while at snf. Patient reports fall was mechanical in nature, states "it was my fault". Reports attempting to ambulate without assistive walking devices. States he tripped on his feet and fell backwards hitting his head. He is unsure if he lost consciousness. Fall was not witnessed by a snf staff, they tended to him afterwards and are unsure if he lost consciousness. On evaluation patient reported to snf staff that his right hip hurt. As such, EMS was subsequently called and transported patient to our facility for evaluation. He is not on any blood thinners. This is his third visit at our ER for falls within past 7 days. He was recently discharged from our facility after concern that current snf could not provide level of care and monitoring patient was now requiring. At time of last admission, snf stated "we just cannot take care of him... If you send him back here we will just keep sending him back". Review of Systems Review of Systems Fourteen body systems of review of systems have been reviewed. See HPI for pertinent positives and negative responses, other lopez all other systems are negative, non-pertinent or non-contributory Allergies Allergies Allergies Coded Allergies Type Severity Reaction Last Updated Verified enalaprilat Allergy Intermediate 01/19/20 Yes Physical Exam Physical Exam Constitutional: Pt is oriented to person, place and year but not time. GCS 15. No acute distress HEENT: Head: Normocephalic. Patient has crusted blood and mild hematoma over posterior occiput. Patient has reaggravation of minor laceration that was previously evaluated and did not meet criteria for closure. Hemostasis achieved prior to arrival. Patient has dried blood on posterior occiput and in here, hard to differentiate if this was caused from injury today or recent injury from May 02, 2020 TMs clear, no hemotympanum Conjunctivae and EOM are normal. Pupils are equal, round, and reactive to light. Oropharynx is clear and dry No hematomas or lacerations or abrasions to face or scalp OP clear, no blood, no malocclusion, dentition intact Nares clear, no nasal septal hematoma Midface stable Neck: C-spine midline nontender, no step-offs Cardiovascular: Normal rate, regular rhythm and normal heart sounds. Pulmonary/Chest: Effort normal and breath sounds normal. No respiratory distress. No wheezes. CTA bilaterally Abdominal: Soft. Bowel sounds are normal. Pt exhibits no distension. There is no tenderne ss. Musculoskeletal: No bony tenderness to extremities, no deformities, full ROM extremities Chest wall stable Pelvis stable and non-tender, unable to recall which hip he reported hurt status post fall No vertebral TTP and spine without stepoffs Neurological: Moving all extremities willfully, able to wiggle all fingers and toes Alert and oriented x 3 Motor and sensory function intact No saddle anesthesia No bladder or bowel incontinence Skin: Skin is warm and dry. No abrasions, no lacerations Psychiatric: Behavior is appropriate for situation Patient has underlying dementia and at baseline Current Patient Data Vital Signs Vital Signs Date Time Temp Pulse Resp B/P (MAP) Pulse Ox O2 Delivery O2 Flow Rate FiO2 05/06/20 23:11 80 16 157/76 (103) 98 05/06/20 22:39 97.7 70 16 205/79 (121) 96 Room Air EKG EKG [] Radiology/Procedures Radiology/Procedures Exam: CT head INDICATION: Unwitnessed fall, hitting back of head TECHNIQUE: Sequential axial images through the head were obtained without the administration of IV contrast. Comparisons: 05/01/2020 FINDINGS: No focal parenchymal lesion or hemorrhage is identified. There is no midline shift or sulcal effacement. Patchy hypodensity in the periventricular white matter. No acute vascular territory infarction is identified. Morris-white distinction is preserved. The ventricular system is within normal limits without compression hy drocephalus. The basal cisterns are well maintained. Extra cranial soft tissue scalp contusion/hematoma in the right posterior parietal region The visualized portions of the paranasal sinuses and mastoid air cells are well-pneumatized. No acute fractures. IMPRESSION: Extracranial soft tissue scalp contusion/hematoma in the right posterior parietal region that underlying osseous or intracranial abnormality. Exposure: One or more of the following in the visualized dose reduction techniques were utilized for this examination: 1. Automated exposure control 2. Adjustment of the MA and/or KV according to patient size Use of iterative of reconstructive technique Electronically signed by: Cheyenne Vasquez MD (05/06/2020 10:38 PM) [facility] Exam: Chest one view INDICATION: Unwitnessed fall, loss of consciousness TECHNIQUE: Frontal view of the chest Comparisons: None FINDINGS: The cardiomediastinal silhouette and pulmonary vessels are within normal limits. Strandy opacities at the left lung base. No pleural effusion. IMPRESSION: Left basilar atelectasis. Electronically signed by: Cheyenne Vasquez MD (05/06/2020 10:38 PM) [facility] Exam: Pelvis 1 view INDICATION: Unwitnessed fall, loss of consciousness TECHNIQUE: Frontal view of the pelvis Comparisons: None FINDINGS: Diffuse osteopenia. Note displaced fractures are identified. Left hip fixation is seen. Joint spaces are well-maintained. Soft tissues are unremarkable. IMPRESSION: Diffuse ostomy without discrete fracture identified. If the Patient is acutely unable to bear weight an MRI to rule out occult hip fracture is recommended. Electronically signed by: Cheyenne Vasquez MD (05/06/2020 10:39 PM) [facility] Heart Score HEART Score for Chest Pain: HEART Score for Chest Pain Response (Comments) Value History Slighlty/Non-Suspicious 0 Age < 45 0 Risk Factors No Risk Factors 0 Total 0 Risk Factors: Risk Factors: DM, Current or recent (<one month) smoker, HTN, HLP, family history of CAD, obesity. Risk Scores: Risk Factors: DM, Current or recent (<one month) smoker, HTN, HLP, family history of CAD, obesity. Course & Med Decision Making Course & Med Decision Making Discussed with the patient all findings and diagnostic testing. I discussed most likely diagnosis of mechanical fall and patient who is a high fall risk and repeatedly does not use assistive home devices with ambulation. I reviewed findings of negative head and chest imaging. I disclose no obvious bony abnormalities based on pelvis radiographs, I disclosed radiologist interpretation about potential need for MRI but given that patient was ambulatory with assistance while in our ER, I do not feel this is emergent nor necessary at this time. I discussed recurrent falls with patient, he states he feels safe at his current snf and has adequate level of care but admits "it was my fault" in regards to the fall stating that he tried to get up and ambulate without using his walker. I offered patient admission but he declined and wanted to go back to the snf, I feel this is appropriate. Patient has good access to snf physician and so, I stressed need for close outpatient follow-up to review today's ER visit. Strict return precautions were also discussed at length with good understanding by patient. Patient voiced understanding and agreement with the plan. Patient knows to come back for repeat evaluation if concerning signs or symptoms present prior to outpatient follow- up. Hemodynamically stable, ambulatory and well-appearing at time of disposition with paperwork for snf to read and utilize in efforts to prevent further falls in a patient who is a high fall risk. Dragon Disclaimer Dragon Disclaimer This electronic medical record was generated, in whole or in part, using a voice recognition dictation system. Departure Departure: Impression: Primary Impression: Accident due to mechanical fall without injury Additional Impressions: Recurrent falls Dementia Disposition: DC HOME SELF CARE/HOMELESS Condition: STABLE Referrals: DAVION HAYS MD (PCP) Patient Instructions: Fall Prevention and Home Safety Additional Instructions: You were seen at our facility for a mechanical fall suffered at home. You admit you did not use your assistive walking devices nor call for help to assist with ambulation as you have been instructed to do so numerous times. As discussed today, your physical examination was grossly unremarkable. You have a mild hematoma on the back of your head, there is no significant laceration or other injury requiring ER intervention. You also had imaging of your head, chest and pelvis performed which show no obvious bone breaks or bleeds. You voiced hip pain of unknown hip while at snf but have been symptom-free and ambulatory while in our ER. You feel you are safe to go home, you have all the resources you need at your snf. Please ensure you utilize your assisti ve walking devices and ask staff to assist with ambulation if you do not plan to use your walking devices to prevent falls like this in the future. It was a pleasure to take care of you and I wish you the best going forward Problem Qualifiers MITCH BROOKS DO May 06, 2020 21:37
--- NOTE | 2020-05-06 22:40 | RAD ---
Exam: CT head INDICATION: Unwitnessed fall, hitting back of head TECHNIQUE: Sequential axial images through the head were obtained without the administration of IV co ntrast. Comparisons: 05/01/2020 FINDINGS: No focal parenchymal lesion or hemorrhage is identified. There is no midline shift or sulcal effaceme nt. Patchy hypodensity in the periventricular white matter. No acute vascular territory infarction is mahin ntified. Morris-white distinction is preserved. The ventricular system is within normal limits without compression hydrocephalus. The basal cisterns are well maintained. Extra cranial soft tissue scalp contusion/hematoma in the right posterior parietal region The visuali zed portions of the paranasal sinuses and mastoid air cells are well-pneumatized. No acute fractures. IMPRESSION: Extracranial soft tissue scalp contusion/hematoma in the right posterior parietal region that underly ing osseous or intracranial abnormality. Exposure: One or more of the following in the visualized dose reduction techniques were utilized for this examination: 1. Automated exposure control 2. Adjustment of the MA and/or KV according to patient size Use of iterative of reconstructive technique Electronically signed by: Cheyenne Vasquez MD (05/06/2020 10:38 PM) [facility]
--- NOTE | 2020-05-06 22:41 | RAD ---
Exam: Chest one view INDICATION: Unwitnessed fall, loss of consciousness TECHNIQUE: Frontal view of the chest Comparisons: None FINDINGS: The cardiomediastinal silhouette and pulmonary vessels are within normal limits. Strandy opacities at the left lung base. No pleural effusion. IMPRESSION: Left basilar atelectasis. Electronically signed by: Cheyenne Vasquez MD (05/06/2020 10:38 PM) [facility]
--- NOTE | 2020-05-06 22:42 | RAD ---
Exam: Pelvis 1 view INDICATION: Unwitnessed fall, loss of consciousness TECHNIQUE: Frontal view of the pelvis Comparisons: None FINDINGS: Diffuse osteopenia. Note displaced fractures are identified. Left hip fixation is seen. Joint spaces are well-maintained. Soft tissues are unremarkable. IMPRESSION: Diffuse ostomy without discrete fracture identified. If the Patient is acutely unable to bear weight an MRI to rule out occult hip fracture is recommended. Electronically signed by: Cheyenne Vasquez MD (05/06/2020 10:39 PM) [facility]
[2020-05-06 23:11] VITALS: BP 157/76
== END 2020-05-07 00:01 | disposition home or self-care (01) ==
LOC: ER 21:33
DX: S00.03XA Contusion of scalp, initial encounter (principal); F03.90 Unspecified dementia, unspecified severity, without behavioral disturbance, psychotic disturbance, mood disturbance, and anxiety; R29.6 Repeated falls; M19.90 Unspecified osteoarthritis, unspecified site; E78.00 Pure hypercholesterolemia, unspecified; I10 Essential (primary) hypertension; G89.29 Other chronic pain; Z88.8 Allergy status to other drugs, medicaments and biological substances; W01.0XXA Fall on same level from slipping, tripping and stumbling without subsequent striking against object, initial encounter; Y93.89 Activity, other specified; Y92.89 Other specified places as the place of occurrence of the external cause; Y99.8 Other external cause status
CPT/HCPCS: 70450; 71045; 72170; 99284

== ENCOUNTER 2020-05-12 04:53 | Emergency (ER) | payer MEDICARE ==
[~2020-05-12] VITALS: Ht 182.9 cm; Wt 98.5 kg
[~2020-05-12 04:53] MED LIST changes: -BUPR150T21 PO; +BUPR150T7 PO
--- NOTE | 2020-05-12 05:46 | PHYS DOC ---
Past History Past Medical History: Anxiety, Dementia, Depression, Hypertension Additional Past Medical Histor: trigeminal neuralgia, chronic pains, spondylosis, BPH (MELVA FORREST MD) Past Surgical History: No Surgical History (MELVA FORREST MD) Smoking: Non-smoker Alcohol Use: None (MELVA FORREST MD) Adult General Chief Complaint Chief Complaint: MECHANICAL FALL HPI HPI Patient is an 89-year-old male with a past medical history of dementia who presents from his nursing facility with a chief complaint of fall. Per patient and nursing facility he was getting out of bed to use the restroom and did not use his walker and fell backwards onto his butt and back. Patient states he thinks he hit his head on the floor lightly but did not lose consciousness. Denies syncope, headache, changes in vision, neck pain, chest pain, shortness of breath, abdominal pain, nausea, vomiting. Does endorse low back pain, 5 out of 10, dull and achy in nature right after the fall. Also endorses some scrapes/abrasions on forearms. (MELVA FORREST MD) Review of Systems Review of Systems Constitutional: Denies fever or chills [] Eyes: Denies change in visual acuity, redness, or eye pain [] HENT: Denies nasal congestion or sore throat [] Respiratory: Denies cough or shortness of breath [] Cardiovascular: No additional information not addressed in HPI [] GI: Denies abdominal pain, nausea, vomiting, bloody stools or diarrhea [] : Denies dysuria or hematuria [] Musculoskeletal: Endorses midline low back pain Integument: Endorses abrasions on forearms bilaterally Neurologic: Denies headache, syncope, numbness/weakness/tingling. All other systems were reviewed and found to be within normal limits, except as documented in this note. (MELVA FORREST MD) Allergies Allergies Allergies Coded Allergies Type Severity Reaction Last Updated Verified enalaprilat Allergy Intermediate 01/19/20 Yes (MELVA FORREST MD) Physical Exam Physical Exam Constitutional: Well developed, well nourished, no acute distress, non-toxic appearance. [] HENT: Patient has an old abrasion/contusion on posterior scalp, bilateral external ears normal, no hemotympanum, oropharynx moist, no oral exudates, nose normal. [] Eyes: PERRLA, EOMI, conjunctiva normal, no discharge. [] Neck: Normal range of motion, no tenderness, supple, no stridor. [] Cardiovascular:Heart rate regular rhythm Lungs & Thorax: Bilateral breath sounds clear to auscultation [] Abdomen: Bowel sounds normal, soft, no tenderness, no masses, no pulsatile masses. [] Skin: Multiple bilateral forearm abrasions, otherwise warm, dry, no erythema, no rash. [] Back: Lumbar midline tenderness with no signs of deformity or bruising Extremities: No tenderness, no cyanosis, no clubbing, ROM intact, no edema. [] Neurologic: Patient alert and oriented to person and place but had trouble with time. Able to move all extremities without issue. Sensation grossly intact. Cranial nerves intact. Able to stand, but cannot walk without his walker. Psychologic: Affect normal, judgement normal, mood normal. [] (MELVA FORREST MD) Current Patient Data Vital Signs Vital Signs Date Time Temp Pulse Resp B/P (MAP) Pulse Ox O2 Delivery O2 Flow Rate FiO2 05/12/20 05:08 97.5 56 18 197/97 (130) 98 Room Air (MELVA FORREST MD) EKG EKG [] (MELVA FORREST MD) Radiology/Procedures Radiology/Procedures [] (MELVA FORREST MD) Radiology/Procedures INDICATION: Reason: fall / Spl. Instructions: / History: . COMPARISON: May 06, 2020 TECHNIQUE: Axial CT images obtained through the head. One or more of the following individualized dose reduction techniques were utilized for this examination: 1. Automated exposure control; 2. Adjustment of the mA and/or kV according to patient size; 3. Use of iterative reconstruction technique. FINDINGS: Scalp cephalohematoma. Scattered foci of low density of the white matter. Nonspecific but can be seen with chronic small vessel ischemic disease. Prominence of ventricles and sulci which can be seen with age-related volume loss. Right-sided extra-axial hemorrhage measuring up to 4 mm in thickness. A significant amount of mass effect is not seen. There is approximately 1 mm of midline shift to the left but this was seen on prior as well. IMPRESSION: * Interval development of right-sided extra-axial hemorrhage which may be subdural in nature without a significant amount of mass effect at this time. Report called to the emergency department at 6:18 AM. * Scalp cephalohematoma. Electronically signed by: Celio Gastelum MD (05/12/2020 6:20 AM) [id number] INDICATION: Reason: fall / Spl. Instructions: / History: . COMPARISON: December 20, 2019 TECHNIQUE: Axial CT images obtained through the lumbar spine. One or more of the following individualized dose reduction techniques were uti lized for this examination: 1. Automated exposure control; 2. Adjustment of the mA and/or kV according to patient size; 3. Use of iterative reconstruction technique. FINDINGS: Mild retrolisthesis of L3 on 4. Degenerative changes throughout the lumbar spine with disc osteophyte complexes as well as facet hypertrophy with central canal and neural foraminal stenosis. Mild grade 1 anterolisthesis of L2 on 3. Osseous demineralization. Severe calcific atherosclerosis. Bilateral renal lesions including one on the left that does not measure as simple density measuring 22 mm. IMPRESSION: * Osseous demineralization limits evaluation but no definite fracture line is seen. * Degenerative changes throughout the spine with multilevel central canal and neural foraminal stenosis. * Calcific atherosclerosis. * Bilateral renal lesions including one on the left that does not measure as a simple cyst at the partially visualized abdomen. Not formally evaluated on this exam. Electronically signed by: Celio Gastelum MD (05/12/2020 6:27 AM) [id number] (MITCH BROOKS DO) Heart Score Risk Factors: Risk Factors: DM, Current or recent (<one month) smoker, HTN, HLP, family history of CAD, obesity. Risk Scores: Risk Factors: DM, Current or recent (<one month) smoker, HTN, HLP, family history of CAD, obesity. (MELVA FORREST MD) Course & Med Decision Making Course & Med Decision Making Patient is an 89-year-old male that [facility]. Vital signs notable for hypertension. Physical exam noted above. Patient denied need for pain medication at this time and stated he would like something to eat. According to his chart, this appears to be approximately the fifth or sixth visit over the past year for falls. Patient appears to be at high risk despite bleeding in the nursing facility and supposedly using his walker. CT of the head obtained as patient did endorse hitting his head, and is on aspirin and is at high risk for ICH. CT of the lumbar spine also indicated. Midline lumbar spine tenderness after the fall. Patient does seem to have some degree of dementia as he answers the questions fairly appropriately but slowly. Imaging pending. Patient handed off to day team. (MELVA FORREST MD) Course & Med Decision Making I received signout from off going physician. I know patient well, I personally repeated portions of history and physical examination I discussed concerning CT head findings with radiologist for right sided subdural hemorrhage without mass-effect etc. At present, patient hemodynamically stable and at baseline mentation Patient at baseline mentation but appropriate precautions for patient with subdural hemorrhage in place I contacted hospitalist at [facility] who accepted patient transfer. I also contacted neurosurgery team at [facility] to notify of consultation and admission. They agreed for transfer to ICU for continued medical management and surgical intervention as indicated I updated patient on proposed plan of care that involve transfer to [facility] for further medical management and if indicated surgical intervention, he was amenable. All questions and concerns addressed prior to ER transportation to [facility] Critical Care Time This patient required critical care. Due to the fact that the patient required a significant amount of one on one physician - patient contact time, ordering and review of studies, arranging urgent treatment with development of a management plan, evaluation of patients response to treatment with frequent reassessments, and discussions with other providers this patient required 45 minutes of critical care time. Critical care time was indicated due to the inherent instability and/or potential for instability in this patient. The critical care time that is allocated to this patient is above and beyond any time spent on any other billable procedures performed on this patient. (MITCH BROOKS DO) Dragon Disclaimer Dragon Disclaimer This electronic medical record was generated, in whole or in part, using a voice recognition dictation system. (MELVA FORREST MD) Departure Departure: Impression: Primary Impression: Subdural hemorrhage Additional Impressions: Recurrent falls Dementia Disposition: 02 DC[facility]TRF [facility] Admitting Physician: Other (dr bashir) (MITCH BROOKS DO) Condition: STABLE Referrals: DAVION HAYS MD (PCP) Problem Qualifiers MELVA FORREST MD May 12, 2020 05:46 MITCH BROOKS DO May 12, 2020 07:16
--- NOTE | 2020-05-12 06:23 | RAD ---
INDICATION: Reason: fall / Spl. Instructions: / History: . COMPARISON: May 06, 2020 TECHNIQUE: Axial CT images obtained through the head. One or more of the following individualized dose reduction techniques were utilized for this examinat ion: 1. Automated exposure control; 2. Adjustment of the mA and/or kV according to patient size; 3 . Use of iterative reconstruction technique. FINDINGS: Scalp cephalohematoma. Scattered foci of low density of the white matter. Nonspecific but can be seen with chronic small ves cem ischemic disease. Prominence of ventricles and sulci which can be seen with age-related volume loss. Right-sided extra-axial hemorrhage measuring up to 4 mm in thickness. A significant amount of mass ef fect is not seen. There is approximately 1 mm of midline shift to the left but this was seen on prior as well. IMPRESSION: * Interval development of right-sided extra-axial hemorrhage which may be subdural in nature without a significant amount of mass effect at this time. Report called to the emergency department at 6:18 AM. * Scalp cephalohematoma. Electronically signed by: Celio Gastelum MD (05/12/2020 6:20 AM) [id number]
--- NOTE | 2020-05-12 06:34 | RAD ---
INDICATION: Reason: fall / Spl. Instructions: / History: . COMPARISON: December 20, 2019 TECHNIQUE: Axial CT images obtained through the lumbar spine. One or more of the following individualized dose reduction techniques were utilized for this examinat ion: 1. Automated exposure control; 2. Adjustment of the mA and/or kV according to patient size; 3 . Use of iterative reconstruction technique. FINDINGS: Mild retrolisthesis of L3 on 4. Degenerative changes throughout the lumbar spine with disc osteophyte complexes as well as facet hype rtrophy with central canal and neural foraminal stenosis. Mild grade 1 anterolisthesis of L2 on 3. Osseous demineralization. Severe calcific atherosclerosis. Bilateral renal lesions including one on the left that does not mo ure as simple density measuring 22 mm. IMPRESSION: * Osseous demineralization limits evaluation but no definite fracture line is seen. * Degenerative changes throughout the spine with multilevel central canal and neural foraminal steno sis. * Calcific atherosclerosis. * Bilateral renal lesions including one on the left that does not measure as a simple cyst at the pa rtially visualized abdomen. Not formally evaluated on this exam. Electronically signed by: Celio Gastelum MD (05/12/2020 6:27 AM) [id number]
--- NOTE | 2020-05-12 06:34 | NUR ---
PAGED DR. LAI AT [phone]
[2020-05-12 06:47] LABS: BASO % 1 % (0-3); EOS # 0.1 x10^3/uL (0.0-0.7); EOS % 3 % (0-3); HEMATOCRIT 37.4 % (39.0-53.0); HEMOGLOBIN 12.5 g/dL (13.0-17.5); LYMPH # 1.5 x10^3/uL (1.0-4.8); LYMPH % 32 % (24-48); MEAN CORPUSCULAR HEMOGLOBIN 32 pg (25-35); MEAN CORPUSCULAR HGB CONC 34 g/dL (31-37); MEAN CORPUSCULAR VOLUME 96 fL (79-100); MONO # 0.4 x10^3/uL (0.0-1.1); MONO % 9 % (0-9); NEUT # 2.6 x10^3uL (1.8-7.7); NEUT % 55 % (31-73); PLATELET COUNT 202 x10^3/uL (140-400); RED BLOOD COUNT 3.91 x10^6/uL (4.30-5.70); RED CELL DISTRIBUTION WIDTH 13.5 % (11.5-14.5); WHITE BLOOD COUNT 4.7 x10^3/uL (4.0-11.0)
[2020-05-12 07:03] LABS: CALCIUM 8.4 mg/dL (8.5-10.1); CREATININE 0.9 mg/dL (0.7-1.3); GFR 79.6; POTASSIUM 4.1 mmol/L (3.5-5.1)
[2020-05-12 07:05] LABS: ALBUMIN 3.4 g/dL (3.4-5.0); TOTAL BILIRUBIN 0.2 mg/dL (0.2-1.0); TOTAL PROTEIN 6.9 g/dL (6.4-8.2)
[2020-05-12 08:13] VITALS: BP 180/84
== END 2020-05-12 08:20 | disposition short-term general hospital (02) ==
LOC: ER 04:53
DX: S06.5X9A Traumatic subdural hemorrhage with loss of consciousness of unspecified duration, initial encounter (principal); F41.9 Anxiety disorder, unspecified; F03.90 Unspecified dementia, unspecified severity, without behavioral disturbance, psychotic disturbance, mood disturbance, and anxiety; I10 Essential (primary) hypertension; G89.29 Other chronic pain; F32.9 Major depressive disorder, single episode, unspecified; S50.812A Abrasion of left forearm, initial encounter; S50.811A Abrasion of right forearm, initial encounter; M54.5 Low back pain; W18.39XA Other fall on same level, initial encounter; Y93.89 Activity, other specified; Y92.89 Other specified places as the place of occurrence of the external cause; Y99.8 Other external cause status
CPT/HCPCS: 36415; 70450; 72131; 80053; 85025; 85610; 85730; 99285-25; 99291-25

== ENCOUNTER 2020-05-25 20:44 | Emergency (ER) | payer MEDICARE ==
[~2020-05-25] VITALS: Ht 182.9 cm; Wt 98.5 kg
[2020-05-25 21:02] VITALS: BP 118/64
--- NOTE | 2020-05-25 21:05 | PHYS DOC ---
Past History Past Medical History: Anxiety, Dementia, Depression, Hypertension, UTI Additional Past Medical Histor: trigeminal neuralgia, chronic pains, spondylosis, BPH, hx of Subdural Hemat Past Surgical History: No Surgical History Smoking: Non-smoker Alcohol Use: None General Adult EDM: Chief Complaint: ALTERED MENTAL STATUS HPI: HPI: ".. I don't know I just fell off the pot.. My Lt hip.. and leg hurts... they said I was not acting right...".. Patient is a 89 year old male who presents with above hx of fall and mental status change and fall from commode while attempting to urinate and defecate. Patient is a resident of [facility] , and was admitted on 05/17 after admission at [facility] for subdural hematoma. No call placed from the halfway about patient's history or mechanism fall. Patient does have a past history of anxiety, dementia, depression, hypertension, trigeminal neuralgia, chronic pain, spinal gliosis, BPH, subdural hematoma, and chronic arthritic pain. Patient has history of previous fall in which resulted at a subdural hemorrhage patient was transferred to [facility] at that time. Patient apparently remained at [facility] until admission to the [facility] on 05/17/2021. Patient denies any headache currently but does complain of Lt. hip and leg pain from the fall off the commode. No answer at halfway on telephone inquiries. Review of Systems: Review of Systems: Constitutional: Denies fever or chills Eyes: Denies change in visual acuity HENT: Denies nasal congestion or sore throat Respiratory: Denies cough or shortness of breath Cardiovascular: Denies chest pain or edema GI: Denies abdominal pain, nausea, vomiting, bloody stools or diarrhea : Denies dysuria Musculoskeletal: Complains of right hip and leg pain Integument: Denies rash Neurologic: Denies headache, focal weakness or sensory changes Endocrine: Denies polyuria or polydipsia Lymphatic: Denies swollen glands Psychiatric: Denies depression or anxiety Family History: Family History: Not currently available Current Medications: Current Meds: See nursing for halfway meds no list sent with patient Allergies: Allergies: Allergies Coded Allergies Type Severity Reaction Last Updated Verified enalaprilat Allergy Intermediate 01/19/20 Yes Physical Exam: PE: Constitutional: , no acute distress, non-toxic appearance. [] HENT: Normocephalic, atraumatic, bilateral external ears normal, oropharynx moist, no oral exudates, nose normal. [] Eyes: PERRLA, EOMI, conjunctiva normal, no discharge. [] Neck: Normal range of motion, no tenderness, supple, no stridor. [] Cardiovascular:Heart rate regular rhythm, no murmur [] PMI to the left Lungs & Thorax: Bilateral breath sounds equal apex on auscultation [] Abdomen: Bowel sounds normal, soft, no tenderness, no masses, no pulsatile mas ses. Obese. Skin: Warm, dry, no erythema, no rash. Contusions- different levels of healing. Back: No tenderness, no CVA tenderness. [] Extremities: No tenderness, no cyanosis, no clubbing, ROM intact, no edema. Except Lt. leg and hip tenderness. No cording. Arthritic changes Neurologic: Alert and oriented X 3, moves all extremities on request, does appear to have distal sensory function, no new focal deficits noted. [] Psychologic: Affect argumentative, judgement does appear to memory, mood depressed EKG: EKG: [] Radiology/Procedures: Radiology/Procedures: [place] [address] IMAGING REPORT Signed PATIENT: EVELIO BALDERRAMA ACCOUNT: [id number] : 1930 LOCATION: ER AGE: 89 SEX: M EXAM STATUS: REG ER ORD. PHYSICIAN: BARBARA LINN MD REASON: Fall, chest pain, altered mental status PROCEDURE: PORTABLE CHEST 1V Exam: Chest one view INDICATION: Fall, chest pain, altered mental status TECHNIQUE: Frontal view of the chest Comparisons: 05/06/2020 FINDINGS: The cardiomediastinal silhouette and pulmonary vessels are within normal limits. The lung and pleural spaces are clear. IMPRESSION: No acute cardiopulmonary process. Electronically signed by: Cheyenne Berry MD (05/25/2020 10:34 PM) [facility] DICTATED AND SIGNED BY: CHEYENNE BERRY MD DATE: 05/25/202231 CC: BARBARA LINN MD; DAVION HAYS MD ~MTH0 [address] [id number] IMAGING REPORT Signed PATIENT: EVELIO BALDERRAMA ACCOUNT: [id number] : 1930 LOCATION: ER AGE: 89 SEX: M EXAM STATUS: REG ER ORD. PHYSICIAN: BARBARA LINN MD REASON: Fall, left upper leg and pelvic pain PROCEDURE: LEFT FEMUR XRAY Exam: Pelvis one view. Left femur 2 views INDICATION: Fall, pelvic pain TECHNIQUE: Frontal view of pelvis. Frontal and lateral views of the left femur Comparisons: None FINDINGS: Pelvis: Diffuse osteopenia. No acute fractures identified. Soft tissues are unremarkable. Joint spaces are well-maintained. Femur: Left hip fixation is noted. Diffuse osteopenia. No acute fractures identified. Joint spaces are well-maintained. IMPRESSION: Diffuse osteopenia without acute fracture identified at the pelvis or left femur. If the patient is acutely unable to bear weight consider cross-sectional imaging for further evaluation. Electronically signed by: Cheyenne Berry MD (05/25/2020 10:36 PM) [facility] DICTATED AND SIGNED BY: CHEYENNE BERRY MD DATE: 05/25/202233 CC: BARBARA LINN MD; DAVION HAYS MD ~MTH0 [address] [id number] IMAGING REPORT Signed PATIENT: EVELIO BALDERRAMA ACCOUNT: [id number] : 1930 LOCATION: ER AGE: 89 SEX: M EXAM STATUS: REG ER ORD. PHYSICIAN: BARBARA LINN MD REASON: Fall, pelvis pain PROCEDURE: PELVIS Exam: Pelvis one view. Left femur 2 views INDICATION: Fall, pelvic pain TECHNIQUE: Frontal view of pelvis. Frontal and lateral views of the left femur Comparisons: None FINDINGS: Pelvis: Diffuse osteopenia. No acute fractures identified. Soft tissues are unremarkable. Joint spaces are well-maintained. Femur: Left hip fixation is noted. Diffuse osteopenia. No acute fractures identified. Joint spaces are well-maintained. IMPRESSION: Diffuse osteopenia without acute fracture identified at the pelvis or left femur. If the patient is acutely unable to bear weight consider cross-sectional imaging for further evaluation. Electronically signed by: Cheyenne Berry MD (05/25/2020 10:36 PM) [facility] DICTATED AND SIGNED BY: CHEYENNE BERRY MD DATE: 05/25/202233 CC: BARBARA LINN MD; DAVION HAYS MD ~MTH0 0 [][place] [address] IMAGING REPORT Signed PATIENT: EVELIO BALDERRAMA ACCOUNT: [id number] : 1930 LOCATION: ER AGE: 89 SEX: M EXAM STATUS: REG ER ORD. PHYSICIAN: BARBARA LINN MD REASON: Fall, pelvis pain PROCEDURE: PELVIS Exam: Pelvis one view. Left femur 2 views INDICATION: Fall, pelvic pain TECHNIQUE: Frontal view of pelvis. Frontal and lateral views of the left femur Comparisons: None FINDINGS: Pelvis: Diffuse osteopenia. No acute fractures identified. Soft tissues are unremarkable. Joint spaces are well-maintained. Femur: Left hip fixation is noted. Diffuse osteopenia. No acute fractures identified. Joint spaces are well-maintained. IMPRESSION: Diffuse osteopenia without acute fracture identified at the pelvis or left femur. If the patient is acutely unable to bear weight consider cross-sectional imaging for further evaluation. Electronically signed by: Cheyenne Berry MD (05/25/2020 10:36 PM) [facility] DICTATED AND SIGNED BY: CHEYENNE BERRY MD DATE: 05/25/202233 CC: BARBARA LINN MD; DAVION HAYS MD ~MTH0 0 Heart Score: Risk Factors: Risk Factors: DM, Current or recent (<one month) smoker, HTN, HLP, family history of CAD, obesity. Risk Scores: Score 0 - 3: 2.5% MACE over next 6 weeks - Discharge Home Score 4 - 6: 20.3% MACE over next 6 weeks - Admit for Clinical Observation Score 7 - 10: 72.7% MACE over next 6 weeks - Early Invasive Strategies Course & Med Decision Making: Course & Med Decision Making Pertinent Labs and Imaging studies reviewed. (See chart for details) Discussed presentation testing with neurosurgery Dr. Montanez's team-advised that he had monitored the patient at [facility] felt that he can be returned to the halfway for rehab. Patient was found to have a UTI and was started on antibiotics. Cipro 500 twice a day. Follow up pending cultures and COVID test. Patient resume his previous directed meds. Impression: 1. Hx. frequent Falls 2. Hx. of subacute subdural hematoma-no acute change except findings of slow resolution 3. Urinary tract infection 4. Dementia 5. Elevated D-dimer 1.95- felt secondary from falls and subdural 6. Lt. Hip contusion [] Dragon Disclaimer: Dragon Disclaimer: This electronic medical record was generated, in whole or in part, using a voice recognition dictation system. Departure Departure: Referrals: DAVION HAYS MD (PCP) Scripts Ciprofloxacin (Ciprofloxacin) 500 Mg/5 Ml [facility]..rec 500 MG PO BID for UTI for 7 Days, MISC Prov: BARBARA LINN MD 05/26/20 Eligio Disclaimer This chart was dictated in whole or in part using Voice Recognition software in a busy, high-work load, and often noisy Emergency Department environment. It may contain unintended and wholly unrecognized errors or omissions. BARBARA LINN MD May 25, 2020 21:05
[2020-05-25] MEDS ORDERED: IV RINGERS SOLUTION,LACTATED 1,000 ML IV SCH (21:15)
--- NOTE | 2020-05-25 21:29 | EKG ---
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
[2020-05-25 21:42] LABS: BASO % 1 % (0-3); EOS # 0.1 x10^3/uL (0.0-0.7); EOS % 1 % (0-3); HEMATOCRIT 39.6 % (39.0-53.0); HEMOGLOBIN 13.4 g/dL (13.0-17.5); LYMPH # 1.4 x10^3/uL (1.0-4.8); LYMPH % 18 % (24-48); MEAN CORPUSCULAR HEMOGLOBIN 32 pg (25-35); MEAN CORPUSCULAR HGB CONC 34 g/dL (31-37); MEAN CORPUSCULAR VOLUME 96 fL (79-100); MONO # 0.7 x10^3/uL (0.0-1.1); MONO % 9 % (0-9); NEUT # 5.7 x10^3uL (1.8-7.7); NEUT % 72 % (31-73); PLATELET COUNT 193 x10^3/uL (140-400); RED BLOOD COUNT 4.14 x10^6/uL (4.30-5.70); RED CELL DISTRIBUTION WIDTH 13.1 % (11.5-14.5)
[2020-05-25 21:54] LABS: CALCIUM 8.5 mg/dL (8.5-10.1); CREATININE 1.3 mg/dL (0.7-1.3); GFR 52.1; POTASSIUM 4.1 mmol/L (3.5-5.1)
[2020-05-25 22:09] LABS: ALBUMIN 3.3 g/dL (3.4-5.0); DIRECT BILIRUBIN 0.2 mg/dL (0.0-0.2); MAGNESIUM 2.2 mg/dL (1.8-2.4); TOTAL BILIRUBIN 0.6 mg/dL (0.2-1.0); TOTAL PROTEIN 6.6 g/dL (6.4-8.2)
--- NOTE | 2020-05-25 22:36 | RAD ---
Exam: Chest one view INDICATION: Fall, chest pain, altered mental status TECHNIQUE: Frontal view of the chest Comparisons: 05/06/2020 FINDINGS: The cardiomediastinal silhouette and pulmonary vessels are within normal limits. The lung and pleural spaces are clear. IMPRESSION: No acute cardiopulmonary process. Electronically signed by: Cheyenne Vasquez MD (05/25/2020 10:34 PM) [facility]
--- NOTE | 2020-05-25 22:38 | RAD ---
Exam: Pelvis one view. Left femur 2 views INDICATION: Fall, pelvic pain TECHNIQUE: Frontal view of pelvis. Frontal and lateral views of the left femur Comparisons: None FINDINGS: Pelvis: Diffuse osteopenia. No acute fractures identified. Soft tissues are unremarkable. Joint spaces are we ll-maintained. Femur: Left hip fixation is noted. Diffuse osteopenia. No acute fractures identified. Joint spaces are well- maintained. IMPRESSION: Diffuse osteopenia without acute fracture identified at the pelvis or left femur. If the patient is a cutely unable to bear weight consider cross-sectional imaging for further evaluation. Electronically signed by: Cheyenne Vasquez MD (05/25/2020 10:36 PM) [facility]
--- NOTE | 2020-05-25 22:44 | RAD ---
Exam: CT head and cervical spine without contrast INDICATION: Fall, altered mental status TECHNIQUE: Sequential axial images through the head and cervical spine were obtained without the admi nistration of IV contrast. Comparisons: CT head 05/12/2020 FINDINGS: Head: Subacute subdural hematoma overlying the left cerebral hemisphere measuring 6 mm in thickness. There is no midline shift or sulcal effacement. Patchy hypodensity in the periventricular white matter. No acute vascular territory infarction is mahin ntified. Morris-white distinction is preserved. The ventricular system is within normal limits without compression hydrocephalus. The basal cisterns are well maintained. The visualized portions of the paranasal sinuses and mastoid air cells are well-pneumatized. No acute fractures. Cervical spine: There is straightening of cervical spine which may positional. Vertebral body heights are well-mainta ined. Fracture to the cervical spine is not identified. Multilevel spondylotic change in cervical spine with degenerative disc disease greatest at C5-C6 and C6-C7. Mild bilateral facet arthropathy is also noted. Visualized paraspinal soft tissues are unremarkable. IMPRESSION: 1. Subacute subdural hematoma overlying the right cerebral hemisphere measuring approximately 6 mm i n thickness without significant mass effect. No acute hemorrhagic component is identified. 2. Negative CT C-spine for acute traumatic injury. Exposure: One or more of the following in the visualized dose reduction techniques were utilized for this examination: 1. Automated exposure control 2. Adjustment of the MA and/or KV according to patient size Use of iterative of reconstructive technique Electronically signed by: Cheyenne Vasquez MD (05/25/2020 10:41 PM) [facility]
[2020-05-25 23:37] LABS: BARBITURATES NEG (NEG); BENZODIAZEPINES NEG (NEG); CANNABINOIDS NEG (NEG); COCAINE NEG (NEG); METHADONE NEG (NEG); OPIATES NEG (NEG); PHENCYCLIDINE NEG (NEG)
[2020-05-25 23:42] LABS: AMPHETAMINE/METHAMPHETAMINE NEG (NEG)
[2020-05-25 23:52] LABS: BILIRUBIN,URINE NEG (NEG); CLARITY,URINE CLOUDY; COLOR,URINE YELLOW; GLUCOSE,URINE NEG (NEG); NITRITE,URINE POS (NEG); UROBILINOGEN,URINE 0.2 mg/dL (0.2 mg/dL)
[2020-05-25 23:53] LABS: BACTERIA,URINE MANY /HPF (0-FEW); SQUAMOUS EPITHELIAL CELL,UR FEW /LPF; WBC,URINE 20-40 /HPF (0-4)
[2020-05-26] MEDS ORDERED: IV NORMAL SALINE 50ML 50 ML ONE (02:41)
[2020-05-26] MEDS ORDERED: cefTRIAXone SODIUM 1 GM VIAL ONE (02:41)
[2020-05-26] MEDS ORDERED: CIPR500S3 PO (02:49)
--- NOTE | 2020-05-28 09:39 | NUR ---
IP: attempt to notify [facility] of COVID result, on hold >10 minutes, will try later.
--- NOTE | 2020-05-28 11:57 | NUR ---
IP: notified nurse Pito of COVID result.
== END 2020-05-26 03:52 | disposition home or self-care (01) ==
LOC: ER 20:44
DX: S06.5X9A Traumatic subdural hemorrhage with loss of consciousness of unspecified duration, initial encounter (principal); S70.02XA Contusion of left hip, initial encounter; N39.0 Urinary tract infection, site not specified; F03.90 Unspecified dementia, unspecified severity, without behavioral disturbance, psychotic disturbance, mood disturbance, and anxiety; R79.1 Abnormal coagulation profile; R29.6 Repeated falls; M25.551 Pain in right hip; F41.9 Anxiety disorder, unspecified; F32.9 Major depressive disorder, single episode, unspecified; I10 Essential (primary) hypertension; G89.29 Other chronic pain; Z20.822 Contact with and (suspected) exposure to COVID-19; Z87.440 Personal history of urinary (tract) infections; Z88.8 Allergy status to other drugs, medicaments and biological substances; W18.11XA Fall from or off toilet without subsequent striking against object, initial encounter; Y93.89 Activity, other specified; Y92.89 Other specified places as the place of occurrence of the external cause; Y99.8 Other external cause status
CPT/HCPCS: 36415; 70450; 71045; 72125; 72170; 73552; 80048; 80076; 80307; 81001; 82550; 83690; 83735; 83880; 84443; 84484; 85025; 85379; 85610; 85730; 87077; 87086; 87186; 93005; 96361; 96365; 99285; C9803; J0696; J7120; U0003

== ENCOUNTER → 2020-05-28 | Outpatient (CLI) | payer MEDICARE ==
[2020-05-25 21:02] VITALS: BP 118/64
[~2020-05-28] MED LIST changes: +CIPR500S3 PO
--- NOTE | 2020-05-28 11:50 | RAD ---
Exam performed: CT head without contrast. HISTORY: Follow-up subdural hematoma. DATE OF SERVICE: 05/28/2020. Comparison made to prior CT head without contrast from 05/25/2020 and 2020 TECHNIQUE: Contiguous helical acquisitions are obtained from the foramen magnum to the vertex without IV contrast. FINDINGS: Previously seen right hemispheric subdural hematoma is near CSF density and is unchanged in size sinc e prior study. No acute or chronic subdural hemorrhage is identified. Prominence of cortical sulci and ventricular system is noted consistent with age-related atrophy. The re are areas of low-attenuation in both periventricular and subcortical deep white matter suggesting small vessel ischemic changes. There is no intraparenchymal hemorrhage or mass lesion. Visualized orb its, paranasal sinuses and the mastoid air cells are clear. IMPRESSION: Late subacute/chronic right hemispheric subdural hematoma appears unchanged since previous study. No acute findings seen. Electronically signed by: Haven Barton MD (05/28/2020 11:48 AM) [id number]
== END ==
LOC: CT 11:10
PROVIDERS: ATTEND Neurological Surgery
DX: S06.5X9A Traumatic subdural hemorrhage with loss of consciousness of unspecified duration, initial encounter (principal); X58.XXXA Exposure to other specified factors, initial encounter; Y93.89 Activity, other specified; Y92.89 Other specified places as the place of occurrence of the external cause; Y99.8 Other external cause status
CPT/HCPCS: 70450